=== PATIENT | female | born 1965 | race Two or more races ===

== ENCOUNTER 2020-09-14 17:33 | Outpatient (REF) | payer MEDICAID, SELFPAY | END 2020-09-14 17:34 | disposition home or self-care (01) | LOC: HO.LAB 17:33 | PROVIDERS: Visit Provider Internal Medicine | DX: Z20.822 Contact with and (suspected) exposure to COVID-19 (principal) | CPT/HCPCS: 36415; C9803; U0003 ==

== ENCOUNTER 2020-09-24 11:20 | Outpatient (REF) | payer MEDICAID, SELFPAY | END 2020-09-24 11:21 | disposition home or self-care (01) | LOC: HO.LAB 11:20 | PROVIDERS: Visit Provider Internal Medicine | DX: Z20.822 Contact with and (suspected) exposure to COVID-19 (principal) | CPT/HCPCS: 36415; C9803; U0003; U0005 ==

== ENCOUNTER 2020-10-09 09:38 | Outpatient (REF) | payer MEDICAID, SELFPAY ==
--- NOTE | ~2020-10-09 | MM_ITS ---
EXAMINATION: MM SCREENING DIGITAL BREAST TOMOSYNTHESIS, BILATERAL CLINICAL INFORMATION: Screening. Asymptomatic. Prior outside mammography from [place] at unknown facility and unavailable. Age 55. No known family history breast cancer. The lifetime risk of breast cancer based on the Tyrer-Cuzick Model is 9%. COMPARISON: None. TECHNIQUE: Digital breast tomosynthesis is performed in both the craniocaudal and mediolateral oblique views along with computer-aided detection (CAD). Synthesized 2D images are generated from the tomosynthesis. FINDINGS: There are scattered areas of fibroglandular density (ACR BI-RADS breast composition Category b). There is inhomogeneous parenchymal pattern with benign-appearing bilateral asymmetries. There is no significant mass or architectural abnormality. There are scattered benign-appearing calcifications including grouped coarse mid upper outer left breast, as well as some vascular and probable dermal calcifications. The axilla and skin contours are unremarkable. MM/MM tomosynthesis screening BI IMPRESSION: No mammographic evidence of malignancy. ASSESSMENT: BI-RADS 2: Benign RECOMMENDATION: Routine annual mammography screening. This patient's information was entered into a reminder system with a target due date for their next mammogram.
== END 2020-10-09 09:39 | disposition home or self-care (01) ==
LOC: HO.MAMMO 09:38
PROVIDERS: PCP Emergency Medicine; Visit Provider Emergency Medicine
DX: Z12.31 Encounter for screening mammogram for malignant neoplasm of breast (principal)
CPT/HCPCS: 77063; 77067

== ENCOUNTER 2020-10-24 11:00 | Outpatient (RCR) | payer MEDICAID, SELFPAY | END 2020-11-23 15:05 | disposition other institution (70) | LOC: HO.PT 11:00 | PROVIDERS: PCP Emergency Medicine; Visit Provider Emergency Medicine | DX: M25.572 Pain in left ankle and joints of left foot (principal) | CPT/HCPCS: 97110; 97140; 97162 ==

== ENCOUNTER → 2021-01-09 13:18 | Outpatient (BNVA) | payer MEDICAID, SELFPAY | PROVIDERS: Visit Provider Orthopaedic Surgery | DX: S93.402D Sprain of unspecified ligament of left ankle, subsequent encounter (principal) | CPT/HCPCS: 99202 ==

== ENCOUNTER 2021-03-01 12:00 | Outpatient (RCR) | payer MEDICAID, SELFPAY ==
--- NOTE | 2021-02-12 14:50 | MHC.PT.EP ---
[facility] [place] [facility] [place] [facility] [place] [facility] [address] Lenin Nguyen [address] [phone] F: [phone] F: [phone] F: [phone] F: [phone] Physical Therapy Plan of Care Date of Evaluation: Date of Surgery: Diagnosis: sprain of unspecified ligament of L ankle Assessment: 55 y/o female referred to PT for sprain of unspecified ligament of L ankle. Of note, pt has been to PT for L ankle sprain but had poor attendance. Pt presents wearing a L ankle brace and reports wearing it for walking. PMH significant for HTN, DM, and fibromyalgia. Pt complains of pain and difficulty walking, navigating stairs, sleeping, and getting into/out of bathtub. Examination shows increased pain/tenderness with L lateral ankle palpation, significantly decreased strength of L>R ankle (?limited d/t pain), decreased L ankle ROM, and gait impairments. Balance to be assessed next visit. Recommend PT 2x/week for 6 weeks to address impairments, implement HEP, and optimize functional mobility. Frequency and Duration: The patient will be seen 2x/week for 6 weeks Short Term Goals: 3 weeks: 1. I with HEP 2. Pt will report 50% decrease in reported ankle pain 3. Pt will increase B ankle strength by 1 MMT in all directions Wire Insulator Goals: 6 weeks: 1. I with HEP and self-management of sx 2. Pt will be able to ambulate for >30 mins with <3/10 pain 3. Pt will be able to get into/out of shower with <3/10 pain Treatment Plan: Modalities to reduce pain, spasms and effusion. Manual therapy to restore motion and function. Therapeutic exercise to improve strength and flexibility. Neuromuscular re-education for posture and balance. Therapeutic activities to return to functional activities of daily living. Electronically signed by: Ayde Orozco PT Please sign and return to therapist. Thank you for your referral.
--- NOTE | 2021-03-05 14:10 | MHC.PT.DC ---
[facility] [place] [facility] [place] [facility] [place] [facility] [address] Lenin Nguyen [address] [phone] F: [phone] F: [phone] F: [phone] F: [phone] Physical Therapy Discharge Report Diagnosis: sprain of unspecified ligament of L ankle Date of Surgery: Date of Evaluation: 02/12/21 Date of Discharge: 03/05/21 Treatments to Date: 3 Cancellations to Date: 1 No Shows to Date: 3 Discharge Status: Visit Non-compliance Discharge Summary: Pt d/c secondary to noncompliance with scheduling policy and 3 no show visits and one cancellation. Electronically signed by: Ayde Orozco PT Please sign and return to therapist. Thank you for your referral.
== END 2021-03-05 14:10 | disposition home or self-care (01) ==
LOC: HO.PT 12:00
PROVIDERS: PCP Internal Medicine; Visit Provider Orthopaedic Surgery
DX: S93.402S Sprain of unspecified ligament of left ankle, sequela (principal)
CPT/HCPCS: 97110; 97162

== ENCOUNTER → 2021-09-26 10:43 | Outpatient (BNVA) | payer MEDICAID, SELFPAY | PROVIDERS: PCP Registered Nurse Community Health; Referring Provider Registered Nurse Community Health; Visit Provider Nurse Practitioner | DX: K59.04 Chronic idiopathic constipation (principal); K21.9 Gastro-esophageal reflux disease without esophagitis | CPT/HCPCS: 99202 ==

== ENCOUNTER 2021-10-19 09:33 | Outpatient (REF) | payer MEDICAID, SELFPAY ==
--- NOTE | ~2021-10-19 | MM_ITS ---
EXAMINATION: MM SCREENING DIGITAL BREAST TOMOSYNTHESIS, BILATERAL CLINICAL INFORMATION: Screening. Asymptomatic. The lifetime risk of breast cancer based on the Tyrer-Cuzick Model is 7%. COMPARISON: Mammography: 10/09/2020 (new baseline). TECHNIQUE: Digital breast tomosynthesis is performed in both the craniocaudal and mediolateral oblique views along with computer-aided detection (CAD). Synthesized 2D images are generated from the tomosynthesis. FINDINGS: There are scattered areas of fibroglandular density (ACR BI-RADS breast composition Category b). Breast tissue composition borders on heterogeneously dense in the bilateral anterior breasts. Parenchymal pattern is similar to prior new baseline exam. There is no interval mass or architectural abnormality. The axilla and skin contours are unremarkable. Right breast has grouped dermal calcifications posterior 5:00 position. There are some punctate dermal calcifications also noted bilateral posterior medial breast. The left breast has increased grouped coarse calcifications mid upper outer quadrant. Patient will be recalled for additional magnification views to fully characterize this area. MM/MM tomosynthesis screening BI IMPRESSION: 1. Left: Increased grouped probable benign coarse calcifications mid upper outer quadrant. 2. Right: No mammographic evidence of malignancy. ASSESSMENT: BI-RADS 0: Incomplete - Need Additional Imaging Evaluation RECOMMENDATION: 1. Additional views of the left breast (magnification CC, magnification ML). 2. Radiology department staff will contact the patient for additional imaging. This patient's information was entered into a reminder system with a target due date for their next mammogram.
== END 2021-10-19 09:34 | disposition home or self-care (01) ==
LOC: HO.MAMMO 09:33
PROVIDERS: PCP Internal Medicine; Visit Provider Internal Medicine
DX: Z12.31 Encounter for screening mammogram for malignant neoplasm of breast (principal)
CPT/HCPCS: 77063; 77067

== ENCOUNTER 2021-10-25 12:27 | Outpatient (REF) | payer MEDICAID, SELFPAY ==
--- NOTE | ~2021-10-25 | MM_ITS ---
EXAMINATION: MM DIAGNOSTIC DIGITAL MAMMOGRAPHY, LEFT CLINICAL INFORMATION: Recall from screening for increased grouped probable benign coarse calcification mid upper outer left breast. COMPARISON: Mammography: 10/19/2021, 10/09/2020 (new baseline). TECHNIQUE: Digital mammography is performed in the following views: Magnification CC x2, magnification ML. FINDINGS: There are scattered areas of fibroglandular density (ACR BI-RADS breast composition Category b). The additional magnification views confirm coarse benign-appearing calcifications upper outer left breast increased from 2020. They are arranged in a circular distribution suggesting fibroadenomatous changes. Results are discussed with the patient at time of visit. 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 ASSESSMENT: BI-RADS 3: Probably Benign RECOMMENDATION: Diagnostic left mammography in 6 months. This patient's information was entered into a reminder system with a target due date for their next mammogram.
== END 2021-10-25 12:28 | disposition home or self-care (01) ==
LOC: HO.MAMMO 12:27
PROVIDERS: PCP Registered Nurse Community Health; Visit Provider Internal Medicine
DX: R92.1 Mammographic calcification found on diagnostic imaging of breast (principal)
CPT/HCPCS: 77065

== ENCOUNTER 2021-10-29 14:44 | Outpatient (REF) | payer MEDICAID, SELFPAY ==
[2021-10-29 14:56] LABS: MANUAL DIFF FLAG NO
[2021-10-29 15:10] LABS: Basophils Absolute Auto 0.1 X10*3/uL (0.0-0.2); Basophils Percent Auto 0.9 % (0-2); Eosinophils Absolute Auto 0.2 X10*3/uL (0.0-0.4); Eosinophils Percent Auto 2.6 % (0-4); Hematocrit 39.6 % (37.0-47.0); Hemoglobin 13.1 g/dl (12.0-16.0); Imm Gran Abs Auto 0.01 X10*3/uL (0.00-0.03); Imm Gran Pct Auto 0.2 % (0.0-0.4); Lymphocytes Absolute Auto 2.6 X10*3/uL (1.2-4.9); Lymphocytes Percent Auto 45.3 % (20-40); Mean Corpuscular HGB Conc 33.1 g/dl (31.0-35.0); Mean Corpuscular Volume 87.8 fL (80.0-98.0); Mean Platelet Volume 11.1 fL (9.4-12.3); Monocytes Absolute Auto 0.4 X10*3/uL (0.1-1.2); Monocytes Percent Auto 6.7 % (2-11); Neutrophils Absolute Auto 2.5 x10*3/uL (2.0-8.3); Neutrophils Percent Auto 44.3 % (45-73); Platelet Count 297 X10*3/uL (160-400); Red Blood Count 4.51 X10*6/uL (4.20-5.50); Red Cell Distribution Width 12.1 % (11.0-16.0); White Blood Count 5.7 X10*3/uL (4.8-10.8)
[2021-10-29 15:38] LABS: Alanine Aminotransferase 26 U/L (0-31); Albumin Level 4.2 g/dL (3.5-5.0); Alkaline Phosphatase 110 U/L (39-117); Anion Gap 14 (12-20); Aspartate Amino Transferase 14 U/L (5-31); Bilirubin Total < 0.2 mg/dL (0.0-1.0); Blood Urea Nitrogen 15 mg/dL (9-16); Calcium 9.9 mg/dL (8.4-10.2); Carbon Dioxide 31 mmol/L (22-29); Chloride 95 mmol/L (96-108); Estimated Glomerular Filt Rate 51; Glucose Random 457 mg/dL (60-115); Sodium 135 mmol/L (135-145); Total Protein 7.8 g/dL (6.5-8.0)
[2021-10-29 15:49] LABS: TSH reflex Free T4 7.01 uIU/mL (0.32-4.0)
[2021-10-29 16:24] LABS: Free T4 (Free Thyroxine) 1.09 ng/dL (0.71-1.85)
== END 2021-10-29 14:45 | disposition home or self-care (01) ==
LOC: HO.LAB 14:44
PROVIDERS: PCP Registered Nurse Community Health; Visit Provider Nurse Practitioner
DX: K21.9 Gastro-esophageal reflux disease without esophagitis (principal); K59.04 Chronic idiopathic constipation
CPT/HCPCS: 36415; 80053; 84439; 84443; 85025

== ENCOUNTER → 2021-10-31 15:35 | Outpatient (BNVA) | payer MEDICAID, SELFPAY | PROVIDERS: PCP Registered Nurse Community Health; Referring Provider Registered Nurse Community Health; Visit Provider Nurse Practitioner | DX: K59.04 Chronic idiopathic constipation (principal); K21.9 Gastro-esophageal reflux disease without esophagitis; R10.13 Epigastric pain | CPT/HCPCS: 99212 ==

== ENCOUNTER 2022-04-29 13:04 | Outpatient (REF) | payer MEDICAID, SELFPAY ==
--- NOTE | ~2022-04-29 | MM_ITS ---
EXAMINATION: MM DIAGNOSTIC DIGITAL BREAST TOMOSYNTHESIS, LEFT CLINICAL INFORMATION: Short interval six-month follow-up probable benign fibroadenomatous calcifications mid upper outer left breast. The lifetime risk of breast cancer based on the Tyrer-Cuzick Model is 7%. COMPARISON: Mammography: 10/25/2021, 10/19/2021 (BI-RADS 0), 10/09/2020 (new baseline). TECHNIQUE: Digital breast tomosynthesis is performed in both the craniocaudal and mediolateral oblique views along with computer-aided detection (CAD). Synthesized 2D images are generated from the tomosynthesis. Additional magnification left CC and magnification left ML views are obtained. FINDINGS: There are scattered areas of fibroglandular density (ACR BI-RADS breast composition Category b). Parenchymal pattern is similar to the prior studies and there is no developing density or interval mass or architectural abnormality. The grouped coarse calcifications mid upper outer quadrant show no significant change from prior diagnostic exam. They are arranged circumferentially on the ML view and suggestive of degenerating fibroadenoma. Results are provided to the patient at time of visit by the technologist. MM/MM tomosynthesis diagnostic LT IMPRESSION: -No significant change in probable benign coarse calcifications mid upper outer left breast, suspect fibroadenomatous change. ASSESSMENT: BI-RADS 3: Probably Benign RECOMMENDATION: Diagnostic mammography at time of annual bilateral exam, due in 6 months. This patient's information was entered into a reminder system with a target due date for their next mammogram.
== END 2022-04-29 13:05 | disposition home or self-care (01) ==
LOC: HO.MAMMO 13:04
PROVIDERS: Visit Provider Internal Medicine
DX: R92.1 Mammographic calcification found on diagnostic imaging of breast (principal)
CPT/HCPCS: 77061; 77065

== ENCOUNTER → 2022-08-06 10:53 | Outpatient (BNVA) | payer MEDICAID, SELFPAY | PROVIDERS: PCP Registered Nurse Community Health; Visit Provider Internal Medicine Endocrinology, Diabetes & Metabolism | DX: E11.9 Type 2 diabetes mellitus without complications (principal); Z79.84 Long term (current) use of oral hypoglycemic drugs | CPT/HCPCS: 82947; 83036; 99202 ==

== ENCOUNTER 2022-10-31 14:29 | Outpatient (REF) | payer MEDICAID, SELFPAY ==
--- NOTE | ~2022-10-31 | MM_ITS ---
EXAMINATION: MM DIAGNOSTIC DIGITAL BREAST TOMOSYNTHESIS, BILATERAL CLINICAL INFORMATION: Screening right breast mammogram. Six-month follow-up left breast calcifications. The lifetime risk of breast cancer based on the Tyrer-Cuzick Model is 7.0%. COMPARISON: Mammography: 04/29/2022 and studies dating back to 10/09/2020. TECHNIQUE: Digital breast tomosynthesis is performed in both the craniocaudal and mediolateral oblique views along with computer-aided detection (CAD). Synthesized 2D images are generated from the tomosynthesis. Spot magnification views of the left breast in craniocaudal and 90 degree mediolateral views also performed. FINDINGS: There are scattered areas of fibroglandular density (ACR BI-RADS breast composition Category b). RIGHT BREAST: There is a stable appearance of the right breast with grouping of skin calcifications about the inferior medial aspect. LEFT BREAST: Within the left breast there is a minimal increase in calcifications in dense punctate grouping in the upper outer aspect. Recommend 1 year follow-up bilateral mammography with spot magnification views of the left breast at that time. Results are provided to the patient at time of visit by the technologist. MM/MM tomosynthesis diagnostic BI IMPRESSION: There are no significant changes from prior study. ASSESSMENT: BI-RADS 3: Probably Benign RECOMMENDATION: Diagnostic mammography at time of next annual exam, due in 12 months. This patient's information was entered into a reminder system with a target due date for their next mammogram.
== END 2022-10-31 14:30 | disposition home or self-care (01) ==
LOC: HO.MAMMO 14:29
PROVIDERS: PCP Registered Nurse; Visit Provider Registered Nurse Community Health
DX: R92.1 Mammographic calcification found on diagnostic imaging of breast (principal)
CPT/HCPCS: 77062; 77066

== ENCOUNTER 2022-11-03 09:30 | Outpatient (REF) | payer MEDICAID, SELFPAY ==
[2022-11-03 11:43] LABS: Creatinine Urine 131.42 mg/dL; Microalbum/Creatinine Ratio Ur 5.3 ug/mg cr
[2022-11-03 11:43] LABS: Cholesterol 228 mg/dL; HDL Cholesterol 54 mg/dL; LDL Cholesterol Calculated 139 mg/dl; Triglycerides 176 mg/dL
== END 2022-11-03 09:31 | disposition home or self-care (01) ==
LOC: HO.LAB 09:30
PROVIDERS: PCP Registered Nurse; Visit Provider Internal Medicine Endocrinology, Diabetes & Metabolism
DX: E11.9 Type 2 diabetes mellitus without complications (principal)
CPT/HCPCS: 36415; 80061; 82043

== ENCOUNTER → 2022-11-21 08:35 | Outpatient (BNVA) | payer MEDICAID, SELFPAY | PROVIDERS: PCP Registered Nurse; Visit Provider Dietitian, Registered | DX: E11.9 Type 2 diabetes mellitus without complications (principal) | CPT/HCPCS: 97802 ==

== ENCOUNTER → 2022-12-10 08:50 | Outpatient (BNVA) | payer MEDICAID, SELFPAY | PROVIDERS: PCP Registered Nurse; Visit Provider Internal Medicine Endocrinology, Diabetes & Metabolism | DX: E11.9 Type 2 diabetes mellitus without complications (principal); E78.00 Pure hypercholesterolemia, unspecified | CPT/HCPCS: 82947; 83036; 99212 ==

== ENCOUNTER 2023-01-14 07:52 | Outpatient (REF) | payer MEDICAID, SELFPAY ==
[2023-01-14 09:19] LABS: Anion Gap 12 (12-20); Blood Urea Nitrogen 14 mg/dL (9-16); Calcium 9.6 mg/dL (8.4-10.2); Carbon Dioxide 31 mmol/L (22-29); Chloride 100 mmol/L (96-108); Estimated Glomerular Filt Rate > 60; Glucose Random 204 mg/dL (60-115); Potassium 3.6 mmol/L (3.3-5.1); Sodium 139 mmol/L (135-145)
[2023-01-20 21:54] LABS: NT-proBNP 94 pg/mL (<125)
== END 2023-01-14 07:53 | disposition home or self-care (01) ==
LOC: HO.LAB 07:52
PROVIDERS: PCP Registered Nurse; Visit Provider Internal Medicine Cardiovascular Disease
DX: R07.9 Chest pain, unspecified (principal)
CPT/HCPCS: 36415; 80048; 83880

== ENCOUNTER → 2023-02-05 10:24 | Outpatient (BNVA) | payer MEDICAID, SELFPAY | PROVIDERS: PCP Registered Nurse; Visit Provider Registered Nurse Diabetes Educator | DX: E11.9 Type 2 diabetes mellitus without complications (principal) | CPT/HCPCS: 99211 ==

== ENCOUNTER 2023-02-10 12:51 | Outpatient (AMB) | payer MEDICAID, SELFPAY ==
[2023-02-10 01:00] VITALS: BMI 36.9
--- NOTE | 2023-02-25 10:58 | MHC.AMNUTRGE ---
Intake VS Expanded 02/10/23 01:00 Height 5 ft 6 in Weight 228 lb 6.382 oz BMI 36.9 Intake Visit Reasons: DM Allergies No Known Allergies [No Known Allergies*] Allergy (Verified 12/10/22 08:56) HPI Nutrition Presentation Details Pt presents for [facility] session 2 for T2DM Most Recent Diabetes Results: Microalb/Creat Ratio 5.3 ug/mg cr 11/03/22 Cholesterol 228 mg/dL 11/03/22 HDL Cholesterol 54 mg/dL 11/03/22 Triglycerides 176 mg/dL 11/03/22 Creatinine 0.86 mg/dL (0.5-1.4) 01/14/23 Blood Urea Nitrogen 14 mg/dL (9-16) 01/14/23 Sodium 139 mmol/L (135-145) 01/14/23 Potassium 3.6 mmol/L (3.3-5.1) 01/14/23 Chloride 100 mmol/L (96-108) 01/14/23 Carbon Dioxide 31 mmol/L (22-29) H 01/14/23 Calcium 9.6 mg/dL (8.4-10.2) 01/14/23 PFSH Surgical History History of hysterectomy Hx of section Hx of removal of cyst Family History Mother Heart problem Family history of thyroid problem Hypertension Father Cancer Social History Household Members: Family Household Members Other:: daughter, granddaughter Patient Tobacco Use Status: Former Tobacco user Quit Date: 17 yrs ago Assessment & Plan Assessment & Plan (1) Diabetes: Code(s): E11.9 - Type 2 diabetes mellitus without complications Plan: Pt participated in [facility] education. Pt asked questions relevant to topics discussed. Patient Instructions: Topic discussed related to exercise Benefits of exercise including improving: insulin sensitivity, blood glucose level, cholesterol, blood pressure, mood and prevent muscle wasting Precaution with hypoglycemia and how to prevent and treat hypoglycemia Role of hydration and how to prevent dehydration Balancing meals with protein, complex carbohydrates Review healthy plate method Coding Level of Care Code Nutr Indiv Subseq (48894) Diagnoses Diabetes E11.9 Time Spent (min) 60 Comment [facility] [id number]
== END 2023-02-10 14:56 | disposition home or self-care (01) ==
LOC: HO.ENCR 12:51
PROVIDERS: PCP Registered Nurse; Visit Provider Dietitian, Registered
DX: E11.9 Type 2 diabetes mellitus without complications (principal)

== ENCOUNTER → 2023-02-10 12:51 | Outpatient (BNVA) | payer MEDICAID, SELFPAY | PROVIDERS: PCP Registered Nurse; Visit Provider Dietitian, Registered | DX: E11.9 Type 2 diabetes mellitus without complications (principal); Z71.3 Dietary counseling and surveillance | CPT/HCPCS: 97803 ==

== ENCOUNTER → 2023-02-12 10:49 | Outpatient (BNVA) | payer MEDICAID, SELFPAY | PROVIDERS: PCP Registered Nurse; Visit Provider Dietitian, Registered | DX: E11.9 Type 2 diabetes mellitus without complications (principal) | CPT/HCPCS: 97802 ==

== ENCOUNTER 2023-02-24 13:22 | Outpatient (AMB) | payer MEDICAID, SELFPAY ==
--- NOTE | 2023-02-25 09:25 | MHC.AMNUTRGE ---
Intake Intake Visit Reasons: DM Allergies No Known Allergies [No Known Allergies*] Allergy (Verified 12/10/22 08:56) HPI Nutrition Presentation Details Pt presents for [facility] education for T2DM. ? Patient participated in nutrition group? education session 3? Most Recent Diabetes Results: Microalb/Creat Ratio 5.3 ug/mg cr 11/03/22 Cholesterol 228 mg/dL 11/03/22 HDL Cholesterol 54 mg/dL 11/03/22 Triglycerides 176 mg/dL 11/03/22 Creatinine 0.86 mg/dL (0.5-1.4) 01/14/23 Blood Urea Nitrogen 14 mg/dL (9-16) 01/14/23 Sodium 139 mmol/L (135-145) 01/14/23 Potassium 3.6 mmol/L (3.3-5.1) 01/14/23 Chloride 100 mmol/L (96-108) 01/14/23 Carbon Dioxide 31 mmol/L (22-29) H 01/14/23 Calcium 9.6 mg/dL (8.4-10.2) 01/14/23 PFSH Surgical History History of hysterectomy Hx of section Hx of removal of cyst Family History Mother Heart problem Family history of thyroid problem Hypertension Father Cancer Social History Household Members: Family Household Members Other:: daughter, granddaughter Patient Tobacco Use Status: Former Tobacco user Quit Date: 17 yrs ago Assessment & Plan Assessment & Plan (1) Diabetes: Code(s): E11.9 - Type 2 diabetes mellitus without complications Plan: Pt participated in [facility] education. Pt asked questions relevant to topics discussed. Patient Instructions: Nutrition Topics Discussed were related to: -How to interpret the food label Discussed Serving Size and servings per container What is the % daily value -Recommendations for fats and sodium -Differences between fats (saturated fats, trans fats, monounsaturated fats , polyunsaturated fats) and food sources of various fats - Reading ingredient list -Goals for blood cholesterol level -Relationship of fats and sodium and heart health -Practice reading food labels and practice making healthier choices Coding Level of Care Code Nutr Indiv Subseq (38867) Diagnoses Diabetes E11.9 Time Spent (min) 60 Comment [facility] [id number]
== END 2023-02-24 16:19 | disposition home or self-care (01) ==
PROVIDERS: PCP Registered Nurse; Referring Provider Internal Medicine Endocrinology, Diabetes & Metabolism; Visit Provider Dietitian, Registered
DX: E11.9 Type 2 diabetes mellitus without complications (principal)

== ENCOUNTER → 2023-02-24 13:22 | Outpatient (BNVA) | payer MEDICAID, SELFPAY | PROVIDERS: Visit Provider Dietitian, Registered | DX: E11.9 Type 2 diabetes mellitus without complications (principal) | CPT/HCPCS: 97803 ==

== ENCOUNTER 2023-02-26 09:17 | Outpatient (AMB) | payer MEDICAID, SELFPAY ==
[2023-02-26 09:18] VITALS: BP 120/70; PULSE 65; O2SAT 98; BMI 37.2
--- NOTE | 2023-02-26 09:18 | A.OFFVIS_ITS ---
Intake Vital Signs 02/26/23 09:18 Height 5 ft 6 in Weight 230 lb 6.129 oz BMI 37.2 BP 120/70 Blood Pressure Location Rt brachial Position Sitting Pulse 65 Pulse Source Pulse Oximeter Pulse Oximetry (%) 98 Oxygen Delivery Method Room Air Intake Visit Reasons: f/u Type 2 DM Intake Note: Patient present today to follow up on Type 2 Diabetes Mellitus. Last Diabetic Eye exam: February 23, 2023 Last Podiatry Visit: Doesn't see one Random Glucose: 259mg/dl HgA1C: 9.0% 12/10/2022 Allergies No Known Allergies [No Known Allergies*] Allergy (Verified 02/26/23 09:18) Medication List - Last Reconciled 02/26/23 by Shaggy Lowe MD albuterol sulfate 2.5 mg inhalation Q6H alcohol swabs (Alcohol Prep Pads) 0 pad topical DIRECTED amitriptyline 150 mg PO BEDTIME amlodipine 2.5 mg PO DAILY aspirin 81 mg PO DAILY atenolol 25 mg PO DAILY atorvastatin 80 mg PO DAILY blood sugar diagnostic (FreeStyle Lite Strips) As directed bupropion HCl 75 mg PO TID calcium polycarbophil (Fiber-Lax) 625 mg PO QAM cholecalciferol (vitamin D3) (Vitamin D3) 50 mcg PO QAM dulaglutide (Trulicity) 1.5 mg (0.5 mL) subcut QWEEK flash glucose scanning reader (DispopStyle José 2 [place]) As directed flash glucose sensor (FreeStyle José 2 Sensor kit) As directed fluticasone propionate 220 mcg/actuation (Flovent HFA) 1 puff inhalation BID furosemide 20 mg PO QAM gabapentin 100 mg PO BEDTIME glucose (TRUEplus Glucose) 16 grams PO hydrochlorothiazide 12.5 mg PO DAILY insulin glargine (Lantus Solostar U-100 Insulin) 30 units subcut QPM insulin lispro (Humalog KwikPen (U-100) Insulin) 12 units (0.12 mL) subcut QAM isosorbide mononitrate 10 mg PO BID lancets (TRUEplus Lancets) As directed levothyroxine 175 mcg PO QAM metformin 1,000 mg PO BIDWMEAL montelukast 10 mg PO DAILY pantoprazole (Protonix) 40 mg PO BID 30 days peg 3350-electrolytes 236-22.74-6.74 -5.86 gram (Golytely) 240 mL PO Q10M 1 day pen needle, diabetic (P[place]ips) As directed sennosides (senna) 17.2 mg (2 x 8.6 mg) PO BEDTIME 30 days sertraline 25 mg PO DAILY trazodone 25 mg PO DAILY HPI HPI Comments History of Present Illness Details 57 YO F who is seen in consultation for T2DM at the request of PCP. Initially diagnosed with T2DM in 35 yrs . Saw [facility] [place] Was initially started on treatment with metformin . Current regimen metformin 1000 mg BID Trulicity 1.5 mg Qwkly Lantus 25 units . Humalog 12 units aC but only taking prior to breakfast Per the CGM José CGMS is active 50 % of time . data the patient's predicted A1C is 8.1% Avg glucose is 201 . Variability of 30.3 The patient's blood sugars were in target 41% of the time, above target 59% of the time, and below target 0% of the time Reports low sugars Treats lows with OJ . Checks sugar after to ensure it is rising. Waits 30 min Family history of T2DM in mother, grandmother, uncle , sister . Has eyes checked yearly, last eye exam appt 08/19/2022 , denies retinopathy. Has neuropathy, ,Not sees podiatry. Complains of right 2nd toe toenail pain Denies nephropathy, not on JAMI/ARB. Has HLD, on statin. Has CAD. Had diabetes education. PFSH Surgical History History of hysterectomy Hx of section Hx of removal of cyst Family History Mother Heart problem Family history of thyroid problem Hypertension Father Cancer Social History Household Members: Family Household Members Other:: daughter, granddaughter Patient Tobacco Use Status: Former Tobacco user Quit Date: 17 yrs ago Physical Exam Vital Signs: Last Vital Signs Pulse 65 02/26/23 09:18 BP 120/70 02/26/23 09:18 Pulse Ox 98 02/26/23 09:18 Oxygen Delivery Method Room Air 02/26/23 09:18 BMI result Body Mass Index 37.2 Absence of Cushingoid features. Absence of acromegalic features. Neck exam reveals nl size thyroid about 15 gms. No thyroid nodules palpable. No carotid bruits present. Lungs CTA. Heart S1 S2, Reg R/R. No M/R/ G. Skin exam reveals absence of vitiligo or acanthosis nigricans. Abdominal exam reveals Soft NT/ND with NA BS. No organomegaly present. Neck Other: . Extrem Other: Visual exam of foot performed. No ulcerations or open lesions. + onchomycosis pain on palpation of the 2nd right toenail, no callouses.Pulses 2 + distally Sensation intact to monofilament exam. Vibratory sensation sensed is decreased with 128 Hz tuning fork Assessment & Plan Assessment & Plan (1) Diabetes: Code(s): E11.9 - Type 2 diabetes mellitus without complications Plan: This is a 57-year-old female with a history of type 2 diabetes being treated with s metformin, Trulicity and basal-bolus insulin with poor glycemic control and known macrovascular complications namely CAD. The plan is to increase Trulicity to 3 mg q.week. Also told patient to take the Humalog prior to lunch and dinner if she eats. She will follow-up with the family living educator. I also referred to Podiatry (2) High cholesterol: Code(s): E78.00 - Pure hypercholesterolemia, unspecified Plan: LDL not at goal. Will increase atorvastatin to 80 mg recheck lipid profile in 8 weeks Orders: Referrals Podiatry Referral E11.9 - Type 2 diabetes mellitus without complications Medications: New dulaglutide (Trulicity) 3 mg (0.5 mL) subcut QWEEK 2 mL 4RF Discontinued dulaglutide (Trulicity) Discontinued Reason: Doctor's Order 1.5 mg (0.5 mL) subcut QWEEK 2 mL 4RF Coding Level of Care Code Est Pt Level 4 (81890) Diagnoses Diabetes E11.9 High cholesterol E78.00
[2023-02-26 09:29] LABS: Glucose, Whole Blood 259 mg/dL (60-115)
== END 2023-02-26 09:45 | disposition home or self-care (01) ==
PROVIDERS: PCP Registered Nurse; Visit Provider Internal Medicine Endocrinology, Diabetes & Metabolism
DX: E11.9 Type 2 diabetes mellitus without complications (principal); E78.00 Pure hypercholesterolemia, unspecified
CPT/HCPCS: 99214

== ENCOUNTER → 2023-02-26 09:17 | Outpatient (BNVA) | payer MEDICAID, SELFPAY | PROVIDERS: Visit Provider Internal Medicine Endocrinology, Diabetes & Metabolism | DX: E11.9 Type 2 diabetes mellitus without complications (principal); E78.00 Pure hypercholesterolemia, unspecified | CPT/HCPCS: 82947; 99212 ==

== ENCOUNTER 2023-04-29 11:58 | Outpatient (REF) | payer MEDICAID, SELFPAY ==
[2023-04-29 13:59] LABS: Microalbum/Creatinine Ratio Ur 4.3 ug/mg cr (<30)
[2023-04-29 14:16] LABS: Cholesterol 188 mg/dL (<200); HDL Cholesterol 44 mg/dL (>40); LDL Cholesterol Calculated 100 mg/dL (<100); Triglycerides 220 mg/dL (<150)
[2023-04-29 14:21] LABS: Thyroid Stimulating Hormone 0.82 uIU/mL (0.32-4.0)
== END 2023-04-29 11:59 | disposition home or self-care (01) ==
LOC: HO.HHCL 11:58
PROVIDERS: Visit Provider Registered Nurse
DX: E78.00 Pure hypercholesterolemia, unspecified (principal); E11.65 Type 2 diabetes mellitus with hyperglycemia; E03.9 Hypothyroidism, unspecified; Z79.4 Long term (current) use of insulin
CPT/HCPCS: 36415; 80061; 82043; 82570; 84443

== ENCOUNTER 2023-06-04 09:17 | Outpatient (REF) | payer MEDICAID, SELFPAY ==
--- NOTE | ~2023-06-04 | XR_ITS ---
EXAMINATION: XR CHEST CLINICAL INFORMATION: Severely cough for 3 days.. COPD. COMPARISON: Chest 10/26/2019 TECHNIQUE: 2 views of the chest were obtained. FINDINGS: The lungs are well-expanded and clear. The heart size and pulmonary vascularity is normal. No gross bony abnormalities seen. XR/XR chest 2V IMPRESSION: Unremarkable chest examination.
== END 2023-06-04 09:18 | disposition home or self-care (01) ==
LOC: HO.HHCX 09:17
PROVIDERS: Visit Provider Pediatrics
DX: J45.909 Unspecified asthma, uncomplicated (principal)
CPT/HCPCS: 71046

== ENCOUNTER 2023-07-31 11:13 | Outpatient (REF) | payer MEDICAID, SELFPAY ==
--- NOTE | ~2023-07-31 | XR_ITS ---
EXAMINATION: XR CHEST CLINICAL INFORMATION: Persistent cough. COMPARISON: 06/04/2023 TECHNIQUE: 2 views of the chest were obtained. FINDINGS: No acute findings compared to 06/04/2023. Lungs are well expanded. No consolidation or pleural effusion. The bronchial de la rosa appear to be chronically mildly thickened. Cardiac silhouette has normal size and contour. There is mild atherosclerotic calcification of the aortic arch. Mild spondylosis of the thoracic spine. XR/XR chest 2V IMPRESSION: * No evidence of pneumonia. * The bronchial de la rosa appear to be chronically mildly thickened. Query if there is any history of asthma or bronchitis to account for this observation.
== END 2023-07-31 11:14 | disposition home or self-care (01) ==
LOC: HO.HHCX 11:13
PROVIDERS: Visit Provider Registered Nurse
DX: J45.31 Mild persistent asthma with (acute) exacerbation (principal); R05.2 Subacute cough
CPT/HCPCS: 71046

== ENCOUNTER 2023-09-07 19:27 | Outpatient (REF) | payer MEDICAID, SELFPAY ==
[2023-09-07 20:17] LABS: Influenza A PCR NEGATIVE (Negative); Influenza B PCR NEGATIVE (Negative); Resp Syncy Virus RNA Qual PCR NEGATIVE (Negative); SARS COV2 PCR INHOUSE NEGATIVE (Negative)
== END 2023-09-07 19:28 | disposition home or self-care (01) ==
LOC: HO.HHCLNP 19:27
PROVIDERS: Visit Provider Emergency Medicine
DX: Z11.52 Encounter for screening for COVID-19 (principal); R68.89 Other general symptoms and signs
CPT/HCPCS: 0241U

== ENCOUNTER 2023-11-13 11:08 | Outpatient (REF) | payer MEDICAID, SELFPAY ==
[2023-11-13 13:17] LABS: MANUAL DIFF FLAG NO
[2023-11-13 13:25] LABS: Basophils Absolute Auto 0.1 X10*3/uL (0.0-0.2); Eosinophils Absolute Auto 0.2 X10*3/uL (0.0-0.4); Eosinophils Percent Auto 3.4 % (0-4); Hematocrit 40.3 % (37.0-47.0); Hemoglobin 13.4 g/dl (12.0-16.0); Imm Gran Abs Auto 0.01 X10*3/uL (0.00-0.03); Imm Gran Pct Auto 0.2 % (0.0-0.4); Lymphocytes Absolute Auto 2.3 X10*3/uL (1.2-4.9); Lymphocytes Percent Auto 45.7 % (20-40); Mean Corpuscular HGB Conc 33.3 g/dl (31.0-35.0); Mean Corpuscular Hemoglobin 28.9 pg (27.0-33.0); Mean Corpuscular Volume 86.9 fL (80.0-98.0); Mean Platelet Volume 11.6 fL (9.4-12.3); Monocytes Absolute Auto 0.4 X10*3/uL (0.1-1.2); Neutrophils Absolute Auto 2.1 x10*3/uL (2.0-8.3); Neutrophils Percent Auto 41.7 % (45-73); Platelet Count 289 X10*3/uL (160-400); Red Blood Count 4.64 X10*6/uL (4.20-5.50); Red Cell Distribution Width 12.4 % (11.0-16.0)
[2023-11-13 14:31] LABS: Alanine Aminotransferase 25 U/L (0-31); Alkaline Phosphatase 150 U/L (39-117); Anion Gap 14 (12-20); Aspartate Amino Transferase 15 U/L (5-31); Bilirubin Total 0.3 mg/dL (0.0-1.0); Blood Urea Nitrogen 14 mg/dL (9-16); Calcium 9.4 mg/dL (8.4-10.2); Carbon Dioxide 29 mmol/L (22-29); Chloride 98 mmol/L (96-108); Estimated Glomerular Filt Rate > 60; Glucose Random 342 mg/dL (60-115); Potassium 4.6 mmol/L (3.3-5.1); Sodium 136 mmol/L (135-145); Total Protein 7.7 g/dL (6.5-8.0)
[2023-11-13 14:48] LABS: Folate 7.3 ng/mL (> or = 4.0); TSH reflex Free T4 16.46 uIU/mL (0.32-4.0); Thyroid Stimulating Hormone 16.46 uIU/mL (0.32-4.0); Vitamin B12 590 pg/mL (200-900)
[2023-11-13 15:30] LABS: Free T4 (Free Thyroxine) 0.73 ng/dL (0.71-1.85)
== END 2023-11-13 11:09 | disposition home or self-care (01) ==
LOC: HO.HHCL 11:08
PROVIDERS: Visit Provider Registered Nurse
DX: R25.2 Cramp and spasm (principal); E03.9 Hypothyroidism, unspecified
CPT/HCPCS: 36415; 80053; 82607; 82746; 83735; 84439; 84443; 85025

== ENCOUNTER 2023-12-17 13:40 | Outpatient (REF) | payer MEDICAID, SELFPAY ==
--- NOTE | ~2023-12-17 | MM_ITS ---
EXAMINATION: MM DIAGNOSTIC DIGITAL BREAST TOMOSYNTHESIS, BILATERAL CLINICAL INFORMATION: Year 2 follow-up for left breast upper outer calcifications middle one third, probably benign. This will establish two-year stability if unchanged. Patient also due for bilateral screening. COMPARISON: Mammography: 10/31/2022, 04/29/2022, 10/25/2021, 10/19/2021 (BI-RADS 0), 10/09/2020 (new baseline). TECHNIQUE: Digital breast tomosynthesis is performed in both the craniocaudal and mediolateral oblique views along with computer-aided detection (CAD). Synthesized 2D images are generated from the tomosynthesis. In addition to standard views, 2-D spot magnification left CC and ML views were included. FINDINGS: There are scattered areas of fibroglandular density (ACR BI-RADS breast composition Category b). There has been no aggressive change of the coarse calcifications in the upper outer left breast, which are most consistent with degenerating fibroadenomatoid calcifications. These have remained nonaggressive over a two-year period, establishing benignity. An underlying density most likely represents a degenerating fibroadenoma. Otherwise, no developing mass, new suspicious calcifications, or developing architectural distortion in either breast. The parenchymal pattern is unchanged from prior exams bilaterally. Prominent axillary fat pads again noted. No skin abnormalities. MM/MM tomosynthesis diagnostic BI IMPRESSION: -No mammographic evidence of malignancy. -Dystrophic calcifications upper outer left breast have been stable/nonaggressive over a two-year related, establishing benignity. These are most likely related to an underlying degenerating fibroadenoma. No further follow-up required. Recommend patient return to routine annual screening bilaterally. ASSESSMENT: BI-RADS BI-RADS 2 - Benign Findings RECOMMENDATION: 1 year F/U Results were provided to the patient at time of visit by the technologist. This patient's information was entered into a reminder system with a target due date for their next mammogram.
== END 2023-12-17 13:41 | disposition home or self-care (01) ==
LOC: HO.MAMMO 13:40
PROVIDERS: Visit Provider Registered Nurse
DX: R92.1 Mammographic calcification found on diagnostic imaging of breast (principal)
CPT/HCPCS: 77062; 77066

== ENCOUNTER → 2023-12-17 14:00 | Outpatient (BNV) | payer MEDICAID, SELFPAY | PROVIDERS: Visit Provider Radiology Diagnostic Radiology | DX: R92.1 Mammographic calcification found on diagnostic imaging of breast (principal) | CPT/HCPCS: 77062; 77066 ==

== ENCOUNTER 2024-01-07 09:10 | Outpatient (REF) | payer MEDICAID, SELFPAY ==
--- NOTE | ~2024-01-07 | XR_ITS ---
EXAMINATION: XR CHEST CLINICAL INFORMATION: Intermittent asthma cough COMPARISON: Previous dated 07/31/2023 TECHNIQUE: 2 views of the chest were obtained. FINDINGS: No convincing evidence for an acute process. Lung azul are felt to be grossly clear. No infiltrate or effusion. The cardiac silhouette is felt to be comparable. Calcified aortic arch is noted. The hilar regions are felt to be comparable. Some degeneration in the thoracic spine. XR/XR chest 2V IMPRESSION: No acute finding.
== END 2024-01-07 09:11 | disposition home or self-care (01) ==
LOC: HO.HHCX 09:10
PROVIDERS: Visit Provider Emergency Medicine
DX: J45.21 Mild intermittent asthma with (acute) exacerbation (principal)
CPT/HCPCS: 71046

== ENCOUNTER 2024-02-24 18:52 | Outpatient (REF) | payer MEDICAID, SELFPAY ==
[2024-02-25 11:57] LABS: Bacterial Vaginosis PCR POSITIVE (Negative); Candida Group PCR DETECTED (Not Detect); Candida glab krusei PCR NOT DETECTED (Not Detect); Trichomonas vaginalis PCR NOT DETECTED (Not Detect)
== END 2024-02-24 18:53 | disposition home or self-care (01) ==
LOC: HO.HHCLNP 18:52
PROVIDERS: Visit Provider Nurse Practitioner
DX: N89.8 Other specified noninflammatory disorders of vagina (principal)
CPT/HCPCS: 0352U; 87086

== ENCOUNTER 2024-06-21 10:37 | Outpatient (REF) | payer MEDICAID, SELFPAY ==
[2024-06-21 14:19] LABS: Cholesterol 254 mg/dL (<200); HDL Cholesterol 46 mg/dL (>40); LDL Cholesterol Calculated 180 mg/dL (<100); Triglycerides 144 mg/dL (<150)
[2024-06-21 14:20] LABS: Free T4 (Free Thyroxine) 0.77 ng/dL (0.71-1.85); Thyroid Stimulating Hormone 10.65 uIU/mL (0.32-4.0)
[2024-06-21 14:38] LABS: Creatinine Urine 218.18 mg/dL
== END 2024-06-21 10:38 | disposition home or self-care (01) ==
LOC: HO.HHCL 10:37
PROVIDERS: Visit Provider Registered Nurse
DX: E03.9 Hypothyroidism, unspecified (principal); E11.65 Type 2 diabetes mellitus with hyperglycemia; Z79.4 Long term (current) use of insulin; E06.3 Autoimmune thyroiditis
CPT/HCPCS: 36415; 80061; 82043; 82570; 84439; 84443

== ENCOUNTER 2024-10-31 13:47 | Outpatient (REF) | payer MEDICAID, SELFPAY ==
--- NOTE | ~2024-10-31 | XR_ITS ---
EXAMINATION: XR CHEST 2 VIEWS HISTORY: 59 y.o F with asthma and chills, productive cough, r/o consolidation COMPARISON: Comparison is made with the prior examination dated 01/07/2024. FINDINGS: PA and lateral views of the chest are submitted. The lungs are expanded and clear. There is no pleural effusion, pneumothorax, or pulmonary vascular congestion. The heart is normal in size. The bones are intact. XR/XR chest 2V IMPRESSION: No acute cardiopulmonary abnormality. Electronically signed by: Shaggy Chapman MD 10/31/2024 02:18 PM EDT
--- OUTSIDE RECORDS SUMMARY | 2024-10-31 16:06 | XMS_ITS | Encounter Summary ---
Author Organization [employer] Address [address] [place] [address] 7 [place] [address] Care Team Providers Care Rocket Propellant Plant Supervisor Name Role Phone [place] [facility] Primary Care Provider [phone] Crystal Vital PharmD Unavailable [phone] Reason for Visit * Reason Onset Date Comments Med Refill 08/01/2022 Encounter Details Date Type Department Care Team (Late st Contact Info) Description 08/01/2022 Telephone [facility] MEDICINE [address] [place], [place] [phone] [facility] [address] [place], [place] [phone] Med Refill Social History Tobacco Use Types Packs/Day Years Used Date Smoking Tobacco: Never Smokeless Tobacco: Never Alcohol Use Standard Drinks/Week Comments Never 0 (1 standard drink = 0.6 oz pur e alcohol) Comments Unknown Sex and Gender Information Value Date Recorded Sex Assigned at Female 06/16/2022 10:31 AM EDT Legal Sex Female 10:31 AM EDT Gender Identity Choose not to disclose 10:31 AM EDT Sexual Orientation Choose not to disclose 2021 10:31 AM EDT COVID-19 Exposure Response Date Recorded In the last 10 days, have yo u been in contact with someone who was confirmed or suspected to have Coronavirus/COVID-19? No / Unsure 07/24/2022 10:03 AM EST documented as of this encounter Miscellaneous Notes * Telephone Encounter - Aracely Mars - 08/01/2022 2:16 PM EST TC from pt requesting a new script for Trulicity. Pt stated pharmacy only has trulicity .75mg, 1.5mg or 3mg. PCP LAWN MOWER MECHANIC [place] documented in this encounter Plan of Treatment Upcoming Encounters Date Type Department Care Team (Late st Contact Info) Description 11/14/2024 1:00 PM EDT Medication Management [facility] MEDICINE [address] [place] [address] Crystal Vital, PharmD 230 [place] [address] 12/22/2024 1:00 PM EDT Office Visit [facility] OPTOMETRY [address] [place] [address] Jenny Blanchard, OD [address] [place] [address] 02/03/2025 1:00 PM EDT Office Visit [facility] MEDICINE [address] [place] [address] Nemo Savage FNP 230 [place] [address] documented as of this encounter Visit Diagnoses Not on filedocumented in this encounter Care Teams Rocket Propellant Plant Supervisor Relationship Specialty Start Date End Date Nemo Savage FNP [address] [place] [address] PCP - General Family Medicine 04/14/22 Crystal Vital, PharmD [address] [place] [address] Pharmacist Internal Medicine 05/16/24 documented as of this encounter
--- OUTSIDE RECORDS SUMMARY | 2024-10-31 16:06 | XMS_ITS | Encounter Summary ---
Author Organization [employer] Address [address] [place] [address] 7 [place] [address] Care Team Providers Care Mud Jack Operator Name Role Phone [place] [facility] Primary Care Provider [phone] Crystal Vital PharmD Unavailable [phone] Reason for Visit * Reason Onset Date Comments Appointment Request 07/16/2023 Encounter Details Date Type Department Care Team ([facility] st Contact Info) Description 07/16/[address] [facility] MEDICINE [address] [place], [place] [phone] [facility] [address] [place], [place] [phone] Appointment Request Social History Tobacco Use Types Packs/Day Years Used Date Smoking Tobacco: Never Smokeless Tobacco: Never Alcohol Use Standard Drinks/Week Comments Never 0 (1 standard drink = 0.6 oz pur e alcohol) Depression Answer Date Recorded Patient Health Questionnaire-9 Score 21 08/26/2022 Housing Stability Answer Date Recorded What is your housing situation today? I have housing today, but I am worried about losing housing in the future 06/03/[address] you li ve. Do you have problems with any of the following? None of the above 06/03/2023 Food Insecurity Answer Date Recorded Within the past 12 months, y ou worried that your food would run out before you got money to buy more: Sometimes True 2022 Within the past 12 months,th e food you bought just didn't last and you didn't have enough money to get more: Sometimes True 06/03/2023 Transportation Answer Date Recorded In the past 12 months, has l ack of transportation kept you from medical appts, meetings, work or from getting things needed for daily living? No 06/03/2023 Utilities Answer Date Recorded In the past 12 months, has t he electric, gas, oil or water company threatened to shut off services in your home? No 06/03/2023 Depression Answer Date Recorded Patient Health Questionnaire-2 Score 2 10/22/2022 Comments Unknown Sex and Gender Information Value Date Recorded Sex Assigned at Female 06/16/2022 10:31 AM EDT Legal Sex Female 10:31 AM EDT Gender Identity Choose not to disclose 10:31 AM EDT Sexual Orientation Choose not to disclose 2021 10:31 AM EDT documented as of this encounter Miscellaneous Notes * Telephone Encounter - Jason Swain - 07/16/2023 12:15 PM EST Tc from [facility] working with [employer] to schedule a physical appt because pt is overdue. Photolettering Machine Operator did not see anything available. If any questions please contact Sabrina at [phone]. documented in this encounter Plan of Treatment Upcoming Encounters Date Type Department Care Team ([facility] st Contact Info) Description 11/14/2024 1:00 PM EDT Medication Management [facility] MEDICINE [address] [place] [address] Crystal Vital, PharmD [address] [place] [address] 12/22/2024 1:00 PM EDT Office Visit [facility] OPTOMETRY [address] [place] [address] Jenny Blanchard, CARLINE [address] [place] [address] 02/03/2025 1:00 PM EDT Office Visit [facility] MEDICINE [address] [place] [address] Nemo Savage, GUTTER INSTALLER 230 [place] [address] documented as of this encounter Visit Diagnoses Not on filedocumented in this encounter Additional Health Concerns Assessment Noted Time PHQ-9 Depression Total Score: 21 023 8:54 AM EST documented as of this encounter Care Teams Mud Jack Operator Relationship Specialty Start Date End Date Nemo Savage FNP [address] [place] [address] PCP - General Family Medicine 04/14/22 Crystal Vital, Yesika [address] [place] [address] Pharmacist Internal Medicine 05/16/24 documented as of this encounter
--- OUTSIDE RECORDS SUMMARY | 2024-10-31 16:06 | XMS_ITS | Encounter Summary ---
Author Organization [employer] Address [address] [place] [address] 7 [place] [address] Care Team Providers Care Scoreboard Operator Name Role Phone [place] [facility] Primary Care Provider [phone] Crystal Vital PharmD Unavailable [phone] Reason for Visit * Reason Comments Med Refill Encounter Details Date Type Department Care Team (Late st Contact Info) Description 08/26/2023 Refill [facility] PEDS [address] [place] [address] [facility] [address] [place] [address] Essential hypertension Social History Tobacco Use Types Packs/Day Years Used Date Smoking Tobacco: Never Smokeless Tobacco: Never Alcohol Use Standard Drinks/Week Comments Never 0 (1 standard drink = 0.6 oz pur e alcohol) Depression Answer Date Recorded Patient Health Questionnaire-9 Score 8 07/31/2023 Patient Health Questionnaire-9 Score 8 07/31/2023 Last PHQ-9: Questionnaire Data Not on file 1 10/01/2022 Housing Stability Answer Date Recorded What is your housing situation today? I have noemi anurag 08/24/[address] you li ve. Do you have problems with any of the following? Pests such as bugs, ants, or mice 08/24/2023 Food Insecurity Answer Date Recorded Within the [...] to shut off services in your home? Yes 08/24/2023 Depression Answer Date Recorded Patient Health Questionnaire-2 Score 2 07/31/2023 Comments Unknown Sex and Gender Information Value Date Recorded Sex Assigned at Female 06/16/2022 10:31 AM EDT Legal Sex Female 10:31 AM EDT Gender Identity Choose not to disclose 10:31 AM EDT Sexual Orientation Choose not to disclose 2021 10:31 AM EDT documented as of this encounter Plan of Treatment Upcoming Encounters Date Type Department Care Team (Late st Contact Info) Description 11/14/2024 1:00 PM EDT Medication Management [facility] MEDICINE [address] [place] [address] Crystal Vital, PharmD [address] [place] [address] 12/22/2024 1:00 PM EDT Office Visit [facility] OPTOMETRY [address] [place] [address] Jenny Blanchard, OD [address] [place] [address] 02/03/2025 1:00 PM EDT Office Visit [facility] MEDICINE [address] [place] [address] Nemo Savage FNP 230 [place] [address] documented as of this encounter Visit Diagnoses Diagnosis Essential hypertension Unspecified essential hypertension documented in this encounter Additional Health Concerns Assessment Noted Time PHQ-9 Depression Total Score: 8 07/31/20 23 10:25 AM EST documented as of this encounter Care Teams Scoreboard Operator Relationship Specialty Start Date End Date Nemo Savage FNP [address] [place] [address] PCP - General Family Medicine 04/14/22 Crystal Vital, VerenaD [address] [place] [address] Pharmacist Internal Medicine 05/16/24 documented as of this encounter
--- OUTSIDE RECORDS SUMMARY | 2024-10-31 16:06 | XMS_ITS | Encounter Summary ---
Author Organization [employer] Address [address] [place] [address] 7 [place] [address] Care Team Providers Care Senior Benefits Manager Name Role Phone Nemo Savage RECOVERY AUDITOR Primary Care Provider [phone] Crystal Vital PharmD Unavailable [phone] Reason for Referral * Consultation (Routine) - Authorized Specialty Diagnoses / Procedures Referred By Jordan diallo Referred To Contact Pharmacy Diagnoses Type 2 diabetes mellitus with hyperglycemia, with long-term current use of insulin (CMS/HCC) Mackenzie Callahan MD [address] [place] [address] Phone: tel: fax: Referral ID Status Reason Start Date Expiration Date Visits Requested Visits Authorized [id number] Authorized Consult and Treat 06/10/2024 06/10/2025 6 6 Encounter Details Date Type Department Care Team (Late st Contact Info) Description 06/10/2024 Orders Only [facility] MEDICINE [address] [place], [place] [phone] Mackenzie Callahan MD [address] [place] [address] Type 2 diabetes mellitus with hyperglycemia, with long-term current use of insulin (CMS/HCC) (Primary Dx) Social History Tobacco Use Types Packs/Day Years Used Date Smoking Tobacco: Former Cigarettes Smokeless Tobacco: Never Alcohol Use Standard Drinks/Week Comments Never 0 (1 standard drink = 0.6 oz pur e alcohol) Depression Answer Date Recorded Patient Health Questionnaire-9 Score 9 02/04/2024 Patient Health Questionnaire-9 Score 9 02/04/2024 Last PHQ-9: Questionnaire Data Not on file 0 02/04/2024 Housing Stability Answer Date Recorded What is your housing situation today? I have noemi osborn 08/24/[address] you li [...] Answer Date Recorded Patient Health Questionnaire-2 Score 4 02/04/2024 Comments Unknown Sex and Gender Information Value [...] Description 11/14/2024 1:00 PM EDT Medication Management [facility] MEDICINE [address] [place] [address] Crystal Vital, PharmD [address] [place] [address] 12/22/2024 1:00 PM EDT Office Visit [facility] OPTOMETRY [address] [place] [address] Jenny Blanchard, CARLINE [address] [place] [address] 02/03/2025 1:00 PM EDT Office Visit [facility] MEDICINE [address] [place] [address] Nemo SavageELIELP 230 [place] [address] Scheduled Referrals Name Type Priority Associated Diagnoses Orde r Schedule Referral to Pharmacy CDTM Outpatient Referral Routine Type 2 diabetes mellitus with hyperglycemia, with long-term current use of insulin ([facility]) Ordered: 06/10/2024 documented as of this encounter Goals Goal Patient Goal Type Associated Problems Recent Progress Patient-Stated? Author Hemoglobin A1c < 7.5 Result Component 8.5(10/31/2024 1:39 PM EDT) No Crystal Vital, Yesika documented as of this encounter Visit Diagnoses Diagnosis Type 2 diabetes mellitus with hyperglycemia, with long-term current use of insulin ([facility])- Primary documented in this encounter Additional Health Concerns Assessment Noted Time PHQ-9 Depression Total Score: 9 02/04/20 24 11:53 AM EDT documented as of this encounter Care Teams Senior Benefits Manager Relationship Specialty Start Date End Date [place] [address] PCP - General Family Medicine 04/14/22 Crystal Vital, Yesika [address] [place] [address] Pharmacist Internal Medicine 05/16/24 documented as of this encounter
--- OUTSIDE RECORDS SUMMARY | 2024-10-31 16:06 | XMS_ITS | Encounter Summary ---
Author Organization [employer] Address [address] [place] [address] 7 [place] [address] Care Team Providers Care Injection Wax Molder Name Role Phone [facility] [place] [facility] Primary Care Provider [phone] Crystal Vital PharmD Unavailable Encounter Details Date Type Department Care Team (Late st Contact Info) Description 07/23/2022 Abstract [facility] MEDICINE [address] [place] [address] [employer] [address] [place] [address] Social History Tobacco Use Types Packs/Day Years Used Date Smoking Tobacco: Never Assessed Comments Unknown Sex and Gender Information Value [...] AM EST documented as of this encounter Plan of Treatment Upcoming Encounters Date Type Department Care Team (Late st Contact Info) Description 11/14/2024 1:00 PM EDT Medication Management [facility] MEDICINE [address] [place] [address] Crystal Vital, PharmD [address] [place] [address] 12/22/2024 1:00 PM EDT Office Visit [facility] OPTOMETRY [address] [place] [address] Jenny Blanchard, OD [address] [place] [address] 02/03/2025 1:00 PM EDT Office Visit [facility] MEDICINE [address] [place] [address] Nmeo Savage FNP [address] [place] [address] documented as of this encounter Visit Diagnoses Not on filedocumented in this encounter Care Teams Injection Wax Molder Relationship Specialty Start Date End Date Nemo Savage FNP [address] [place] [address] PCP - General Family Medicine 04/14/22 Crystal Vital PharmD [address] [place] [address] Pharmacist Internal Medicine 05/16/24 documented as of this encounter
--- OUTSIDE RECORDS SUMMARY | 2024-10-31 16:06 | XMS_ITS | Encounter Summary ---
Author Organization [employer] Address [address] [place] [address] 7 [place] [address] Care Team Providers Care Developmental Mathematics Professor Name Role Phone Nemo Savage KINDERGARTEN INSTRUCTIONAL ASSISTANT Primary Care Provider [phone] Crystal Vital PharmD Unavailable [phone] Encounter Details Date Type Department Care Team (Late st Contact Info) Description 02/25/2024 Orders Only [facility] MEDICINE [address] [place] [address] Yolette Brown NP [address] [place] [address] Social History Tobacco Use Types Packs/Day Years [...] Description 11/14/2024 1:00 PM EDT Medication Management [facility] MEDICINE [address] [place] [address] Crystal Vital, PharmD [address] [place] [address] 12/22/2024 1:00 PM EDT Office Visit [facility] OPTOMETRY [address] [place] [address] Jenny Blanchard, OD [address] [place] [address] 02/03/2025 1:00 PM EDT Office Visit [facility] MEDICINE [address] [place] [address] Janette, Nemo, KINDERGARTEN INSTRUCTIONAL ASSISTANT [address] [place] [address] documented as of this encounter Goals Goal Patient Goal Type Associated Problems Recent Progress Patient-Stated? Author Hemoglobin A1c < 7.5 Result Component 8.5(10/31/2024 1:39 PM EDT) No Crystal Vital, PharmD documented as of this encounter Visit Diagnoses Not on filedocumented in this encounter Additional Health Concerns Assessment Noted Time PHQ-9 Depression Total Score: 9 02/04/20 24 11:53 AM EDT documented as of this encounter Care Teams Developmental Mathematics Professor Relationship Specialty Start Date End Date Nemo SavageBERRY 230 [place] [address] PCP - General Family Medicine 04/14/22 Crystal Vital PharmD [address] [place] [address] Pharmacist Internal Medicine 05/16/24 documented as of this encounter
--- OUTSIDE RECORDS SUMMARY | 2024-10-31 16:06 | XMS_ITS | Encounter Summary ---
Author Organization [employer] Address [address] [place] [address] 7 [place] [address] Care Team Providers Care Cheese Sprayer Name Role Phone Nemo Savage ROLLING DOWN MACHINE OPERATOR Primary Care Provider [phone] Crystal Vital PharmD Unavailable Encounter Details Date Type Department Care Team (Late Contact Info) Description 05/01/2023 Orders Only [facility] MED & PEDS [address] [place] [address] Kirsten Allen LPN Social History Tobacco Use Types Packs/Day Years Used Date Smoking Tobacco: Never Smokeless Tobacco: Never Alcohol Use Standard Drinks/Week Comments Never 0 (1 standard drink = 0.6 oz pur e alcohol) Depression Answer Date Recorded Patient Health Questionnaire-9 Score 21 08/26/2022 Depression Answer Date Recorded Patient Health Questionnaire-2 [...] Encounters Date Type Department Care Team (Late Contact Info) Description 11/14/2024 1:00 PM EDT Medication Management [facility] MEDICINE [address] [place], [place] [phone] Crystal Vital, PharmD [address] [place], [place] [phone] 12/22/2024 1:00 PM EDT Office Visit [facility] OPTOMETRY [address] [place], [place] [phone] Jenny Blanchard OD [address] [place] [address] 02/03/2025 1:00 PM EDT Office Visit [facility] MEDICINE [address] [place] [address] Nemo Savage FNP [address] [place] [address] documented as of this encounter Visit Diagnoses Not on filedocumented in this encounter Additional Health Concerns Assessment Noted Time PHQ-9 Depression Total Score: 21 023 8:54 AM EST documented as of this encounter Care Teams Cheese Sprayer Relationship Specialty Start Date End Date Nemo Savage FNP [address] [place] [address] PCP - General Family Medicine 04/14/22 Crystal Vital, VerenaD [address] [place] [address] Pharmacist Internal Medicine 05/16/24 documented as of this encounter
--- OUTSIDE RECORDS SUMMARY | 2024-10-31 16:07 | XMS_ITS | Encounter Summary ---
Author Organization [employer] Address [address] [place] [address] 7 [place] [address] Care Team Providers Care Carrier Blower Name Role Phone Nemo Savage SCHOOL TRANSPORTATION SUPERVISOR Primary Care Provider [phone] Crystal Vital PharmD Unavailable [phone] Encounter Details Date Type Department Care Team (Late Contact Info) Description 10/27/2022 Orders Only [facility] MED & PEDS [address] [place] [address] Neyda Bray LPN Social History Tobacco Use Types Packs/Day [...] suspected to have Coronavirus/COVID-19? No / Unsure 10/22/2022 8:47 AM EST documented as of this encounter Plan of Treatment Upcoming Encounters Date Type Department Care Team ([facility] Contact Info) Description 11/14/2024 1:00 PM EDT Medication Management [facility] MEDICINE [address] [place] [address] Crystal Vital PharmD [address] [place] [address] 12/22/2024 1:00 PM EDT Office Visit [facility] OPTOMETRY [address] [place] [address] Jenny Blanchard, OD [address] [place] [address] 02/03/2025 1:00 PM EDT Office Visit [facility] MEDICINE [address] [place] [address] Nemo Savage FNP [address] [place] [address] documented as of this encounter Visit Diagnoses Not on filedocumented in this encounter Additional Health Concerns Assessment Noted Time PHQ-9 Depression Total Score: 21 023 8:54 AM EST documented as of this encounter Care Teams Carrier Blower Relationship Specialty Start Date End Date Nemo Savage FNP [address] [place] [address] PCP - General Family Medicine 04/14/22 Crystal Vital, Yesika [address] [place] [address] Pharmacist Internal Medicine 05/16/24 documented as of this encounter
--- OUTSIDE RECORDS SUMMARY | 2024-10-31 16:07 | XMS_ITS | Clinical Summary ---
Author Organization 175 [facility] Address [address] [place] [address] Phone Care Team Providers Care Lunchroom Mother Name Role Phone [facility] Primary Care Provider [phone] Allergies No known active allergies Medications albuterol 2.5 mg /3 mL (0.083 %) nebulizer solution Take 3 mL (2.5 mg total) by nebulization every 6 (six) hours if needed for wheezing. Active aspirin (Adult Low Dose Aspirin) 81 mg EC tablet Take 1 tablet (81 mg total) by mouth 1 (one) time each day. Active amLODIPine (NORVASC) 5 mg tablet Take 1 tablet (5 mg total) by mouth 1 (one) time each day. Active atorvastatin (LIPITOR) 80 mg tablet Take 1 tablet (80 mg total) by mouth at bedtime. Active buPROPion XL (WELLBUTRIN XL) 150 mg 24 hr tablet Take 1 tablet (150 mg total) by mouth 1 (one) time each day. Do not crush, chew, or split. Active polycarbophil (FIBERCON) 625 mg tablet Take 1 tablet (625 mg total) by mouth 1 (one) time each day. Active cholecalciferol (VITAMIN D-3) 50 mcg (2,000 unit) tablet Take 1 tablet (2,000 Units total) by mouth 1 (one) time each day. Active ciclopirox (PENLAC) 8 % solution Apply topically at bedtime. Apply over nail and surrounding skin. Apply daily over previous coat. After seven (7) days, may remove with alcohol and continue cycle. Active clotrimazole (LOTRIMIN) 1 % cream Apply topically 2 (two) times a day. Active glucose 4 gram chewable tablet Chew 4 tablets (16 g total) if needed for low blood sugar. Active ezetimibe (ZETIA) 10 mg tablet Take 1 tablet (10 mg total) by mouth 1 (one) time each day. Active fluticasone furoate (Arnuity Ellipta) 100 mcg/actuation blister with device inhaler Inhale 1 puff by mouth 1 (one) time each day. Active furosemide (LASIX) 40 mg tablet Take 1 tablet (40 mg total) by mouth 1 (one) time each day. Active gabapentin (NEURONTIN) 300 mg capsule Take 1 capsule (300 mg total) by mouth 3 (three) times a day. Active hydrocortisone 1 % topical cream Apply topically 2 (two) times a day. Active insulin glargine (LANTUS) 100 unit/mL injection Inject 34 Units under the skin at bedtime. Active insulin lispro 100 unit/mL injection Inject under the skin 3 (three) times a day before meals. -Administer within 15 minutes of a meal Active isosorbide mononitrate (IMDUR) 30 mg 24 hr tablet Take 1 tablet (30 mg total) by mouth 1 (one) time each day. Do not crush or chew. Active levalbuterol (XOPENEX HFA) 45 mcg/actuation inhaler Inhale 1-2 puffs by mouth every 6 (six) hours if needed for wheezing. Active levothyroxine (SYNTHROID, LEVOTHROID) 200 mcg tablet Take 1 tablet (200 mcg total) by mouth 1 (one) time each day before breakfast. Active metFORMIN (GLUCOPHAGE) 1,000 mg tablet Take 1 tablet (1,000 mg total) by mouth 2 (two) times a day with meals. Active montelukast (SINGULAIR) 10 mg tablet Take 1 tablet (10 mg total) by mouth at bedtime. Active ondansetron (ZOFRAN) 4 mg tablet Take 1 tablet (4 mg total) by mouth every 8 (eight) hours if needed for nausea or vomiting. Active oxyBUTYnin XL (DITROPAN-XL) 10 mg 24 hr tablet Take 1 tablet (10 mg total) by mouth 1 (one) time each day. Do not crush, chew, or split. Active pantoprazole (PROTONIX) 40 mg EC tablet Take 1 tablet (40 mg total) by mouth 2 (two) times a day. Do not crush, chew, or split. Active senna (SENOKOT) 8.6 mg tablet Take 1 tablet (8.6 mg total) by mouth 1 (one) time each day. Active sertraline (ZOLOFT) 100 mg tablet Take 2 tablets (200 mg total) by mouth 1 (one) time each day. Active tirzepatide (MOUNJARO) 5 mg/0.5 mL injection Inject 0.5 mL (5 mg total) under the skin every 7 (seven) days. Active topiramate (TOPAMAX) 25 mg tablet Take 1 tablet (25 mg total) by mouth 1 (one) time each day. Active traZODone (DESYREL) 50 mg tablet Take 1 tablet (50 mg total) by mouth at bedtime. Active Social History Tobacco Use Types Packs/Day Years Used Date Smoking Tobacco: Never Assessed Comments Unknown Sex and Gender Information Value Date Recorded Sex Assigned at Not on file Legal Sex Female 2:25 AM EST Gender Identity Not on file Sexual Orientation Not on file Plan of Treatment Upcoming Encounters Date Type Department Care Team (Late st Contact Info) Description 11/15/2024 10:[address] [facility] [address] [place] [id number] Noman Curtis DO 175 [facility] [address] [place] [address] Health Maintenance Due Date Last Done Comments Breast Cancer Screening 1964 DTaP,Tdap,and Td Vaccines (1 - Tdap) 1983 Cervical Cancer Screening: P ap Smear 1985 Pneumococcal Vaccine: 50+ Ye ars (1 of 1 - PCV) 2014 Zoster Vaccines (1 of 2) 2014 Colorectal Cancer Screening: Colonoscopy 07/20/2022 Depression Screening 07/20/2022 HIV Screening 07/20/2022 Hepatitis C Screening 07/20/2022 Social Influencers of Health Screening 07/20/2022 COVID-19 Vaccine ( - 2023-2 5 season) 2024 Influenza Vaccine (#1) 2024 RSV Immunization Patients 60 + Years Old (1 - 1-dose 75+ series) 2039 HIB Vaccines Aged Out No longer eligi ble based on patient's age to complete this topic HPV Vaccines Aged Out No longer eligi ble based on patient's age to complete this topic Hepatitis A Vaccines Aged Out No long er eligible based on patient's age to complete this topic Hepatitis B Vaccines Aged Out No long er eligible based on patient's age to complete this topic IPV Vaccines Aged Out No longer eligi ble based on patient's age to complete this topic MMR Vaccines Aged Out No longer eligi ble based on patient's age to complete this topic Meningococcal ACWY Vaccine Aged Out N o longer eligible based on patient's age to complete this topic Meningococcal B Vacine Aged Out No lo nger eligible based on patient's age to complete this topic Pneumococcal Vaccine: Pediat rics (0 to 5 Years) and At-Risk Patients (6 to 64 Years) Aged Out No longer eligible b ased on patient's age to complete this topic RSV Immunization Patients Un dixie 20 months Aged Out No longer eligible b ased on patient's age to complete this topic Varicella Vaccines Aged Out No longer eligible based on patient's age to complete this topic Insurance MEDICAID - [place] Care Teams Lunchroom Mother Relationship Specialty Start Date End Date [facility] [address] [place] [phone] PCP - General Family Medicine 06/27/24
--- OUTSIDE RECORDS SUMMARY | 2024-10-31 16:07 | XMS_ITS | Encounter Summary ---
Author Organization [employer] Address [address] [facility] [address] [place] [address] Care Team Providers Care Dip Guider Stoves Name Role Phone Nemo Savage COMPONENT INSPECTOR Primary Care Provider [phone] Crystal Vital PharmD Unavailable [phone] Encounter Details Date Type Department Care Team (Latest Contact Info) Description 10/31/2024 Travel Social History Tobacco Use Types Packs/Day Years Used Date Smoking Tobacco: Former Cigarettes Smokeless Tobacco: Never Alcohol Use Standard Drinks/Week Comments Never 0 (1 standard drink = 0.6 oz pur e alcohol) Depression Answer Date Recorded Patient Health Questionnaire-9 Score 8 10/31/2024 Patient Health Questionnaire-9 Score 8 10/31/2024 Last PHQ-9: Questionnaire Data Not on file 0 10/31/2024 Housing Stability Answer Date Recorded What is [...] Date Recorded Patient Health Questionnaire-2 Score 2 10/31/2024 Comments Unknown Sex and Gender Information Value [...] Description 11/14/2024 1:00 PM EDT Medication Management [facility] MEDICINE [address] [place] [phone] Crystal Vital PharmD [address] [place] [address] 12/22/2024 1:00 PM EDT Office Visit [facility] OPTOMETRY [address] [place] [address] Jenny Blanchard, OD [address] [place] [address] 02/03/2025 1:00 PM EDT Office Visit [facility] MEDICINE [address] [place] [address] Nemo Savage FNP [address] [place] [address] documented as of this encounter Goals Goal Patient Goal Type Associated Problems Recent Progress Patient-Stated? Author Hemoglobin A1c < 7.5 Result Component 8.5(10/31/2024 1:39 PM EDT) No Crystal Vital, PharmD documented as of this encounter Visit Diagnoses Not on filedocumented in this encounter Additional Health Concerns Assessment Noted Time PHQ-9 Depression Total Score: 8 11/01/19 25 1:04 PM EDT documented as of this encounter Care Teams Dip Guider Stoves Relationship Specialty Start Date End Date Nemo Savage FNP [address] [place] [id number] PCP - General Family Medicine 04/14/22 Crystal Vital, VerenaD [address] [place] [address] Pharmacist Internal Medicine 05/16/24 documented as of this encounter
--- OUTSIDE RECORDS SUMMARY | 2024-10-31 16:07 | XMS_ITS | Encounter Summary ---
Author Organization [employer] Address [address] [place] [address] [address] [place] [address] Care Team Providers Care Jacket Preparer Name Role Phone Man [facility] Primary Care Provider [phone] Crystal Vital PharmD Unavailable [phone] Reason for Visit * Reason Comments Med Refill Encounter Details Date Type Department Care Team (Late st Contact Info) Description 10/22/2024 Refill [facility] MEDICINE [address] [place] [address] [facility] [address] [place] [address] Dry skin dermatitis Social History Tobacco Use Types Packs/Day Years Used Date Smoking Tobacco: Former Cigarettes Smokeless Tobacco: Never Alcohol Use Standard Drinks/Week Comments Never 0 (1 standard drink = 0.6 oz pur e alcohol) Depression Answer Date Recorded Patient Health Questionnaire-9 Score 0 08/01/2024 Patient Health Questionnaire-9 Score 0 08/01/2024 Last PHQ-9: Questionnaire Data Not on file 1 10/02/2023 Housing Stability Answer Date Recorded What is [...] Answer Date Recorded Patient Health Questionnaire-2 Score 0 08/01/2024 Comments Unknown Sex and Gender Information Value [...] Description 11/14/2024 1:00 PM EDT Medication Management [facility] MEDICINE [address] [place] [address] Crystal Vital, PharmD [address] [place] [address] 12/22/2024 1:00 PM EDT Office Visit [facility] OPTOMETRY [address] [place] [address] Jenny Blanchard, CARLINE [address] [place] [address] 02/03/2025 1:00 PM EDT Office Visit [facility] MEDICINE [address] [place] [address] Man, Nemo, BOBBIN DOFFER [address] [place] [address] documented as of this encounter Goals Goal Patient Goal Type Associated Problems Recent Progress Patient-Stated? Author Hemoglobin A1c < 7.5 Result Component 8.5(10/31/2024 1:39 PM EDT) No Crystal Vital, PharmD documented as of this encounter Visit Diagnoses Diagnosis Dry skin dermatitis Contact dermatitis and other eczema due to other specified agent documented in this encounter Additional Health Concerns Assessment Noted Time PHQ-9 Depression Total Score: 0 08/01/20 24 2:04 PM EST documented as of this encounter Care Teams Jacket Preparer Relationship Specialty Start Date End Date Nemo SavageBERRY [address] [place] [address] PCP - General Family Medicine 04/14/22 Crystal Vital, Yesika [address] [place] [address] Pharmacist Internal Medicine 05/16/24 documented as of this encounter
--- OUTSIDE RECORDS SUMMARY | 2024-10-31 16:07 | XMS_ITS | Encounter Summary ---
Author Organization [employer] Address [address] [place] [address] [address] [place] [address] Care Team Providers Care Organic Extractions Technician Name Role Phone [facility] Primary Care Provider [phone] Crystal Vital PharmD Unavailable [phone] Reason for Visit * Reason Comments Med Refill Encounter Details Date Type Department Care Team (Late st Contact Info) Description 10/16/2024 Refill [facility] [address] [place] [address] [facility] [address] [place] [address] Fibromyalgia Social History Tobacco Use Types Packs/Day Years [...] 1:00 PM EDT Medication Management [facility] MEDICINE [address] [place] [address] Crystal Vital, PharmD [address] [place] [address] 12/22/2024 1:00 PM EDT Office Visit [facility] OPTOMETRY [address] [place] [address] Jenny Blanchard, CARLINE [address] [place] [address] 02/03/2025 1:00 PM EDT Office Visit [facility] MEDICINE [address] [place] [address] [place], Nemo, OPTIMIZATION SPECIALIST [address] [place] [address] documented as of this encounter Goals Goal Patient Goal Type Associated Problems Recent Progress Patient-Stated? Author Hemoglobin A1c < 7.5 Result Component 8.5(10/31/2024 1:39 PM EDT) No Crystal Vital, PharmD documented as of this encounter Visit Diagnoses Diagnosis Fibromyalgia Unspecified myalgia and myositis documented in this encounter Additional Health Concerns Assessment Noted Time PHQ-9 Depression Total Score: 0 08/01/20 24 2:04 PM EST documented as of this encounter Care Teams Organic Extractions Technician Relationship Specialty Start Date End Date Nemo Savage FNP [address] [place] [address] PCP - General Family Medicine 04/14/22 Crystal Vital, Yesika [address] [place] [address] Pharmacist Internal Medicine 05/16/24 documented as of this encounter
--- OUTSIDE RECORDS SUMMARY | 2024-10-31 16:07 | XMS_ITS | Encounter Summary ---
Author Organization [employer] Address [address] [place] [address] [address] [place] [address] Care Team Providers Care Buncher Machine Name Role Phone [facility] Primary Care Provider [phone] Crystal Vital PharmD Unavailable [phone] Reason for Visit * Reason Comments Med Refill Encounter Details Date Type Department Care Team (Late st Contact Info) Description 03/22/2024 Refill [facility] MEDICINE [address] [place] [address] [facility] [address] [place] [address] Type 2 diabetes mellitus with hyperglycemia, with long-term current use of insulin ([facility]) Social History Tobacco Use Types Packs/Day Years [...] Description 11/14/2024 1:00 PM EDT Medication Management [facility] MEDICINE [address] [place] [address] Crystal Vital, PharmD [address] [place] [address] 12/22/2024 1:00 PM EDT Office Visit [facility] OPTOMETRY [address] [place] [address] Jenny Blanchard OD [address] [place] [address] 02/03/2025 1:00 PM EDT Office Visit [facility] MEDICINE [address] [place] [address] Nemo Savage FNP [address] [place] [address] documented as of this encounter Goals Goal Patient Goal Type Associated Problems Recent Progress Patient-Stated? Author Hemoglobin A1c < 7.5 Result Component 8.5(10/31/2024 1:39 PM EDT) No Crystal Vital, PharmD documented as of this encounter Visit Diagnoses Diagnosis Type 2 diabetes mellitus with hyperglycemia, with long-term current use of insulin ([facility]) documented in this encounter Additional Health Concerns Assessment Noted Time PHQ-9 Depression Total Score: 9 02/04/20 24 11:53 AM EDT documented as of this encounter Care Teams Buncher Machine Relationship Specialty Start Date End Date Nemo Savage FNP [address] [place] [address] PCP - General Family Medicine 04/14/22 Crystal Vital, PharmD [address] [place] [address] Pharmacist Internal Medicine 05/16/24 documented as of this encounter
--- OUTSIDE RECORDS SUMMARY | 2024-10-31 16:07 | XMS_ITS | Encounter Summary ---
Author Organization [employer] Address [address] [place] [address] 7 [place] [address] Care Team Providers Care Rail Car Repairer Name Role Phone [facility] Primary Care Provider [phone] Crystal Vital PharmD Unavailable [phone] Reason for Visit * Reason Comments Pre-visit Planning (Unable to reach for PVP screening, LVM) Encounter Details Date Type Department Care Team ([facility] Contact Info) Description 10/24/2024 Patient Outreach [facility] MEDICINE [address] [place] [address] [facility] [address] [place] [address] Pre-visit Planning ((Unable to reach for PVP screening, LVM)) Social History Tobacco Use Types Packs/Day Years [...] AM EDT documented as of this encounter Progress Notes * Cristy Hope - 10/24/2024 9:36 AM EDT CC Cristy. Placed outbound call to patient to complete pre-visit planning. No answer at this time. Patient name and were not confirmed. CC left voicemail requesting return call. Direct contact information provided. documented in this encounter Plan of Treatment Upcoming Encounters Date Type Department Care Team ([facility] st Contact Info) Description 11/14/2024 1:00 PM EDT Medication Management [facility] MEDICINE [address] [place] [address] Crystal Vital, PharmD [address] [place] [address] 12/22/2024 1:00 PM EDT Office Visit [facility] OPTOMETRY [address] [place] [address] Jenny Blanchard, OD [address] [place] [address] 02/03/2025 1:00 PM EDT Office Visit [facility] MEDICINE [address] [place] [address] Nemo Savage FNP [address] [place] [address] documented as of this encounter Goals Goal Patient Goal Type Associated Problems Recent Progress Patient-Stated? Author Hemoglobin A1c < 7.5 Result Component 8.5(10/31/2024 1:39 PM EDT) No Crystal Vital, PharmD documented as of this encounter Visit Diagnoses Not on filedocumented in this encounter Additional Health Concerns Assessment Noted Time PHQ-9 Depression Total Score: 0 08/01/20 2:04 PM EST documented as of this encounter Care Teams Rail Car Repairer Relationship Specialty Start Date End Date Nemo Savage FNP [address] [place] [address] PCP - General Family Medicine 04/14/22 Crystal Vital, PharmD [address] [place] [address] Pharmacist Internal Medicine 05/16/24 documented as of this encounter
--- OUTSIDE RECORDS SUMMARY | 2024-10-31 16:07 | XMS_ITS | Encounter Summary ---
Author Organization [employer] Address [address] [place] [address] 7 [place] [address] Care Team Providers Care Ccie Name Role Phone Janette [facility] Primary Care Provider [phone] Crystal Vital PharmD Unavailable [phone] Reason for Visit * Reason Comments Follow-up Encounter Details Date Type Department Care Team (Latest Contact Info) Description 10/31/2024 1:00 PM EDT Office Visit [facility] MEDICINE [address] [place], [place] [id number] [place], [facility] [address] [place] [address] 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); Type 2 diabetes mellitus with hyperglycemia, with long-term current use of insulin ([facility]); Productive cough; Rash Social History Tobacco Use Types Packs/Day Years Used Date Smoking Tobacco: Former Cigarettes Smokeless Tobacco: Never Tobacco Cessation:Counseling Given: Not Answered Alcohol Use Standard Drinks/Week Comments Never 0 [...] the past 12 months, has t he [employer], gas, oil or water [employer] threatened to shut off services in your [...] AM EDT documented as of this encounter Last Filed Vital Signs Vital Sign Reading Time Taken Comments Blood Pressure 138/72 10/31/2024 1:24 PM EDT Pulse 77 10/31/2024 1:03 PM EDT Temperature 36.6 ??C (97.8 ??F) 10/31/2024 1:03 PM ED T Respiratory Rate 20 10/31/2024 1:03 PM EDT Oxygen Saturation - - Inhaled Oxygen Concentration - - Weight 105 kg (231 lb 3.2 oz) 10/31/2024 1:03 PM EDT Height 167.6 cm (5' 6 ) 10/31/2024 1:03 PM EDT Body Mass Index 37.32 10/31/2024 1:03 PM EDT documented in this encounter Plan of Treatment Upcoming Encounters Date Type Department Care Team (Late st Contact Info) Description 11/14/2024 1:00 PM EDT Medication Management [facility] MEDIC[facility] [address] [place] [address] Crystal Vital, PharmD [address] [place] [address] 12/22/2024 1:00 PM EDT Office Visit [facility] OPTOMETRY [address] [place] [address] Jenny Blanchard, OD [address] [place] [address] 02/03/2025 1:00 PM EDT Office Visit [facility] MEDICINE [address] [place] [address] [place], [place], [facility] [address] [place] [address] Scheduled Orders Name Type Priority Associated Diagnoses Orde r Schedule TSH Lab Routine 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 Expected: 10/31/2024 (Approximate), Expires: 10/31/2025 documented as of this encounter Goals Goal Patient Goal Type Associated Problems Recent Progress Patient-Stated? Author Hemoglobin A1c < 7.5 Result Component 8.5(10/31/2024 1:39 PM EDT) No Crystal Vital, PharmD documented as of this encounter Procedures Procedure Name Priority Date/Time Associated Diagnosis Comments XR CHEST 2 VIEWS Routine 10/31/2024 1:48 PM EDT Productive cough POCT GLYCATED HEMOGLOBIN, TOTAL Routine 10/31/2024 1:39 PM EDT Type 2 diabetes mellitus with hyperglycemia, with long-term current use of insulin ([facility]) POCT GLUCOSE Routine 10/31/2024 1:39 PM EDT Type 2 diabetes mellitus with hyperglycemia, with long-term current use of insulin ([facility]) documented in this encounter Results * XR Chest 2 Views (10/31/2024 1:48 PM EDT) Anatomical Region Laterality Modality Chest Radiographic Daylin ging 10/31/2024 1:48 PM EDT Narrative 10/31/2024 2:20 PM EDT ?[facility] [facility] ?[address] ?[place] [address] ?XRay Report ? Signed ? Patient: Carrasquillo Tex,Vicky ?MR#: [id number] ?? [id number] ? : 1965 ?Acct:[id number] ? Age/Sex: 59 / F ?ADM Date: 10/31/24 ? Loc: HO.HHCX ? Attending Dr: Nemo Savage [facility]ER ? Ordering Physician: Nemo Savage [facility] ?? Date of Service: 10/31/24 ?? Procedure(s): XR chest 2V ?? Accession Number(s): [id number] ? cc: Nemo Savage [facility]ER ? EXAMINATION: ??XR CHEST 2 VIEWS ? HISTORY: 59 y.o F with asthma and chills, productive cough, r/o ?? consolidation ? COMPARISON: Comparison is made with the prior examination dated ?? 01/07/2024. ? FINDINGS: ??PA and lateral views of the chest are submitted. The lungs ?? are expanded and clear. ??There is no pleural effusion, pneumothorax, or ?? pulmonary vascular congestion. ??The heart is normal in size. ??The bones ?? are intact. ? XR/XR chest 2V ?? IMPRESSION: ?? No acute cardiopulmonary abnormality. ? Electronically signed by: ??Shaggy Chapman MD ??10/31/2024 02:18 PM EDT ? Dictated By: ?Shaggy Chapman MD ? Signed By: ?<Electronically signed by Shaggy Chapman MD in OV> ?10/31/24 1418 ? DD/ 1348 ? TD/TT: 10/31/24 1400 ? Equipment Operating Engineer: ? Procedure Note Angie Zamarripa - 10/31/[address] [address] XRay Report Signed Patient: Vicky Stacy#: M [id number] : 1965Acct:[id number] Age/Sex: 59 / FADM Date: 10/31/24 Loc: HO.HHCX Attending Dr: Nemo Savage [facility]ER Ordering Physician: Nemo Savage Date of Service: 10/31/24 Procedure(s): XR chest 2V Accession Number(s): [id number] cc: [facility] EXAMINATION: XR CHEST 2 VIEWS HISTORY: 59 y.o F with asthma and chills, productive cough, r/o consolidation COMPARISON: Comparison is made with the prior examination dated 01/07/2024. FINDINGS: PA and lateral views of the chest are submitted. The lungs are expanded and clear. There is no pleural effusion, pneumothorax, or pulmonary vascular congestion. The heart is normal in size. The bones are intact. XR/XR chest 2V IMPRESSION: No acute cardiopulmonary abnormality. Electronically signed by: Shaggy Chapman MD 10/31/2024 02:18 PM EDT RP Dictated By: Shaggy Chapman MD Signed By: <Electronically signed by Shaggy Chapman MD in OV> 10/31/24 1418 DD/ 1348 TD/TT: 10/31/24 1400 Equipment Operating Engineer: Result [facility] IMG XR PROCEDURES Final Resul t * (ABNORMAL) POCT Glucose (10/31/2024 1:39 PM EDT) Glucose Blood, POC 345(A) 60 - 200 mg/dL Blood Capillary blood specimen / Unknown 10/31/2024 1:39 PM EDT Result [facility] POINT OF CARE TEST ENTER/EDIT ORDERABLES Final Result * (ABNORMAL) POCT HGB A1C (10/31/2024 1:39 PM EDT) Hemoglobin A1C 8.5(A) 4.0 - 6.0 % QC Media Lot # [id number] Blood 10/31/2024 1:39 PM EDT Result [facility] POINT OF CARE TEST ENTER/EDIT ORDERABLES Final Result documented in this encounter Visit Diagnoses Diagnosis 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- Primary Type 2 diabetes mellitus with hyperglycemia, with long-term current use of insulin ([facility]) Productive cough Cough Rash Rash and other nonspecific skin eruption documented in this encounter Additional Health Concerns Assessment Noted Time PHQ-9 Depression Total Score: 8 11/01/19 25 1:04 PM EDT documented as of this encounter Care Teams Ccie Relationship Specialty Start Date End Date Janette BERRY [place] [address] [place] [address] PCP - General Family Medicine 04/14/22 Crystal Vital, Yesika [address] [place] [address] Pharmacist Internal Medicine 05/16/24 documented as of this encounter
--- OUTSIDE RECORDS SUMMARY | 2024-10-31 16:07 | XMS_ITS | Clinical Summary ---
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 traZODone (Desyrel) 50 MG tablet Take 1 tablet by mouth at bed time. Active ciclopirox (Penlac) 8 % solution Apply topically daily. 021 Active buPROPion XL (Wellbutrin XL) 150 MG 24 hr tablet Take 1 tablet by mouth at bed time. Active amLODIPine (Norvasc) 5 MG tablet Take 1 tablet by mouth at bed time. Active glucose 4 g chewable tabletIndicatio ns:Type 2 diabetes mellitus with hyperglycemia, with long-term current use of insulin ([facility]) Chew 4 tablets (16 g) if needed for low blood sugar. 50 tablet 12 022 Active levalbuterol (Xopenex) 45 MCG/ACT inhaler INHALE 1-2 PUFFS BY MOUTH EVERY 6 HOURS NEEDED 023 Active isosorbide mononitrate ER (Imdur) 30 MG 24 hr tablet Take 30 mg by mouth in the morning. 023 Active oxybutynin XL (Ditropan-XL) 10 MG 24 hr tablet Take 10 mg by mouth in the morning. Active Blood Glucose Monitoring Suppl (FreeStyle Lite) deviceIndicatio ns:Type 2 diabetes mellitus with hyperglycemia, with long-term current use of insulin ([facility]) Inject 1 each under the skin 4 times daily. Test daily before all meals/snacks and once before bedtime. 1 each Active Hydrocortisone, Perianal, 1 % creamIndication s:Rash APPLY TO THE AFFECTED AREA(S) RECTALLY TWICE DAILY FOR 7 DAYS 28.4 g 2 Active glucose blood (FreeStyle Precision Noble Test) test stripIndication s:Type 2 diabetes mellitus with hyperglycemia, with long-term current use of insulin ([facility]) Use with freestyle josé reader to monitor blood glucose as needed 50 each 2024 Active albuterol (2.5 MG/3ML) 0.083% nebulizer solution Take 3 mL by nebulization every 6 (six) hours. 75 mL Active Arnuity Ellipta 100 MCG/ACT inhaler INHALE 1 PUFF BY MOUTH EVERY DAY. RINSE MOUTH AND THROAT AFTER USING Active furosemide (Lasix) 40 MG tablet Take 40 mg by mouth in the morning. Active ondansetron (Zofran) 4 MG tablet TAKE 1 TABLET BY MOUTH EVERY 8 HOURS NEEDED FOR NAUSEA AND VOMITING Active pen needle 32G x 4 mm miscIndications :Type 2 diabetes mellitus with hyperglycemia, with long-term current use of insulin ([facility]) Use as instructed with insulin use four times daily 100 each 024 2024 Active sertraline (Zoloft) 100 MG tablet Take 2 tablets by mouth once daily Active Alcohol Swabs (Alcohol Prep) 70 % pads USE DIRECTED 100 each Active ezetimibe (Zetia) 10 MG tabletIndicatio ns:Hypercholest erolemia TAKE 1 TABLET BY MOUTH EVERY MORNING 90 tablet 2 Active Aspirin Low Dose 81 MG EC tablet TAKE 1 TABLET BY MOUTH EVERY MORNING 90 tablet 2 Active montelukast (Singulair) 10 MG tabletIndicatio ns:Asthma, unspecified asthma severity, unspecified whether complicated, unspecified whether persistent TAKE 1 TABLET BY MOUTH EVERY EVENING 90 tablet 2 024 Active senna (Senokot) 8.6 MG tabletIndicatio ns:Chronic idiopathic constipation TAKE 1 TABLET BY MOUTH AT BEDTIME 90 tablet 3 024 Active TRUEplus Lancets 33G miscIndications :Type 2 diabetes mellitus with hyperglycemia, with long-term current use of insulin ([facility]) TEST BLOOD SUGAR FOUR TIMES DAILY 100 each 11 024 Active diphenhydrAMINE (BENADryl) 25 MG tabletIndicatio ns:Rash,Allergi c reaction to fruit Take 1 tablet (25 mg) by mouth every 6 (six) hours if needed for itching. 30 tablet 024 Active hydrocortisone 1 % ointmentIndicat ions:Rash,Aller gic reaction to fruit Apply topically 2 times daily. 28 g 024 Active insulin glargine (Lantus SoloStar) 100 UNIT/ML penIndications: Type 2 diabetes mellitus with hyperglycemia, with long-term current use of insulin ([facility]) Inject subcutaneously 40 units once daily 15 mL 3 024 Active glucose blood (FREESTYLE LITE) test stripIndication s:Type 2 diabetes mellitus with hyperglycemia, with long-term current use of insulin ([facility]) TEST BLOOD SUGAR FOUR TIMES DAILY 100 strip 11 Active Continuous Glucose Sensor (FreeStyle José 2 Sensor) miscIndications :Type 2 diabetes mellitus with hyperglycemia, with long-term current use of insulin ([facility]) USE DIRECTED TO TEST BLOOD SUGAR. CHANGE EVERY 14 DAYS 2 each 5 024 Active EPINEPHrine (Epipen) 0.3 MG/0.3ML injection syringeIndicati ons:Acute allergic reaction, initial encounter Inject 0.3 mL (0.3 mg) as directed 1 (one) time if needed for anaphylaxis. Inject into upper leg. Call 911 after use. 1 each 3 024 2024 Active cetirizine (ZyrTEC) 10 MG tabletIndicatio ns:Acute allergic reaction, initial encounter Take 1 tablet (10 mg) by mouth Once per day. 30 tablet 5 024 2024 Active D3 Super Strength 50 MCG (1999 UT) capsuleIndicati ons:Vitamin D deficiency TAKE 1 CAPSULE BY MOUTH EVERY MORNING 90 capsule 3 024 Active pantoprazole (ProtoNix) 40 MG EC tabletIndicatio ns:Dyspepsia TAKE 1 TABLET BY MOUTH TWICE DAILY IN THE MORNING AND IN THE EVENING 180 tablet 3 024 Active metFORMIN (Glucophage) 1000 MG tabletIndicatio ns:Type 2 diabetes mellitus with hyperglycemia, with long-term current use of insulin (CMS/HCC) TAKE 1 TABLET BY MOUTH TWICE DAILY IN THE MORNING AND IN THE EVENING 180 tablet 1 024 Active levothyroxine (Synthroid, Levoxyl) 200 MCG tabletIndicatio ns:Hypothyroidi 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's thyroiditis TAKE 1 TABLET BY MOUTH EVERY MORNING BEFORE BREAKFAST 90 tablet 1 024 Active atorvastatin (Lipitor) 80 MG tablet TAKE 1 TABLET BY MOUTH EVERY MORNING 90 tablet 3 024 Active insulin lispro (HumaLOG) 100 UNIT/ML injectionIndica tions:Type 2 diabetes mellitus with hyperglycemia, with long-term current use of insulin (CMS/HCC) INJECT THREE TIMES DAILY PER SLIDING SCALE (IF BLOOD SUGAR IS 141-180: 8 UNITS, 181-220: 10 UNITS, 221-260: 12 UNITS, 261-300: 14 UNITS, >300: 16 UNITS) 15 mL 3 025 Active topiramate (Topamax) 25 MG tabletIndicatio ns:Migraine without status migrainosus, not intractable, unspecified migraine type TAKE 1 TABLET BY MOUTH AT BEDTIME 30 tablet 1 025 Active polycarbophil (Fiber-Lax) 625 MG tabletIndicatio ns:Chronic idiopathic constipation TAKE 1 TABLET BY MOUTH EVERY MORNING WITH A FULL GLASS OF WATER 90 tablet 3 025 Active gabapentin (Neurontin) 300 MG capsuleIndicati ons:Fibromyalgi a TAKE 1 CAPSULE BY MOUTH THREE TIMES DAILY IN THE MORNING, EVENING, AND BEDTIME 90 capsule 1 025 Active triamcinolone (Kenalog) 0.025 % creamIndication s:Dry skin dermatitis MIX WITH 16 OUNCES CERAVE CREAM DIRECTED AND APPLY TOPICALLY TWICE DAILY 80 g 1 025 Active predniSONE (Deltasone) 20 MG tabletIndicatio ns:Productive cough Take 1 tablet (20 mg) by mouth Once per day for 5 days. 5 tablet 025 2024 Active Tirzepatide (Mounjaro) 10 MG/0.5ML solution auto-injectorIn dications:Type 2 diabetes mellitus with hyperglycemia, with long-term current use of insulin (CMS/HCC) Inject 10 mg under the skin 1 (one) time per week. 2 mL 3 025 Active triamcinolone (Kenalog) 0.1 % ointmentIndicat ions:Rash Apply topically 2 times daily. For 2 weeks 30 g 1 025 Active Tirzepatide (Mounjaro) 7.5 MG/0.5ML solution auto-injectorIn dications:Type 2 diabetes mellitus with hyperglycemia, with long-term current use of insulin (CMS/HCC) Inject 7.5 mg under the skin 1 (one) time per week. 2 mL 3 024 2024 Discontinued triamcinolone (Kenalog) 0.025 % creamIndication s:Dry skin dermatitis Apply topically 2 times daily. Mix entire tube with 16oz cera ve jar as instructed. Apply from neck down once daily 80 g 1 024 2024 Discontinued gabapentin (Neurontin) 300 MG capsuleIndicati ons:Fibromyalgi a TAKE 1 CAPSULE BY MOUTH THREE TIMES DAILY IN THE MORNING, EVENING, AND BEDTIME 90 capsule 1 025 2024 Discontinued Active Problems Problem Noted Date Diagnosed Date Rash 07/18/2024 Assessment & Plan (07/18/2024 2:34 PM EST): ED precautions reviewed benadryl+ prednisone Hydrocortisone for skink itchiness apply on affected area BID no more than 2 weeks Allergic reaction to fruit 07/18/2024 Bilateral shoulder pain 02/04/2024 Postural dizziness 08/21/2023 Overview (08/21/2023): 1. Followed by Dr. Love at [facility] for similar sx. Last visit 02/2023 with unremarkable echocardiogram and LE venous duplex ultrasound with mild reflux otherwise unremarkable. Plan for stress test with follow up after. EKG with sinus bradycardia Orthostatic vital signs negative although HR persistently bradycardic Migraine without status migrainosus, not intract able 01/27/2023 Overview (04/28/2023): ?? Topiramate 25mg daily ?? Previously followed by [facility] neurology, lost to follow up Assessment & Plan (01/27/2023 12:56 PM EDT): ?? RESTART topiramate 25mg. Reviewed administration, risks, side effects ?? Increase hydration Contact HC if sx worsen or are associated with fever, weakness, position changes, sneezing/coughing/exercise Chronic idiopathic constipation 01/27/2023 Assessment & Plan (01/27/2023 12:57 PM EDT): ?? Senna refilled Asthma 09/04/2022 Overview (01/27/2023): ?? Flovent b.i.d ?? Levalbuterol PRN ?? Singulair ?? Saw pulmonology for persistent dyspnea. PFT's negative for COPD, mild asthma. Discussed stepping down symbicort therapy per last visit note 10/2022 ?? Referred to LDLCT screening d/t smoking hx Assessment & Plan (01/27/2023 10:11 AM EDT): ?? Continue current regimen ?? Follow up as scheduled with pulmonology Healthcare maintenance 07/24/2022 Overview (08/21/2023): Pap: Followed by ?Tonya. Hx of abnormal pap, reports normal pap earlier in 2021. Records not in chart, will request Mammogram:10/2022 BIRADS-3, likely benign.repeat in an additional 6 months-has upcoming appointment BMD: Routine age 64 CRC: Referral to GI for screening 08/2022 Immunizations: Declines all vaccines today Vision: 03/2023- [facility] HIV: Neg 2021 Hepatitis:Neg 2016 Assessment & Plan (01/27/2023 10:13 AM EDT): ?? Will requests mammogram resuslts ?? Pt provided with GI phone number to call and request initial visit Assessment & Plan (07/24/2022 10:51 AM EST): Pap: Followed by Olaf Baez. Hx of abnormal pap, reports normal pap earlier in 2021. Records not in chart, will request Mammogram: 04/2022 BIRADS-3, likely benign, repeat dx mammo due 10/2022 BMD: Routine age 64 CRC: Upcoming appt with GI for initial colposcopy, will f/u regarding colonoscopy status, sti has not heard Immunizations: Accepts flu, needs covid booster, declines shingles today Vision: 10/2021 [facility] Dental: HIV: Neg 2021 Hepatitis:Neg 2016 Coronary artery disease invo lving [place] heart without angina pectoris 07/22/2022 Overview (02/04/2024): Followed by cardiology Hypercholesterolemia 02/09/2019 Overview (09/05/2022): ?? Atorvastatin 80mg Assessment & Plan (04/29/2023 10:38 AM EDT): ?? Repeat fasting lipid panel today ?? Calculate ASCVD risk pending results Obstructive sleep apnea syndrome 2018 Fibromyalgia 04/29/2018 Overview (09/05/2022): ?? Gabapentin 300mg t.i.d Depression 09/24/2017 Overview (01/27/2023): ?? Well connected with therapy and psychiatry (Dr. Mars). See's therapist weekly ?? Trazodone 50mg ?? Sertraline 200mg ?? Buproprion XL 150mg Assessment & Plan (10/28/2022 12:46 PM EDT): ?? PHQ-9 today 21 ?? Continue current treatment plan per psychiatry and therapy. Pt declines further intervention at this time. Denies SI or thoughts of self harm Acquired hypothyroidism 04/01/2017 Overview (09/04/2022): ?? Levothyroxine 175 mcg Assessment & Plan (04/29/2023 10:39 AM EDT): Repeat TSH today Assessment & Plan (10/28/2022 12:45 PM EDT): ?? Repeat TSH ordered today Essential hypertension 04/01/2017 Overview (08/21/2023): ?? lisinopril 2.5mg ?? HCTZ 12.5mg ?? amlodipine 5mg ?? Followed by [facility] Dr. Love for hx of CP and syncope with negative eval ?? 06/2023-negative echo Assessment & Plan (07/18/2024 2:33 PM EST): Today elevated she did not took her medications, I advise not to miss any dose and f/u with PCP Assessment & Plan (08/21/2023 6:15 AM EST): Well controlled Continue current regimen Follow up as scheduled with cardiology Assessment & Plan (04/30/2023 10:36 AM EDT): ?? STOP atentolol 12.5mg ?? Follow up as scheduled with cardiology ?? Continue to monitor BP ?? Reviewed ED precautions to include chest pain, shortness of breath, severe headache, sudden vision changes or BP >=180/>=120 mmHg. Contact HC if three or more BP readings >140/90. Assessment & Plan (01/27/2023 10:07 AM EDT): ?? BP well controlled ?? Extensive hx of chest pain and dyspnea with extensive negative evaluation. Has upcoming echocardiogram and venous ultrasounds scheduled through cardiology. Also followed by pulmonology with unremarkable PFT's. ?? Follow up as scheduled with cardiology ?? ED precautions reviewed Assessment & Plan (10/28/2022 12:48 PM EDT): ?? BP slightly elevated in office. Pt did not take medications this morning. Otherwise asx. Pt will continue to monitor and follow up in 1 month or sooner if BP readings persistently >140/90 with medication. ?? Will reach out to nurses to check on status of VNA referral to help with medication adherence. Mild intermittent asthma without complication Class 1 obesity 04/01/2017 Overview (02/04/2024): Encouraged regular aerobic exercise within initial goal of 30 minute walk 3x/week Encouraged balanced diet with a variety of fruits, vegetables, and lean meats. Type 2 diabetes mellitus 04/01/2017 Overview (06/20/2024): - Mounjaro 5mg - Lantus 36 units - Lispro sliding scale INJECT THREE TIMES DAILY PER SLIDING SCALE (IF BLOOD SUGAR 141-180: 8 UNITS, 181-220: 10 UNITS, 221-260: 12 UNITS, 261-300: 14 UNITS, >300: 16 UNITS) - Metformin 1000mg b.I.d Maintenance: Eye Exam: 03/2023 [facility] Diabetic foot exam:12/2023 RISK: 1 Encouraged regular aerobic exercise for improved glycemic control Encouraged daily foot checks Encouraged lean protein snacks and to avoid foods high in sugar and simple carbohydrates Treatment Goals: A1c goal: <7% FBG goal: <130 2 hour post prandial goal: <180. Assessment & Plan (08/21/2023 6:23 AM EST): Lab Results Component Value Date HGBA1C 9.3 (A) 04/29/2023 ?? Pt with hypoglycemia with current standard 12 units pre meal. Pt self administering a sliding scale ?? Will standardize sliding scale with the following: BS 150-199=8 units BS 200-249= 10 units Lab Results Component Value Date HGBA1C 10.2 (A) 07/31/2023 ?? A1c increasing ?? INCREASE lantus to 26 units at bedtime ?? Assessment & Plan (04/30/2023 10:42 AM EDT): Lab Results Component Value Date HGBA1C 9.3 (A) 04/29/2023 ?? Pt with hypoglycemia with current standard 12 units pre meal. Pt self administering a sliding scale ?? Will standardize sliding scale with the following: BS 150-199=8 units BS 200-249= 10 units BS 250-300=12 units BS >300=14 units ?DECREASE evening lantus to 22 units. Encouraged high protein snack before bed to avoid overnight lows ?? Will task RN's to send note to endocrinology re insulin adjustments ?? Pt has glucose tabs. Reviewed instruction for use ?? Follow up as scheduled with endo in 2 weeks Lantus 22 units every evening Assessment & Plan (01/27/2023 10:09 AM EDT): Lab Results Component Value Date HGBA1C 9.2 (A) 01/26/2023 ?? Pt followed closely by [facility] endocrinology ?? Continue current plan as directed ?? Unclear if patient was discontinued glipizide. Will request recent endocrinology note to verify. Assessment & Plan (10/28/2022 12:49 PM EDT): Lab Results Component Value Date HGBA1C 9.7 (A) 10/22/2022 ?? A1c improving from 12% at last visit 07/2022. Continue current regimen per endocrinology. Will request recent notes. Assessment & Plan (09/05/2022 12:42 AM EST): - Increase lantus to 34 units daily - Continue trulicity 4.5mg SQ - Continue glipizide 5mg b.i.d - Continue metformin 1000mg b.i.d - Continue to work with DM educator to improve medication adherence Maintenance: Eye Exam: 10/2021 [facility] Diabetic foot exam:03/2022, RISK: 1 Microalbumin: 03/2022, normal BMP: 05/2022, WNL Encouraged regular aerobic exercise for improved glycemic control Encouraged daily foot checks Encouraged lean protein snacks and to avoid foods high in sugar and simple carbohydrates Treatment Goals: A1c goal: <7% FBG goal: <130 2 hour post prandial goal: <180. Assessment & Plan (07/27/2022 11:33 PM EST): A1c 05/2022: 14.3 - Increase lantus to 34 units daily - Increase trulicity to 4.5mg SQ - Continue glipizide 5mg b.i.d - Continue metformin 1000mg b.i.d - Continue to work with DM educator on medication compliance - F/U 1 month Maintenance: Eye Exam: 10/2021 [facility] Diabetic foot exam:03/2022, RISK: 1 Microalbumin: 03/2022, normal BMP: 05/2022, WNL Encouraged regular aerobic exercise for improved glycemic control Encouraged daily foot checks Encouraged lean protein snacks and to avoid foods high in sugar and simple carbohydrates Treatment Goals: A1c goal: <7% FBG goal: <130 2 hour post prandial goal: <180. 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); Type 2 diabetes mellitus with hyperglycemia, with long-term current use of insulin ([facility]); Productive cough; Rash 10/31/2024 Travel 10/28/2024 Population Health Risk Score [facility] () Department [address] [place] [id number] Provider, Population Health Generic 10/24/2024 Patient Outreach [facility] [address] [place] [address] Nemo Savage FNP Pre-visit Planning ((Unable to reach for PVP screening, LVM)) 10/22/2024 Refill [facility] [address] [place] [address] Nemo Savage FNP Dry skin dermatitis 10/16/2024 Refill [facility] [address] [place], [place] [id number] Nemo Savage FNP Fibromyalgia 09/27/2024 Refill [facility] [address] [place] [address] Nemo Savage FNP Chronic idiopathic constipation 08/26/2024 Refill [facility] [address] [place] [address] [place] [facility] Fibromyalgia 08/25/2024 Refill [facility] [address] [place] [address] [facility] Migraine without status migrainosus, not intractable, unspecified migraine type 08/23/2024 Refill [facility] [address] [place] [address] [place] [facility] Type 2 diabetes mellitus with hyperglycemia, with long-term current use of insulin ([facility]) 08/03/2024 Refill [facility] [address] [place] [address] [place] [facility] Vitamin D deficiency; Dyspepsia; Type 2 diabetes mellitus with hyperglycemia, with long-term current use of insulin ([facility]); 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 from Last 3 Months Immunizations Name Administration Dates Next Due Influenza injectable quadriv alent IIV4 with preservative 05/10/2018,09/24/2017 Influenza injectable quadriv alent preservative free 07/31/2023,06/17/2022 Pfizer Covid-19 Vaccine 12+ 04/07/2022,,08/13/2021 Pfizer Covid-19 Vaccine 12+ alexis-sucrose (Carbone Cap) 04/07/2022,09/04/2021 Pneumococcal Conjugate PCV 20 10/22/2022 Pneumococcal Polysaccharide PPSV23 09/24/2017 Tdap 04/15/2017 Family History Medical History Relation Name Comments Brain cancer Father Pancreatic cancer Paternal Grandfather Heart disease Sister Relation Name Status Comments Father Paternal Grandfather Sister Social History Tobacco Use Types Packs/Day Years [...] not to disclose 2021 10:31 AM EDT Last Filed Vital Signs Vital Sign Reading Time Taken Comments Blood Pressure 138/72 10/31/2024 1:24 PM EDT Pulse 77 10/31/2024 1:03 PM EDT Temperature 36.6 ??C (97.8 ??F) 10/31/2024 1:03 PM ED T Respiratory Rate 20 10/31/2024 1:03 PM EDT Oxygen Saturation 98% 08/01/2024 2:03 PM EST Inhaled Oxygen Concentration - - Weight 105 kg (231 lb 3.2 oz) 10/31/2024 1:03 PM EDT Height 167.6 cm (5' 6 ) 10/31/2024 1:03 PM EDT Body Mass Index 37.32 10/31/2024 1:03 PM EDT Plan of Treatment Upcoming Encounters Date Type Department Care Team (Late st Contact Info) Description 11/14/2024 1:00 PM EDT Medication Management [facility] [address] [place] [address] Crystal Vital, PharmD [address] [place] [address] 12/22/2024 1:00 PM EDT Office Visit [facility] [address] [place] [address] Jenny Blanchard, OD [address] [place] [address] 02/03/2025 1:00 PM EDT Office Visit [facility] [address] [place] [address] Janette, Nemo, CREAM MAKER [address] [place] [address] Health Maintenance Due Date Last Done Comments CT Colonography 1964 Colonoscopy 1964 Colorectal Cancer Screening 1964 FIT DNA/Cologuard 1964 FIT 1964 FOBT 1964 Sigmoidoscopy 1964 Alcohol/Substance Use Screening 1976 Zoster Vaccines (1 of 2) 2014 Pap Smear 07/25/2023 07/25/2020, 07/25/2020 Eye Exam 02/24/2024 02/23/2023, 02/14, 02/23/2023, Additional history exists COVID-19 Vaccine ( season) 2024 04/07/2022, 04/07/2022, 09/04/2021, Additional history exists Influenza Vaccine (#1) 2024 , 06/17/2022, 05/10/2018, Additional history exists RSV Patients and Patients Aged 60 years or older (1 - Risk 60-74 years 1-dose series) 2024 SDOH Screening 08/24/2024 08/24/2023 Diabetes: Foot Exam 12/17/2024 12/18/2023, 12/18/2023, 12/18/2023 Diabetes: Hemoglobin A1C 01/31/202510/31/2 025, 07/19/2024, 05/13/2024, Additional history exists Diabetes: Urine Protein Screening 06/21/2025 06/21/2024, 04/29/2023, 11/03/2022, Additional history exists Lipid Panel 06/21/2025 06/21/2024, 04/17, 11/03/2022, Additional history exists Cervical Cancer Screening 07/25/2025 HPV/Cotest 07/25/2025 07/25/2020 Depression Screening 10/31/2025 10/31/2024, 11/01/19 Tobacco Screening 10/31/2025 10/31/2024 Mammogram 12/16/2025 12/17/2023, 10/15, 04/29/2022, Additional history exists DTaP/Tdap/Td Vaccines (2 - Td or Tdap) 04/15/2027 04/15/2017 HIV Screening Discontinued 04/07/2022 Pneumococcal Vaccine: 50+ Years Completed 10/22/2022, 09/24/2017 HIB Vaccines Aged Out No longer eligi ble based on patient's age to complete this topic HPV Vaccines Aged Out No longer eligi ble based on patient's age to complete this topic Hepatitis A Vaccines Aged Out No long er eligible based on patient's age to complete this topic Hepatitis B Vaccines Discontinued Hepatitis C Screening Discontinued IPV Vaccines Aged Out No longer eligi ble based on patient's age to complete this topic Meningococcal Vaccine Aged Out No samina cherelle eligible based on patient's age to complete this topic RSV under 20 months Aged Out No longe r eligible based on patient's age to complete this topic Rotavirus Vaccines Aged Out No longer eligible based on patient's age to complete this topic Goals Goal Patient Goal Type Associated Problems Recent Progress Patient-Stated? Author Hemoglobin A1c < 7.5 Result Component 8.5(10/31/2024 1:39 PM EDT) No Crystal Vital, Yesika Procedures Procedure Name Priority Date/Time Associated Diagnosis Comments XR CHEST 2 VIEWS Routine 10/31/2024 1:48 PM EDT Productive cough POCT GLUCOSE Routine 10/31/2024 1:39 PM EDT Type 2 diabetes mellitus with hyperglycemia, with long-term current use of insulin ([facility]) POCT GLYCATED HEMOGLOBIN, TOTAL Routine 10/31/2024 1:39 PM EDT Type 2 diabetes mellitus with hyperglycemia, with long-term current use of insulin ([facility]) ALBUMIN, RANDOM URINE W/CREATININE Routine 06/21/2024 10:42 AM EST LIPID PANEL, STANDARD Routine 06/21/2024 10:42 AM EST BI MAMMOGRAM DIAGNOSTIC TOMOSYNTHESIS BILATERAL Routine 12/17/2023 2:05 PM EDT HIV 1/2 ANTIGEN/ANTIBODY, FOURTH GENERATION W/RFL Routine 04/07/2022 9:59 AM EDT HPV MRNA E6/E7 Routine 07/25/2020 10:15 AM EST HM PAP/HPV Routine 07/25/2020 from Last 3 Months or Most Recently Relevant to Health Maintenance Results * XR Chest 2 Views (10/31/2024 1:48 PM EDT) Anatomical Region Laterality Modality Chest Radiographic Daylin ging 10/31/2024 1:48 PM EDT Narrative 10/31/2024 2:20 PM EDT ?[facility] ?[address] ?[place] [address] ?XRay Report ? Signed ? Patient: Carrasquillo Tex,Vicky ?MR#: M ?? [id number] ? : 1965 ?Acct:[id number] ? Age/Sex: 59 / F ?ADM Date: 03/17/25 ? Loc: HO.HHCX ? Attending Dr: Nemo Ocala CREAM MAKER ? Ordering Physician: Ocala,Nemo CREAM MAKER ?? Date of Service: 10/31/24 ?? Procedure(s): XR chest 2V ?? Accession Number(s): [id number] ? cc: Nemo Savage CREAM MAKER ? EXAMINATION: ??XR CHEST 2 VIEWS ? [...] DD/ 1348 ? TD/TT: 10/31/24 1400 ? Mechanical Piping Designer: ? Procedure Note Angie Zamarripa - 10/31/[address] [address] XRay Report Signed Patient: Vicky StacyMR#: M [id number] : 1965Acct:[id number] Age/Sex: 59 / FADM Date: 10/31/24 Loc: HO.HHCX Attending Dr: Nemo SMART Ordering Physician: Nemo Savage Date of Service: 10/31/24 Procedure(s): XR chest 2V Accession Number(s): [id number] cc: Nemo Savage CREAM MAKER EXAMINATION: XR CHEST 2 VIEWS HISTORY: 59 [...] Shaggy Chapman MD 10/31/2024 02:18 PM EDT Dictated By: Shaggy Chapman MD Signed By: <Electronically signed by Shaggy Chapman MD in OV> 10/31/24 1418 DD/ 1348 TD/TT: 10/31/24 1400 Mechanical Piping Designer: Result [facility] IMG XR PROCEDURES Final Resul t * (ABNORMAL) POCT HGB A1C (10/31/2024 1:39 PM EDT) Hemoglobin A1C 8.5(A) 4.0 - 6.0 % QC Media Lot # [id number] Blood 10/31/2024 1:39 PM EDT Result [facility] POINT OF CARE TEST ENTER/EDIT ORDERABLES Final Result * (ABNORMAL) POCT Glucose (10/31/2024 1:39 PM EDT) Glucose Blood, POC 345(A) 60 - 200 mg/dL Blood Capillary blood specimen / Unknown 10/31/2024 1:39 PM EDT Result [facility] POINT OF CARE TEST ENTER/EDIT ORDERABLES Final Result * Albumin, Random Urine W/Creatinine (06/21/2024 10:42 AM EST) Creatinine, Urine 218.18 mg/dL [facility] Microalbumin Urine 11.0 mg/L [facility] Microalbum Creatinine Ratio Ur 5.0 <30 ug/mg cr [facility] Comment:Albumin/Creatinine R atio Reference Ranges: Normal: < 30 ug/mg creatinine Microalbuminuria: 30 - 300 ug/mg creatinineClinical Albuminuria: > 300 ug/mg creatinine 06/21/2024 10:4 2 AM EST 06/21/2024 1:17 PM EST Result [facility] LAB URINE ORDERABLES Final Re sult [facility] [address] [place] [phone] * (ABNORMAL) Lipid Panel, Standard (06/21/2024 10:42 AM EST) Triglycerides 144 <150 mg/dL [facility] Comment:Desirable Triglyceri de: less than 150 mg/dLBorderline High Triglyceride 150-199 mg/dLHigh Triglyceride: 200-499 mg/dLVery High Triglyceride: greater than or equal to 5OO mg/dL Cholesterol 254(H) <200 mg/dL [facility] Comment:Desirable Cholestero l: less than 200 mg/dLBorderline High Cholesterol: 200-239 mg/dLHigh Cholesterol: greater than 239 mg/dL LDL Cholesterol Calculated 180(H) <100 mg/dL [facility] Comment:Desirable LDL: less than 100 mg/dLNear Optimal/Above Optimal LDL: 110- 129 mg/dLBorderline High LDL: 130-159 mg/dLHigh LDL: 160-189 mg/dLVery High LDL: greater than or equal to 190 mg/dL HDL Cholesterol 46 >40 mg/dL [facility] Comment:Desirable HDL: great er than 40 mg/dL Note: This HDL assay may give artificially low results in patients with liver disease. 06/21/2024 10:4 2 AM EST 06/21/2024 1:19 PM EST [facility] CREAM MAKER LAB BLOOD ORDERABLES Final Re sult [facility] [address] [place] [phone] * BI Mammogram Diagnostic Tomosynthesis Bilateral (12/17/2023 2:05 PM EDT) Anatomical Region Laterality Modality Breast Bilateral Mammography 12/17/2023 2:05 PM EDT Narrative 12/17/2023 2:47 PM EDT ? [facility] ? [address] ?[place] [address] ? Mammography Report ? Signed ? Patient: Carrasquillo Tex,Vicky ?MR#: M ?? [id number] ? : 1965 ?Acct:[id number] ? Age/Sex: 58 / F ?ADM Date: 12/17/23 ? Loc: HO.MAMMO ? Attending Dr: Nemo Savage CREAM MAKER ? Ordering Physician: Nemo Savage CREAM MAKER ?Results: 2Beni ?? gn Findings ? Date of Service: 12/17/23 ?Follow Up: 1 Year From Orig ?? inal Mammogram ? Procedure(s): MM tomosynthesis diagnostic BI ?? Accession Number(s): [id number] ? cc: Nemo Savage CREAM MAKER ? EXAMINATION: ?? MM DIAGNOSTIC DIGITAL BREAST TOMOSYNTHESIS, BILATERAL ? CLINICAL INFORMATION: ? Year 2 follow-up for left breast upper outer calcifications middle one ?? third, probably benign. This will establish two-year stability if ?? unchanged. Patient also due for bilateral screening. ? COMPARISON: ?? Mammography: 10/31/2022, 04/29/2022, 10/25/2021, 10/19/2021 (BI-RADS ?? 0), 10/09/2020 (new baseline). ? TECHNIQUE: ?? Digital breast tomosynthesis is performed in both the craniocaudal and ?? mediolateral oblique views along with computer-aided detection (CAD). ?? Synthesized 2D images are generated from the tomosynthesis. In addition ?? to standard views, 2-D spot magnification left CC and ML views were ?? included. ? FINDINGS: ?? There are scattered areas of fibroglandular density (ACR BI-RADS breast ?? composition Category b). ? There has been no aggressive change of the coarse calcifications in the ?? upper outer left breast, which are most consistent with degenerating ?? fibroadenomatoid calcifications. These have remained nonaggressive over ?? a two-year period, establishing benignity. An underlying density most ?? likely represents a degenerating fibroadenoma. ? Otherwise, no developing mass, new suspicious calcifications, or ?? developing architectural distortion in either breast. The parenchymal ?? pattern is unchanged from prior exams bilaterally. Prominent axillary ?? fat pads again noted. No skin abnormalities. ? MM/MM tomosynthesis diagnostic BI ?? IMPRESSION: ?? -No mammographic evidence of malignancy. ? -Dystrophic calcifications upper outer left breast have been ?? stable/nonaggressive over a two-year related, establishing benignity. ?? These are most likely related to an underlying degenerating ?? fibroadenoma. No further follow-up required. ? Recommend patient return to routine annual screening bilaterally. ? ASSESSMENT: ? BI-RADS BI-RADS 2 - Benign Findings ? RECOMMENDATION: ?? 1 year F/U ? Results were provided to the patient at time of visit by the ?? technologist. ? This patient's information was entered into a reminder system with a ?? target due date for their next mammogram. ? Dictated By: ?Samson Abreu MD ? Signed By: ?<Electronically signed by Samson Abreu MD in OV> ?12/17/23 1443 ? DD/ 1405 ? TD/TT: ? Mechanical Piping Designer: ? Procedure Note Angie Zamarripa - 12/17/2023 [facility] [address] [place] [address] Dr. Reyna, [place] [address] Mammography Report Signed Patient: Vicky Stacy#: M [id number] : 1965Acct:[id number] Age/Sex: 58 / FADM Date: 12/17/23 Loc: HO.MAMMO Attending Dr: Nemo Savage CREAM MAKER Ordering Physician: Nemo Savage FNPResults: 2Beni gn Findings Date of Service: 12/17/23Follow Up: 1 Year From Orig ina Mammogram Procedure(s): MM tomosynthesis diagnostic BI Accession Number(s): [id number] cc: Nemo Savage CREAM MAKER EXAMINATION: MM DIAGNOSTIC DIGITAL BREAST TOMOSYNTHESIS, BILATERAL CLINICAL INFORMATION: Year 2 follow-up for left breast upper outer calcifications middle one third, probably benign. This will establish two-year stability if unchanged. Patient also due for bilateral screening. COMPARISON: Mammography: 10/31/2022, 04/29/2022, 10/25/2021, 10/19/2021 (BI-RADS 0), 10/09/2020 (new baseline). TECHNIQUE: Digital breast tomosynthesis is performed in both the craniocaudal and mediolateral oblique views along with computer-aided detection (CAD). Synthesized 2D images are generated from the tomosynthesis. In addition to standard views, 2-D spot magnification left CC and ML views were included. FINDINGS: There are scattered areas of fibroglandular density (ACR BI-RADS breast composition Category b). There has been no aggressive change of the coarse calcifications in the upper outer left breast, which are most consistent with degenerating fibroadenomatoid calcifications. These have remained nonaggressive over a two-year period, establishing benignity. An underlying density most likely represents a degenerating fibroadenoma. Otherwise, no developing mass, new suspicious calcifications, or developing architectural distortion in either breast. The parenchymal pattern is unchanged from prior exams bilaterally. Prominent axillary fat pads again noted. No skin abnormalities. MM/MM tomosynthesis diagnostic BI IMPRESSION: -No mammographic evidence of malignancy. -Dystrophic calcifications upper outer left breast have been stable/nonaggressive over a two-year related, establishing benignity. These are most likely related to an underlying degenerating fibroadenoma. No further follow-up required. Recommend patient return to routine annual screening bilaterally. ASSESSMENT: BI-RADS BI-RADS 2 - Benign Findings RECOMMENDATION: 1 year F/U Results were provided to the patient at time of visit by the technologist. This patient's information was entered into a reminder system with a target due date for their next mammogram. Dictated By: Samson Abreu MD Signed By: <Electronically signed by Samson Abreu MD in OV> 12/17/23 1443 DD/ 1405 TD/TT: Mechanical Piping Designer: [facility] CREAM MAKER IMG BI PROCEDURES Final Resul t * HIV 1/2 ANTIGEN/ANTIBODY,FOURTH GENERATION W/RFL (04/07/2022 9:59 AM EDT) HIV-1/2 ANTIGEN AND ANTIBODIES, 4TH GENERATION W/ REFLEX NON-REACT RAMYA NON-REACT RAMYA [facility] Comment: HIV-1 antigen and HIV-1/HIV-2 antibodies were not detected. There is no laboratory evidence of HIV infection. ?? PLEASE NOTE: This information has been disclosed to you from records whose confidentiality may be protected by state law. ??If your state requires such protection, then the state law prohibits you from making any further disclosure of the information without the specific written consent of the person to whom it pertains, or as otherwise permitted by law. A general authorization for the release of medical or other information is NOT sufficient for this purpose. ? For additional information please refer to http://education.[employer]/faq/QQC897 (This link is being provided for informational/ educational purposes only.) ? The performance of this assay has not been clinically validated in patients less than 2 years old. ?? 04/07/2022 9:59 AM EDT Joy Delcid GUEST ASSOCIATE LAB BLOOD ORDERABLES Final Res ult [facility] [address] * (ABNORMAL) HPV mRNA E6/E7 (07/25/2020 10:15 AM EST) HPV nRNA E6/E7 Detected (A) Not Detected [facility] Comment: This test was performed using the APTIMA HPV Assay ([employer] This assay detects E6/E7 viral messenger RNA (mRNA) from 14 high-risk HPV types (16,18,31,33,35,39,45,51,52,56,58,59,66,68). ?? The analytical performance characteristics of this assay have been determined by [employer]. The modifications have not been cleared or approved by the FDA. This assay has been validated pursuant to the CLIA regulations and is used for clinical purposes. 07/25/2020 10:1 5 AM EST Beverly MUNSON LAB BLOOD ORDERABLES Nevaeh fischer Result [facility] [address] * Pap Smear (07/25/2020) Pap smear Preformed Historical Provider MD HEALTH MAINTENANCE Final Result from Last 3 Months or Most Recently Relevant to Health Maintenance Insurance C3 Care Teams Mulling Machine Operator Relationship Specialty Start Date End Date OcalaNemo, CREAM MAKER [address] [place] [address] PCP - General Family Medicine 04/14/22 Crystal Vital, VerenaD [address] [place] [address] Pharmacist Internal Medicine 05/16/24
--- OUTSIDE RECORDS SUMMARY | 2024-10-31 16:07 | XMS_ITS | Encounter Summary ---
Author Organization [employer] Address [address] [facility] 7 [place] [address] Care Team Providers Care Property Management Bookkeeper Name Role Phone Nemo Savage STAPLE SIDE LASTER Primary Care Provider [phone] Crystal Vital PharmD Unavailable [phone] Encounter Details Date Type Department Care Team ([facility] st Contact Info) Description 10/28/2024 Population Health Risk Score [facility] (C3) Department [address] [phone] Provider, Population Health Generic Social History Tobacco Use Types Packs/Day Years [...] Description 11/14/2024 1:00 PM EDT Medication Management [facility] MEDICINE [address] [place] [phone] Crystal Vital PharmD [address] [place] [address] 12/22/2024 1:00 PM EDT Office Visit [facility] OPTOMETRY [address] [place] [address] Jenny Blanchard, CARLINE [address] [place] [address] 02/03/2025 1:00 PM EDT Office Visit [facility] MEDICINE [address] [place] [address] LuverneNemo, STAPLE SIDE LASTER [address] [place] [address] documented as of this encounter Goals Goal Patient Goal Type Associated Problems Recent Progress Patient-Stated? Author Hemoglobin A1c < 7.5 Result Component 8.5(10/31/2024 1:39 PM EDT) No Crystal Vital, PharmKatiana documented as of this encounter Visit Diagnoses Not on filedocumented in this encounter Additional Health Concerns Assessment Noted Time PHQ-9 Depression Total Score: 0 08/01/20 24 2:04 PM EST documented as of this encounter Care Teams Property Management Bookkeeper Relationship Specialty Start Date End Date Nemo Savage FNP [address] [place] [address] PCP - General Family Medicine 04/14/22 Crystal Vital PharmD [address] [place] [address] Pharmacist Internal Medicine 05/16/24 documented as of this encounter
--- OUTSIDE RECORDS SUMMARY | 2024-10-31 16:07 | XMS_ITS | Encounter Summary ---
Author Organization [employer] Address [address] [place] [address] [address] [place] [address] Care Team Providers Care Manual Control Auger Press Operator Name Role Phone Nemo Savage RUBBER CUTTER AND SHAPE CARVER Primary Care Provider [phone] Crystal Vital PharmD Unavailable [phone] Reason for Visit * Reason Comments Med Refill Encounter Details Date Type Department Care Team (Late Contact Info) Description 04/20/2023 Refill [facility] MEDICINE [address] [place], [place] [phone] Gokul Weinstein AGNP Social History Tobacco Use Types Packs/Day Years [...] Description 11/14/2024 1:00 PM EDT Medication Management [facility] MEDICINE [address] [place], [place] [phone] Crystal Vital, PharmD [address] [place] [address] 12/22/2024 1:00 PM EDT Office Visit [facility] OPTOMETRY [address] [place] [address] Jenny Blanchard OD [address] [place] [address] 02/03/2025 1:00 PM EDT Office Visit [facility] MEDICINE [address] [place] [address] Nemo Savage FNP [address] [place] [address] documented as of this encounter Visit Diagnoses Not on filedocumented in this encounter Additional Health Concerns Assessment Noted Time PHQ-9 Depression Total Score: 21 023 8:54 AM EST documented as of this encounter Care Teams Manual Control Auger Press Operator Relationship Specialty Start Date End Date Nemo Savage FNP [address] [place] [phone] PCP - General Family Medicine 04/14/22 Crystal Vital, VerenaD [address] [place] [phone] Pharmacist Internal Medicine 05/16/24 documented as of this encounter
== END 2024-10-31 13:48 | disposition home or self-care (01) ==
LOC: HO.HHCX 13:47
PROVIDERS: Visit Provider Registered Nurse
DX: R05.8 Other specified cough (principal)
CPT/HCPCS: 71046

== ENCOUNTER → 2024-10-31 13:48 | Outpatient (BNV) | payer MEDICAID, SELFPAY | PROVIDERS: Visit Provider Radiology Diagnostic Radiology | DX: J45.909 Unspecified asthma, uncomplicated (principal); R05.9 Cough, unspecified | CPT/HCPCS: 71046 ==

== ENCOUNTER 2024-11-21 09:11 | Outpatient (REF) | payer MEDICAID, SELFPAY ==
--- OUTSIDE RECORDS SUMMARY | 2024-11-21 10:13 | XMS_ITS | Encounter Summary ---
Author Organization [employer] Address [address] [place] [address] [address] [place] [address] Care Team Providers Care Technical Illustrations Map Inker Name Role Phone [facility] Primary Care Provider [phone] Crystal Vital PharmD Unavailable [phone] Reason for Visit * Reason Comments Med Refill Encounter Details Date Type Department Care Team (Late st Contact Info) Description 11/21/2024 Refill [facility] MEDICINE [address] [place] [address] [facility] [address] [place], [place] [phone] Rash Social History Tobacco Use Types Packs/Day [...] Care Team (Late st Contact Info) Description 11/28/2024 11:30 AM EDT Medication Management [facility] MEDICINE [address] [place] [phone] Crystal Vital, PharmD [address] [place] [address] 12/22/2024 1:00 PM EDT Office Visit [facility] OPTOMETRY [address] [place] [address] Jenny Blanchard, OD [address] [place] [address] 02/03/2025 1:00 PM EDT Office Visit [facility] MEDICINE [address] [place] [address] Janette, Nemo, SIDEWALK REPAIRER [address] [place] [address] documented as of this encounter Goals Goal Patient Goal Type Associated Problems Recent Progress Patient-Stated? Author Hemoglobin A1c < 7.5 Result Component 8.5(10/31/2024 1:39 PM EDT) No Crystal Vital, PharmD documented as of this encounter Visit Diagnoses Diagnosis Rash Rash and other nonspecific skin eruption documented in this encounter Additional Health Concerns Assessment Noted Time PHQ-9 Depression Total Score: 8 11/01/19 25 1:04 PM EDT documented as of this encounter Care Teams Technical Illustrations Map Inker Relationship Specialty Start Date End Date Nemo Savage FNP [address] [place] [address] PCP - General Family Medicine 04/14/22 Crystal Vital PharmD [address] [place] [address] Pharmacist Internal Medicine 05/16/24 documented as of this encounter
--- OUTSIDE RECORDS SUMMARY | 2024-11-21 10:13 | XMS_ITS | Encounter Summary ---
Author Organization [facility] Address [address] [place] [address] Care Team Providers Care Tutoring Clinician Name Role Phone [facility] Primary Care Provider [phone] Reason for Referral * Hospital - Outpatient (Routine) - Closed Specialty Diagnoses / Procedures Referred By Jordan t Referred To Contact Gastroenterology Diagnoses Colon cancer screening Procedures COLONOSCOPY Anesthesia - MAC; [facility] END[facility]COPY Lino Curtis DO [address] [address] Phone: tel: fax: [facility] Endoscopy [address] [place] [address] Phone: tel: Referral ID Status Reason Start Date Expiration Date Visits Re quested Visits Authorized [id number] Closed 06/30/2024 06/30/2025 1 1 Reason for Visit * Hospital - Outpatient (Routine) - Closed Specialty Diagnoses / Procedures Referred By Jordan diallo Referred To Contact Gastroenterology Diagnoses Colon cancer screening Procedures COLONOSCOPY Anesthesia - MAC; [facility] END[facility] Lino Curtis DO [address] [address] Phone: tel: fax: [facility] [address] [place] [address] Phone: tel: Referral ID Status Reason Start Date Expiration Date Visits Re quested Visits Authorized [id number] Closed 06/30/2024 06/30/2025 1 1 Encounter Details Date Type Department Care Team (Latest Contact Info) Description 11/15/2024 9:16 AM EDT - 11/15/2024 11:59 PM EDT Hospital Encounter [facility] Endoscopy [address] [place] [phone] Lino Curtis, DO [address] [address] Carissa Shore CRNA [address] [place] [address] Lukas Pagan DO [address] [place] [address] Colon cancer screening Discharge Disposition: Home or Self Care Social History Tobacco Use Types Packs/Day Years Used Date Smoking Tobacco: Never Smokeless Tobacco: Never Tobacco Cessation:Counseling Given: Not Answered Alcohol Use Standard Drinks/Week Comments Not Currently 0 (1 standard drink = 0.6 oz pur e alcohol) Interpersonal Safety Answer Date Record ed Physical Abuse 11/15/2024 Verbal Abuse 11/15/2024 Comments No Sex and Gender Information Value Date Recorded Sex Assigned at Female 11/14/2024 3:06 PM EDT Legal Sex Female 2:25 AM EST Gender Identity Female 11/14/2024 3:06 PM EDT Sexual Orientation Not on file documented as of this encounter Last Filed Vital Signs Vital Sign Reading Time Taken Comments Blood Pressure 160/84 11/15/2024 11:35 AM EDT Pulse 75 11/15/2024 11:35 AM EDT Temperature 36.1 ??C (97 ??F) 11/15/2024 10:10 AM EDT Respiratory Rate 16 11/15/2024 11:35 AM EDT Oxygen Saturation 100% 11/15/2024 11:35 AM EDT Inhaled Oxygen Concentration - - Weight 104 kg (229 lb) 11/15/2024 10:10 AM EDT Height 167.6 cm (5' 6 ) 11/15/2024 10:10 AM EDT Body Mass Index 36.96 11/15/2024 10:10 AM EDT documented in this encounter Discharge Instructions * Attachments The following attachments cannot be sent through Care Everywhere. * Colonoscopy: Post-op (Turkish) documented in this encounter Medications at Time of Discharge albuterol 2.5 mg /3 mL (0.083 %) nebulizer solution Take 3 mL (2.5 mg total) by nebulization every 6 (six) hours if needed for wheezing. amLODIPine (NORVASC) 5 mg tablet Take 1 tablet (5 mg total) by mouth 1 (one) time each day. aspirin (Adult Low Dose Aspirin) 81 mg EC tablet Take 1 tablet (81 mg total) by mouth 1 (one) time each day. atorvastatin (LIPITOR) 80 mg tablet Take 1 tablet (80 mg total) by mouth at bedtime. bisacodyL (DULCOLAX) 5 mg EC tablet Take 2 tablets by mouth right before beginning bowel prep. See instructions provided by the office 2 tablet 11/01/2024 buPROPion XL (WELLBUTRIN XL) 150 mg 24 hr tablet Take 1 tablet (150 mg total) by mouth 1 (one) time each day. Do not crush, chew, or split. cholecalciferol (VITAMIN D-3) 50 mcg (2,000 unit) tablet Take 1 tablet (2,000 Units total) by mouth 1 (one) time each day. ciclopirox (PENLAC) 8 % solution Apply topically at bedtime. Apply over nail and surrounding skin. Apply daily over previous coat. After seven (7) days, may remove with alcohol and continue cycle. clotrimazole (LOTRIMIN) 1 % cream Apply topically 2 (two) times a day. ezetimibe (ZETIA) 10 mg tablet Take 1 tablet (10 mg total) by mouth 1 (one) time each day. fluticasone furoate (Arnuity Ellipta) 100 mcg/actuation blister with device inhaler Inhale 1 puff by mouth 1 (one) time each day. furosemide (LASIX) 40 mg tablet Take 1 tablet (40 mg total) by mouth 1 (one) time each day. gabapentin (NEURONTIN) 300 mg capsule Take 1 capsule (300 mg total) by mouth 3 (three) times a day. glucose 4 gram chewable tablet Chew 4 tablets (16 g total) if needed for low blood sugar. hydrocortisone 1 % topical cream Apply topically 2 (two) times a day. insulin glargine (LANTUS) 100 unit/mL injection Inject 34 Units under the skin at bedtime. insulin lispro 100 unit/mL injection Inject under the skin 3 (three) times a day before meals. -Administer within 15 minutes of a meal isosorbide mononitrate (IMDUR) 30 mg 24 hr tablet Take 1 tablet (30 mg total) by mouth 1 (one) time each day. Do not crush or chew. levalbuterol (XOPENEX HFA) 45 mcg/actuation inhaler Inhale 1-2 puffs by mouth every 6 (six) hours if needed for wheezing. levothyroxine (SYNTHROID, LEVOTHROID) 200 mcg tablet Take 1 tablet (200 mcg total) by mouth 1 (one) time each day before breakfast. metFORMIN (GLUCOPHAGE) 1,000 mg tablet Take 1 tablet (1,000 mg total) by mouth 2 (two) times a day with meals. montelukast (SINGULAIR) 10 mg tablet Take 1 tablet (10 mg total) by mouth at bedtime. ondansetron (ZOFRAN) 4 mg tablet Take 1 tablet (4 mg total) by mouth every 8 (eight) hours if needed for nausea or vomiting. oxyBUTYnin XL (DITROPAN-XL) 10 mg 24 hr tablet Take 1 tablet (10 mg total) by mouth 1 (one) time each day. Do not crush, chew, or split. pantoprazole (PROTONIX) 40 mg EC tablet Take 1 tablet (40 mg total) by mouth 2 (two) times a day. Do not crush, chew, or split. polycarbophil (FIBERCON) 625 mg tablet Take 1 tablet (625 mg total) by mouth 1 (one) time each day. polyethylene glycol (Golytely) 236-22.74-6.74 -5.86 gram solution Take 4L by mouth once for one dose. May substitue any PEG. Starting at 6PM the night before your procedure drink 1 8oz glasses at your own pace until you complete half of the gallon. Finish 2nd half of the gallon 5 hours before your procedure. 4000 mL 11/01/2024 senna (SENOKOT) 8.6 mg tablet Take 1 tablet (8.6 mg total) by mouth 1 (one) time each day. sertraline (ZOLOFT) 100 mg tablet Take 2 tablets (200 mg total) by mouth 1 (one) time each day. tirzepatide (MOUNJARO) 5 mg/0.5 mL injection Inject 0.5 mL (5 mg total) under the skin every 7 (seven) days. topiramate (TOPAMAX) 25 mg tablet Take 1 tablet (25 mg total) by mouth 1 (one) time each day. traZODone (DESYREL) 50 mg tablet Take 1 tablet (50 mg total) by mouth at bedtime. Trulicity 4.5 mg/0.5 mL pen injector injection INJECT ONE PEN (= 4.5MG) SUBCUTANEOUSLY ONCE A WEEK DIRECTED 11/24/2023 documented as of this encounter Discharge Disposition Disposition Code Departure Means Destination Home or Self Care documented in this encounter Progress Notes * Soila Garza RN - 11/15/2024 11:23 AM EDT Problem: Cognitive:Periop Procedure - Minor Goal: Knowledge of disease or condition will improve Outcome: Adequate for Discharge Problem: Sensory:Periop Procedure - Minor Goal: Demonstrates/reports adequate pain control Outcome: Adequate for Discharge Pt meets criteria for d/c * Tete Wiseman RN - 11/15/2024 10:16 AM EDT Problem: Cognitive:Periop Procedure - Minor Goal: Knowledge of disease or condition will improve Outcome: Progressing Problem: Sensory:Periop Procedure - Minor Goal: Demonstrates/reports adequate pain control Outcome: Progressing PATIENT VERBALIZES UNDERSTANDING OF DISCHARGE INSTRUCTIONS documented in this encounter H&P Notes * Lino Curtis DO - 11/15/2024 10:30 AM EDT Pre-Op Diagnosis: screening Proposed Procedure: colonoscopy Performing Surgeon/MD/Endoscopist: Lino Curtis DO Medical/History: No past medical history on file.No past surgical history on file. Medications/Allergies: Prior to Admission medications Medication Sig Start Date End Date Taking? Authorizing Provider Trulicity 4.5 mg/0.5 mL pen injector injection INJECT ONE PEN (= 4.5MG) SUBCUTANEOUSLY ONCE A WEEK DIRECTED 11/24/23 Yes Historical ProviderMD albuterol 2.5 mg /3 mL (0.083 %) nebulizer solution Take 3 mL (2.5 mg total) by nebulization every 6 (six) hours if needed for wheezing. Historical ProviderMD amLODIPine (NORVASC) 5 mg tablet Take 1 tablet (5 mg total) by mouth 1 (one) time each day. Historical ProviderMD aspirin (Adult Low Dose Aspirin) 81 mg EC tablet Take 1 tablet (81 mg total) by mouth 1 (one) time each day. Historical Provider, atorvastatin (LIPITOR) 80 mg tablet Take 1 tablet (80 mg total) by mouth at bedtime. Historical ProviderMD bisacodyL (DULCOLAX) 5 mg EC tablet Take 2 tablets by mouth right before beginning bowel prep. See instructions provided by the office 11/01/24 Cinthya Real NP buPROPion XL (WELLBUTRIN XL) 150 mg 24 hr tablet Take 1 tablet (150 mg total) by mouth 1 (one) timeeach day. Do not crush, chew, or split. Historical ProviderMD cholecalciferol (VITAMIN D-3) 50 mcg (2,000 unit) tablet Take 1 tablet (2,000 Units total) by mouth1 (one) time each day. Historical Provider, ciclopirox (PENLAC) 8 % solution Apply topically at bedtime. Apply over nail and surrounding skin. Apply daily over previous coat. After seven (7) days, may remove with alcohol and continue cycle. Historical ProviderMD clotrimazole (LOTRIMIN) 1 % cream Apply topically 2 (two) times a day. Historical Provider, ezetimibe (ZETIA) 10 mg tablet Take 1 tablet (10 mg total) by mouth 1 (one) time each day. Historical Provider, fluticasone furoate (Arnuity Ellipta) 100 mcg/actuation blister with device inhaler Inhale 1 puff by mouth 1 (one) time each day. Historical ProviderMD furosemide (LASIX) 40 mg tablet Take 1 tablet (40 mg total) by mouth 1 (one) time each day. Historical ProviderMD gabapentin (NEURONTIN) 300 mg capsule Take 1 capsule (300 mg total) by mouth 3 (three) times a day.Historical ProviderMD glucose 4 gram chewable tablet Chew 4 tablets (16 g total) if needed for low blood sugar. Historical ProviderMD hydrocortisone 1 % topical cream Apply topically 2 (two) times a day. Historical ProviderMD insulin glargine (LANTUS) 100 unit/mL injection Inject 34 Units under the skin at bedtime. Historical ProviderMD insulin lispro 100 unit/mL injection Inject under the skin 3 (three) times a day before meals. -Administer within 15 minutes of a meal Historical ProviderMD isosorbide mononitrate (IMDUR) 30 mg 24 hr tablet Take 1 tablet (30 mg total) by mouth 1 (one) timeeach day. Do not crush or chew. Historical ProviderMD levalbuterol (XOPENEX HFA) 45 mcg/actuation inhaler Inhale 1-2 puffs by mouth every 6 (six) hours if needed for wheezing. Historical ProviderMD levothyroxine (SYNTHROID, LEVOTHROID) 200 mcg tablet Take 1 tablet (200 mcg total) by mouth 1 (one)time each day before breakfast. Historical ProviderMD metFORMIN (GLUCOPHAGE) 1,000 mg tablet Take 1 tablet (1,000 mg total) by mouth 2 (two) times a day with meals. Historical ProviderMD montelukast (SINGULAIR) 10 mg tablet Take 1 tablet (10 mg total) by mouth at bedtime. Historical ProviderMD ondansetron (ZOFRAN) 4 mg tablet Take 1 tablet (4 mg total) by mouth every 8 (eight) hours if needed for nausea or vomiting. Historical ProviderMD oxyBUTYnin XL (DITROPAN-XL) 10 mg 24 hr tablet Take 1 tablet (10 mg total) by mouth 1 (one) time each day. Do not crush, chew, or split. Historical ProviderMD pantoprazole (PROTONIX) 40 mg EC tablet Take 1 tablet (40 mg total) by mouth 2 (two) times a day. Do not crush, chew, or split. Historical ProviderMD polycarbophil (FIBERCON) 625 mg tablet Take 1 tablet (625 mg total) by mouth 1 (one) time each day.Historical ProviderMD polyethylene glycol (Golytely) 236-22.74-6.74 -5.86 gram solution Take 4L by mouth once for one dose. May substitue any PEG. Starting at 6PM the night before your procedure drink 1 8oz glasses at your own pace until you complete half of the gallon. Finish 2nd half of the gallon 5 hours before your procedure. 11/01/24 Cinthya Real, JONN senna (SENOKOT) 8.6 mg tablet Take 1 tablet (8.6 mg total) by mouth 1 (one) time each day. Historical Provider, sertraline (ZOLOFT) 100 mg tablet Take 2 tablets (200 mg total) by mouth 1 (one) time each day. Historical Provider, tirzepatide (MOUNJARO) 5 mg/0.5 mL injection Inject 0.5 mL (5 mg total) under the skin every 7 (seven) days. Historical Provider, topiramate (TOPAMAX) 25 mg tablet Take 1 tablet (25 mg total) by mouth 1 (one) time each day. Historical Provider, traZODone (DESYREL) 50 mg tablet Take 1 tablet (50 mg total) by mouth at bedtime. Historical Provider, Patient Age:59 y.o. Vitals: There were no vitals filed for this visit. Physical Exam: Mental Status: Clear HEENT: WNL Heart: WNL Lungs: WNL Abdomen: WNL Extremities: WNL Neuro: WNL Labs: Imaging: Diagnosis/Plan: colonoscopy documented in this encounter Procedure Notes * Soila Garza RN - 11/15/2024 11:40 AM EDT Pt tolerated fluids to drink and meets discharge criteria. documented in this encounter Plan of Treatment Not on file documented as of this encounter Procedures Procedure Name Priority Date/Time Associated Diagnosis Comments COLONOSCOPY Routine 11/15/2024 11:14 AM EDT Colon cancer screening documented in this encounter Results * COLONOSCOPY Anesthesia - MAC; [facility] END[facility] (11/15/2024 11:14 AM EDT) Anatomical Region Laterality Modality Endoscopy 11/15/2024 10:1 1 AM EDT Impressions 11/15/2024 11:14 AM EDT - The examination was otherwise normal on direct and ? retroflexion views. ? - No specimens collected. Recommendation: ?- - Discharge patient to home. ? - Resume previous diet. ? - Continue present medications. ? - Repeat colonoscopy in 10 years for screening ? purposes. ? - Return to primary care physician. Narrative 11/15/2024 11:14 AM EDT [facility] GI Patient Name: Vicky Nice Procedure Date: 11/15/2024 10:11 AM Date of : 1965 Age: 59 Gender: Female Note Status: Finalized Attending MD: Lino Curtis DO, [id number] Procedure Date No Time: 11/15/2024 Procedure: ? Colonoscopy Indications: ? Screening for colorectal malignant neoplasm Providers: ? Lino Curtis DO Referring MD: ?Nemo Sedalia Medicines: ? Monitored Anesthesia Care Complications: ? No immediate complications. Estimated blood loss: None. Estimated Blood Loss: ? Estimated blood loss: none. Procedure: ? Pre-Anesthesia Assessment: ? - - Prior to the procedure, a History and Physical was ? performed, and patient medications and allergies were ? reviewed. The patient is competent. The risks and ? benefits of the procedure and the sedation options and ? risks were discussed with the patient. All questions ? were answered and informed consent was obtained. ? Patient identification and proposed procedure were ? verified by the physician, the nurse, the ? anesthesiologist, the medical detailist and the batch room technician ? in the pre-procedure area in the endoscopy suite. ? Mental Status Examination: alert and oriented. Airway ? Examination: normal oropharyngeal airway and neck ? mobility. Respiratory Examination: clear to ? auscultation. CV Examination: normal. Prophylactic ? Antibiotics: The patient does not require prophylactic ? antibiotics. Prior Anticoagulants: The patient has ? taken no anticoagulant or antiplatelet agents. ASA ? Grade Assessment: II - A patient with severe systemic ? disease. After reviewing the risks and benefits, the ? patient was deemed in satisfactory condition to ? undergo the procedure. The anesthesia plan was to use ? monitored anesthesia care (MAC). Immediately prior to ? administration of medications, the patient was ? re-assessed for adequacy to receive sedatives. The ? heart rate, respiratory rate, oxygen saturations, ? blood pressure, adequacy of pulmonary ventilation, and ? response to care were monitored throughout the ? procedure. The physical status of the patient was ? re-assessed after the procedure. ? After I obtained informed consent, the scope was ? passed under direct vision. Throughout the procedure, ? the patient's blood pressure, pulse, and oxygen ? saturations were monitored continuously. The Olympus ? Pediatric Colonoscope was introduced through the anus ? and advanced to the cecum, identified by appendiceal ? orifice and ileocecal valve. The colonoscopy was ? performed without difficulty. The patient tolerated ? the procedure well. The quality of the bowel ? preparation was good. Findings: ?The perianal and digital rectal examinations were ? normal. ? The exam was otherwise without abnormality on direct ? and retroflexion views. Procedure Code(s): ? --- Professional --- ? G0121, Colorectal cancer screening; colonoscopy on ? individual not meeting criteria for high risk Diagnosis Code(s): ? --- Professional --- ? Z12.11, Encounter for screening for malignant neoplasm ? of colon CPT copyright 202 [employer]. All rights reserved. The codes documented in this report are preliminary and upon preforming machine operator review may be revised to meet current compliance requirements. LINO Curtis DO 11/15/2024 11:14:28 AM This report has been signed electronically.Lino Curtis DO Number of Addenda: 0 Note Initiated On: 11/15/2024 10:11 AM Scope Withdrawal Time: 0 hours 7 minutes 24 seconds Scope In: 11:03:11 AM Scope Out: 11:13:27 AM ? Endoscopy Department at [facility] - [address] [place] [address], ? [place] [address] Procedure Note Lino Curtis DO - 11/15/2024 [facility] GI Patient Name: Vicky Nice Procedure Date: 11/15/2024 10:11 AM Date of : 1965 Age: 59 Gender: Female Note Status: Finalized Attending MD: Lino Curtis DO, [id number] Procedure Date No Time: 11/15/2024 Procedure: Colonoscopy Indications: Screening for colorectal malignant neoplasm Providers: Lino Curtis DO Referring MD: Nemo Savage Medicines: Monitored Anesthesia Care Complications: No immediate complications. Estimated blood loss:None. Estimated Blood Loss: Estimated blood loss: none. Procedure: Pre-Anesthesia Assessment: - - Prior to the procedure, a History and Physicalwas performed, and patient medications and allergieswere reviewed. The patient is competent. The risks and benefits of the procedure and the sedation optionsand risks were discussed with the patient. Allquestions were answered and informed consent was obtained. Patient identification and proposed procedure were verified by the physician, the nurse, the anesthesiologist, the medical detailist and thetechnician in the pre-procedure area in the endoscopy suite. Mental Status Examination: alert and oriented.Airway Examination: normal oropharyngeal airway and neck mobility. Respiratory Examination: clear to auscultation. CV Examination: normal. Prophylactic Antibiotics: The patient does not requireprophylactic antibiotics. Prior Anticoagulants: The patient has taken no anticoagulant or antiplatelet agents. ASA Grade Assessment: II - A patient with severesystemic disease. After reviewing the risks and benefits,the patient was deemed in satisfactory condition to undergo the procedure. The anesthesia plan was touse monitored anesthesia care (MAC). Immediately priorto administration of medications, the patient was re-assessed for adequacy to receive sedatives. The heart rate, respiratory rate, oxygen saturations, blood pressure, adequacy of pulmonary ventilation,and response to care were monitored throughout the procedure. The physical status of the patient was re-assessed after the procedure. After I obtained informed consent, the scope was passed under direct vision. Throughout theprocedure, the patient's blood pressure, pulse, and oxygen saturations were monitored continuously. TheOlympus Pediatric Colonoscope was introduced through theanus and advanced to the cecum, identified byappendiceal orifice and ileocecal valve. The colonoscopy was performed without difficulty. The patient tolerated the procedure well. The quality of the bowel preparation was good. Findings: The perianal and digital rectal examinations were normal. The exam was otherwise without abnormality ondirect and retroflexion views. Procedure Code(s): --- Professional --- G0121, Colorectal cancer screening; colonoscopy on individual not meeting criteria for high risk Diagnosis Code(s): --- Professional --- Z12.11, Encounter for screening for malignantneoplasm of colon CPT copyright 2020 [employer]. All rights reserved. The codes documented in this report are preliminary and upon preforming machine operator reviewmay be revised to meet current compliance requirements. LINO Curtis DO 11/15/2024 11:14:28 AM This report has been signed electronically.Lino Curtis DO Number of Addenda: 0 Note Initiated On: 11/15/2024 10:11 AM Scope Withdrawal Time: 0 hours 7 minutes 24 seconds Scope In: 11:03:11 AM Scope Out: 11:13:27 AM Endoscopy Department at [facility] - [address] [place] [id number] IMPRESSION: - The examination was otherwise normal on direct and retroflexion views. - No specimens collected. Recommendation: - - Discharge patient to home. - Resume previous diet. - Continue present medications. - Repeat colonoscopy in 10 years for screening purposes. - Return to primary care physician. Lino Curtis DO GI~PROCEDURE ORDERABLES Final Re sult documented in this encounter Visit Diagnoses Diagnosis Colon cancer screening Special screening for malignant neoplasms, colon documented in this encounter Historical Medications * This list may reflect changes made after this encounter. Trulicity 4.5 mg/0.5 mL pen injector injection INJECT ONE PEN (= 4.5MG) SUBCUTANEOUSLY ONCE A WEEK DIRECTED 11/24/2023 added in this encounter Orders Medications Ordered That Boyd ht Not Have Been Administered Count Last Ordered Date First Ordered Date lactated Ringer's infusion 1 11/15/2024 sodium chloride 0.9 % flush 10 mL 2 025 Discharge Count Last Ordered Date First Orde red Date DISCHARGE PATIENT 1 11/15/2024 documented in this encounter Care Teams Tutoring Clinician Relationship Specialty Start Date End Date SedaliaNemo [address] [place] [id number] PCP - General Family Medicine 06/27/24 documented as of this encounter
--- OUTSIDE RECORDS SUMMARY | 2024-11-21 10:13 | XMS_ITS | Encounter Summary ---
Author Organization [employer] Address [address] [place] [address] 7 [place] [address] Care Team Providers Care Dry Transfer Worker Name Role Phone Nemo Savage DERIVATIVES TRADER Primary Care Provider [phone] Crystal Vital PharmD Unavailable [phone] Encounter Details Date Type Department Care Team (Late st Contact Info) Description 11/18/2024 Telephone [facility] MEDICINE 230 [place], [place] [phone] Crystal Vital, PharmD 230 [place] [address] Social History Tobacco Use Types Packs/Day Years [...] encounter Miscellaneous Notes * Telephone Encounter - Crystal Vital PharmD - 11/18/2024 4:16 PM EDT Per preferred pharmacy, prescription for glucose gel requires PA. Please assist with PA. Thank you! documented in this encounter Plan of Treatment Upcoming Encounters Date Type Department Care Team (Late st Contact Info) Description 11/28/2024 11:30 AM EDT Medication Management [facility] MEDICINE [address] [place] [address] Crystal Vital PharmD 230 [place] [address] 12/22/2024 1:00 PM EDT Office Visit [facility] OPTOMETRY [address] [place] [address] Jenny Blanchard OD [address] [place] [address] 02/03/2025 1:00 PM EDT Office Visit [facility] MEDICINE 230 [place] [address] Nemo Savage, DERIVATIVES TRADER 230 [place] [address] documented as of this encounter Goals Goal [...] documented as of this encounter Care Teams Dry Transfer Worker Relationship Specialty Start Date End Date Nemo Savage FNP 230 [place] [address] PCP - General Family Medicine 04/14/22 Crsytal Vital, VerenaD 230 [place] [address] Pharmacist Internal Medicine 05/16/24 documented as of this encounter
--- OUTSIDE RECORDS SUMMARY | 2024-11-21 10:13 | XMS_ITS | Encounter Summary ---
Author Organization [employer] Address [address] [place] [address] 7 [place] [address] Care Team Providers Care Kinesiologist Name Role Phone [facility] Primary Care Provider [phone] Crystal Vital PharmD Unavailable [phone] Reason for Visit * Reason Comments Med Refill Encounter Details Date Type Department Care Team (Late st Contact Info) Description 08/26/2023 Refill [facility] MED & PEDS [address] [place] [address] [facility] 230 [place] [address] Essential hypertension Social History Tobacco Use Types [...] Description 11/28/2024 11:30 AM EDT Medication Management [facility] MEDICINE [address] [place] [address] Crystal Vital, PharmD 230 [place] [address] 12/22/2024 1:00 PM EDT Office Visit [facility] OPTOMETRY [address] [place] [address] Jenny Blanchard, OD [address] [place] [address] 02/03/2025 1:00 PM EDT Office Visit [facility] MEDICINE 230 [place] [address] Nemo Savage FNP 230 [place] [address] documented as of this encounter Visit Diagnoses Diagnosis Essential hypertension Unspecified essential hypertension documented in this encounter Additional Health Concerns Assessment Noted Time PHQ-9 Depression Total Score: 8 07/31/20 23 10:25 AM EST documented as of this encounter Care Teams Kinesiologist Relationship Specialty Start Date End Date Nemo Savage FNP 230 [place] [address] PCP - General Family Medicine 04/14/22 Crystal Vital, VerenaD [address] [place] [address] Pharmacist Internal Medicine 05/16/24 documented as of this encounter
--- OUTSIDE RECORDS SUMMARY | 2024-11-21 10:13 | XMS_ITS | Encounter Summary ---
Author Organization [employer] Address [address] [place] [address] 7 [place] [address] Care Team Providers Care Pest Control Operator Name Role Phone [facility] Primary Care Provider [phone] Crystal Vital PharmD Unavailable [phone] Reason for Visit * Reason Onset Date Comments Med Refill 08/01/2022 Encounter Details Date Type Department Care Team (Late st Contact Info) Description 08/01/2022 Telephone [facility] MEDICINE 230 [place], [place] [phone] [facility] 230 [place], [place] [phone] Med Refill Social History Tobacco Use Types [...] has trulicity .75mg, 1.5mg or 3mg. PCP SUPERVISOR SEAMING Evans documented in this encounter Plan of Treatment Upcoming Encounters Date Type Department Care Team (Late st Contact Info) Description 11/28/2024 11:30 AM EDT Medication Management [facility] MEDICINE [address] [place] [address] Crystal Vital, PharmD [address] [place] [address] 12/22/2024 1:00 PM EDT Office Visit [facility] OPTOMETRY [address] [place] [address] Jenny Blanchard, OD [address] [place] [address] 02/03/2025 1:00 PM EDT Office Visit [facility] MEDICINE [address] [place] [address] Nemo Savage FNP [address] [place] [address] documented as of this encounter Visit Diagnoses Not on filedocumented in this encounter Care Teams Pest Control Operator Relationship Specialty Start Date End Date Nemo Savage FNP [address] [place] [address] PCP - General Family Medicine 04/14/22 Crystal Vital, PharmD [address] [place] [address] Pharmacist Internal Medicine 05/16/24 documented as of this encounter
--- OUTSIDE RECORDS SUMMARY | 2024-11-21 10:13 | XMS_ITS | Encounter Summary ---
Author Organization [employer] Address [address] [place] [address] 7 [place] [address] Care Team Providers Care High School Science Teacher Name Role Phone [facility] Primary Care Provider [phone] Crystal Vital PharmD Unavailable [phone] Reason for Visit * Reason Comments Med Refill Encounter Details Date Type Department Care Team (Late st Contact Info) Description 03/22/2024 Refill [facility] MEDICINE 230 [place] [address] [facility] 230 [place] [address] Type 2 diabetes mellitus with hyperglycemia, with long-term current use of insulin ([facility]) Social History Tobacco Use Types Packs/Day Years [...] Description 11/28/2024 11:30 AM EDT Medication Management [facility] MEDICINE 230 [place] [address] Crystal Vital, PharmD 230 [place] [address] 12/22/2024 1:00 PM EDT Office Visit [facility] OPTOMETRY [address] [place] [address] Jenny Blanchard OD 267 [place] [address] 02/03/2025 1:00 PM EDT Office Visit [facility] MEDICINE 230 [place] [address] Nemo Savage FNP 230 [place] [address] documented as of this encounter Goals Goal Patient Goal Type Associated Problems Recent Progress Patient-Stated? Author Hemoglobin A1c < 7.5 Result Component 8.5(10/31/2024 1:39 PM EDT) No Crystal Vital, PharmD documented as of this encounter Visit Diagnoses Diagnosis Type 2 diabetes mellitus with hyperglycemia, with long-term current use of insulin ([facility]) documented in this encounter Additional Health Concerns Assessment Noted Time PHQ-9 Depression Total Score: 9 02/04/20 24 11:53 AM EDT documented as of this encounter Care Teams High School Science Teacher Relationship Specialty Start Date End Date Nemo Savage FNP 230 [place] [address] PCP - General Family Medicine 04/14/22 Crystal Vital, PharmD 230 [place] [address] Pharmacist Internal Medicine 05/16/24 documented as of this encounter
--- OUTSIDE RECORDS SUMMARY | 2024-11-21 10:13 | XMS_ITS | Encounter Summary ---
Author Organization [employer] Address [address] [place] [address] 7 [place] [address] Care Team Providers Care Home Health Caregiver Name Role Phone [facility] Primary Care Provider [phone] Crystal Vital PharmD Unavailable [phone] Reason for Visit * Reason Onset Date Comments Appointment Request 07/16/2023 Encounter Details Date Type Department Care Team ([facility] st Contact Info) Description 07/16/2023 Telephone [facility] MEDICINE 230 [place], [place] [phone] [facility] 230 [place], [place] [phone] Appointment Request Social History Tobacco Use Types [...] a physical appt because pt is overdue. Supervisor Motor Vehicle [employer] did not see anything available. If any questions please contact Sabrina at [phone]. documented in this encounter Plan of Treatment Upcoming Encounters Date Type Department Care Team ([facility] st Contact Info) Description 11/28/2024 11:30 AM EDT Medication Management [facility] MEDICINE 230 [place] [address] Crystal Vital, PharmD 230 [place] [address] 12/22/2024 1:00 PM EDT Office Visit [facility] OPTOMETRY [address] [place] [address] Jenny Blanchard, CARLINE [address] [place] [address] 02/03/2025 1:00 PM EDT Office Visit [facility] MEDICINE 230 [place] [address] Nemo Savage, OBSTETRICS/GYNECOLOGY NURSE 230 [place] [address] documented as of this encounter Visit Diagnoses Not on filedocumented in this encounter Additional Health Concerns Assessment Noted Time PHQ-9 Depression Total Score: 21 023 8:54 AM EST documented as of this encounter Care Teams Home Health Caregiver Relationship Specialty Start Date End Date Nemo Savage FNP 230 [place] [address] PCP - General Family Medicine 04/14/22 Crystal Vital, Yesika 230 [place] [address] Pharmacist Internal Medicine 05/16/24 documented as of this encounter
--- OUTSIDE RECORDS SUMMARY | 2024-11-21 10:13 | XMS_ITS | Encounter Summary ---
Author Organization [employer] Address [address] [place] [address] 7 [place] [address] Care Team Providers Care Polisher Aluminum Name Role Phone [facility] Primary Care Provider [phone] Crystal Vital PharmD Unavailable [phone] Encounter Details Date Type Department Care Team (Late st Contact Info) Description 07/23/2022 Abstract [facility] MEDICINE 230 [place] [address] [facility] 230 [place] [address] Social History Tobacco Use Types Packs/Day Years [...] Description 11/28/2024 11:30 AM EDT Medication Management [facility] MEDICINE 230 [place] [address] Crystal Vital, PharmD 230 [place] [address] 12/22/2024 1:00 PM EDT Office Visit [facility] OPTOMETRY [address] [place] [address] Jenny Blanchard, OD [address] [place] [address] 02/03/2025 1:00 PM EDT Office Visit [facility] MEDICINE 230 [place] [address] Nemo Savage FNP 230 [place] [address] documented as of this encounter Visit Diagnoses Not on filedocumented in this encounter Care Teams Polisher Aluminum Relationship Specialty Start Date End Date Nemo Savage FNP [address] [place] [address] PCP - General Family Medicine 04/14/22 Crystal Vital PharmD [address] [place] [address] Pharmacist Internal Medicine 05/16/24 documented as of this encounter
--- OUTSIDE RECORDS SUMMARY | 2024-11-21 10:13 | XMS_ITS | Encounter Summary ---
Author Organization [employer] Address [address] [place] [address] 7 [place] [address] Care Team Providers Care Shactor Helper Name Role Phone Nemo Savage SOFTWARE DEVELOPMENT TEST ENGINEER Primary Care Provider [phone] Crystal Vital PharmD Unavailable [phone] Reason for Referral * Consultation (Routine) - Closed Specialty Diagnoses / Procedures Referred By Jordan t Referred To Contact Pharmacy Diagnoses Type 2 diabetes mellitus with hyperglycemia, with long-term current use of insulin (CMS/HCC) Mackenzie Callahan MD 230 [place] [address] Phone: tel: fax: Referral ID Status Reason Start Date Expiration Date V isits Requested Visits Authorized [id number] Closed Consult and Treat 06/10/2024 06/10/2025 6 6 Encounter Details Date Type Department Care Team (Late st Contact Info) Description 06/10/2024 Orders Only [facility] MEDICINE 230 [place], [place] [phone] Mackenzie Callahan MD 230 [place], [place] [phone] Type 2 diabetes mellitus with hyperglycemia, with [...] Description 11/28/2024 11:30 AM EDT Medication Management [facility] MEDICINE 230 [place] [address] Crystal Vital, PharmD 230 [place] [address] 12/22/2024 1:00 PM EDT Office Visit [facility] OPTOMETRY [address] [place] [address] Jenny Blanchard, CARLINE [address] [place] [address] 02/03/2025 1:00 PM EDT Office Visit [facility] MEDICINE 230 [place] [address] Nemo SavageBERRY 230 [place] [address] Scheduled Referrals Name Type Priority Associated Diagnoses Orde r Schedule Referral to Pharmacy CDTM Outpatient Referral Routine Type 2 diabetes mellitus with hyperglycemia, with long-term current use of insulin ([facility]) Ordered: 06/10/2024 documented as of this encounter Goals Goal Patient Goal Type Associated Problems Recent Progress Patient-Stated? Author Hemoglobin A1c < 7.5 Result Component 8.5(10/31/2024 1:39 PM EDT) No Crystal Vital, VerenaD documented as of this encounter Visit Diagnoses Diagnosis Type 2 diabetes mellitus with hyperglycemia, with long-term current use of insulin ([facility])- Primary documented in this encounter Additional Health Concerns Assessment Noted Time PHQ-9 Depression Total Score: 9 02/04/20 24 11:53 AM EDT documented as of this encounter Care Teams Shactor Helper Relationship Specialty Start Date End Date Janette BERRY [place] [address] PCP - General Family Medicine 04/14/22 Crystal Vital, VerenaD [address] [place] [address] Pharmacist Internal Medicine 05/16/24 documented as of this encounter
--- OUTSIDE RECORDS SUMMARY | 2024-11-21 10:13 | XMS_ITS | Encounter Summary ---
Author Organization [employer] Address [address] [place] [address] 7 [place] [address] Care Team Providers Care Site Safety Representative Name Role Phone Nemo Savage NETWORK SECURITY ADMINISTRATOR Primary Care Provider [phone] Crystal Vital PharmD Unavailable [phone] Encounter Details Date Type Department Care Team (Late Contact Info) Description 10/27/2022 Orders Only [facility] CHC MED & PEDS [address] [place] [address] Neyda Bray LPN Social History Tobacco Use [...] Upcoming Encounters Date Type Department Care Team ([facility] Contact Info) Description 11/28/2024 11:30 AM EDT Medication Management [facility] MEDICINE 230 [place] [address] Crystal Vital, Yesika 230 [place] [address] 12/22/2024 1:00 PM EDT Office Visit [facility] OPTOMETRY [address] [place] [address] Jenny Blanchard, OD 267 [place] [address] 02/03/2025 1:00 PM EDT Office Visit [facility] MEDICINE 230 [place] [address] Nemo Savage FNP 230 [place] [address] documented as of this encounter Visit Diagnoses Not on filedocumented in this encounter Additional Health Concerns Assessment Noted Time PHQ-9 Depression Total Score: 21 023 8:54 AM EST documented as of this encounter Care Teams Site Safety Representative Relationship Specialty Start Date End Date Nemo Savage FNP [address] [place] [address] PCP - General Family Medicine 04/14/22 Crystal Vital, Yesika [address] [place] [address] Pharmacist Internal Medicine 05/16/24 documented as of this encounter
--- OUTSIDE RECORDS SUMMARY | 2024-11-21 10:13 | XMS_ITS | Encounter Summary ---
Author Organization [employer] Address [address] [place] [address] 7 [place] [address] Care Team Providers Care Digital Design Engineer Name Role Phone [facility] Primary Care Provider [phone] Crystal Vital PharmD Unavailable Reason for Visit * Reason Comments Med Refill Encounter Details Date Type Department Care Team (Late st Contact Info) Description 11/16/[address] [facility] CHC MED & PEDS [address] [place] [address] [facility] 230 [place] [address] Migraine without status migrainosus, not intractable, unspecified migraine type Social History Tobacco Use Types Packs/Day Years [...] got money to buy more: Sometimes True 10/18/ 2023 Within the past 12 months,th e food [...] Description 11/28/2024 11:30 AM EDT Medication Management [facility] MEDICINE [address] [place] [address] Crystal Vital, PharmD [address] [place] [address] 12/22/2024 1:00 PM EDT Office Visit [facility] OPTOMETRY [address] [place] [address] Jenny Blanchard OD [address] [place] [address] 02/03/2025 1:00 PM EDT Office Visit [facility] MEDICINE 230 [place] [address] Nemo Savage FNP [address] [place] [address] documented as of this encounter Goals Goal Patient Goal Type Associated Problems Recent Progress Patient-Stated? Author Hemoglobin A1c < 7.5 Result Component 8.5(10/31/2024 1:39 PM EDT) No Crystal Vital, PharmD documented as of this encounter Visit Diagnoses Diagnosis Migraine without status migrainosus, not intractable, unspecified migraine type documented in this encounter Additional Health Concerns Assessment Noted Time PHQ-9 Depression Total Score: 8 11/01/19 25 1:04 PM EDT documented as of this encounter Care Teams Digital Design Engineer Relationship Specialty Start Date End Date Manlius BERRY Chester [address] [place] [address] PCP - General Family Medicine 04/14/22 Crystal Vital, PharmD 230 [place] [address] Pharmacist Internal Medicine 05/16/24 documented as of this encounter
--- OUTSIDE RECORDS SUMMARY | 2024-11-21 10:13 | XMS_ITS | Encounter Summary ---
Author Organization [employer] Address [address] [place] [address] 7 [place] [address] Care Team Providers Care Lint Cleaner Name Role Phone Nemo Savage CHUCKING MACHINE OPERATOR Primary Care Provider [phone] Crystal Vital PharmD Unavailable [phone] Reason for Visit * Reason Comments Med Refill Encounter Details Date Type Department Care Team (Late st Contact Info) Description 11/14/2024 Refill [facility] MEDICINE 230 [place] [address] Crystal Vital, PharmD 230 [place], [place] [phone] Type 2 diabetes mellitus with hyperglycemia, with long-term current use of insulin ([facility]) Social History Tobacco Use Types Packs/Day Years [...] 11:30 AM EDT Medication Management [facility] MEDICINE [address] [place] [address] Crystal Vital, PharmD [address] [place] [address] 12/22/2024 1:00 PM EDT Office Visit [facility] OPTOMETRY [address] [place] [address] Jenny Blanchard OD [address] [place] [address] 02/03/2025 1:00 PM EDT Office Visit [facility] MEDICINE [address] [place] [address] Nemo Savage FNP [address] [place] [address] documented as of this encounter Goals Goal Patient Goal Type Associated Problems Recent Progress Patient-Stated? Author Hemoglobin A1c < 7.5 Result Component 8.5(10/31/2024 1:39 PM EDT) No Crystal Vital, PharmD documented as of this encounter Visit Diagnoses Diagnosis Type 2 diabetes mellitus with hyperglycemia, with long-term current use of insulin ([facility]) documented in this encounter Additional Health Concerns Assessment Noted Time PHQ-9 Depression Total Score: 8 11/01/19 25 1:04 PM EDT documented as of this encounter Care Teams Lint Cleaner Relationship Specialty Start Date End Date Nemo Savage FNP [address] [place] [address] PCP - General Family Medicine 04/14/22 Crystal Vital, VerenaD [address] [place] [address] Pharmacist Internal Medicine 05/16/24 documented as of this encounter
--- OUTSIDE RECORDS SUMMARY | 2024-11-21 10:13 | XMS_ITS | Encounter Summary ---
Author Organization [employer] Address [address] [place] [address] 7 [place] [address] Care Team Providers Care Lower School Spanish Teacher Name Role Phone Nemo Savage CERTIFICATION TECHNICIAN Primary Care Provider [phone] Crystal Vital PharmD Unavailable Encounter Details Date Type Department Care Team (Late Contact Info) Description 05/01/2023 Orders Only [facility] CHC MED & PEDS [address] [place] [address] Kirsten Allen LPN Social History Tobacco Use [...] Department Care Team (Late Contact Info) Description 11/28/2024 11:30 AM EDT Medication Management [facility] MEDICINE 230 [place], [place] [phone] Crystal Vital, PharmD 230 [place], [place] [phone] 12/22/2024 1:00 PM EDT Office Visit [facility] OPTOMETRY [address] [place], [place] [phone] Jenny Blanchard OD [address] [place] [address] 02/03/2025 1:00 PM EDT Office Visit [facility] MEDICINE 230 [place] [address] Nemo Savage FNP [address] [place] [address] documented as of this encounter Visit Diagnoses Not on filedocumented in this encounter Additional Health Concerns Assessment Noted Time PHQ-9 Depression Total Score: 21 023 8:54 AM EST documented as of this encounter Care Teams Lower School Spanish Teacher Relationship Specialty Start Date End Date Nemo Savage FNP [address] [place] [address] PCP - General Family Medicine 04/14/22 Crystal Vital, VerenaD [address] [place] [address] Pharmacist Internal Medicine 05/16/24 documented as of this encounter
--- OUTSIDE RECORDS SUMMARY | 2024-11-21 10:13 | XMS_ITS | Encounter Summary ---
Author Organization [employer] Address [address] [place] [address] 7 [place] [address] Care Team Providers Care Outreach Professional Name Role Phone Nemo Savage CONTINUOUS ABSORPTION PROCESS OPERATOR Primary Care Provider [phone] Crystal Vital PharmD Unavailable [phone] Encounter Details Date Type Department Care Team (Late st Contact Info) Description 02/25/2024 Orders Only [facility] MEDICINE 230 [place] [address] Yolette Brown NP [address] [place] [address] Social History Tobacco Use Types Packs/Day Years [...] Description 11/28/2024 11:30 AM EDT Medication Management [facility] MEDICINE [address] [place] [address] Crystal Vital, PharmD 230 [place] [address] 12/22/2024 1:00 PM EDT Office Visit [facility] OPTOMETRY [address] [place] [address] Jenny Blanchard, OD [address] [place] [address] 02/03/2025 1:00 PM EDT Office Visit [facility] MEDICINE 230 [place] [address] Janette, Nemo, CONTINUOUS ABSORPTION PROCESS OPERATOR 230 [place] [address] documented as of this encounter Goals Goal [...] documented as of this encounter Care Teams Outreach Professional Relationship Specialty Start Date End Date Nemo SavageBERRY 230 [place] [address] PCP - General Family Medicine 04/14/22 Crystal Vital PharmD 230 [place] [address] Pharmacist Internal Medicine 05/16/24 documented as of this encounter
--- OUTSIDE RECORDS SUMMARY | 2024-11-21 10:14 | XMS_ITS | Encounter Summary ---
Author Organization [employer] Address [address] [place] [address] [address] [place] [address] Care Team Providers Care Compound Finisher Name Role Phone Nemo Savage SHIP PILOT Primary Care Provider [phone] Crystal Vital PharmD Unavailable [phone] Reason for Visit * Reason Comments Med Refill Encounter Details Date Type Department Care Team (Late Contact Info) Description 04/20/2023 Refill [facility] MEDICINE [address] [place], [place] [phone] Gokul Weinstein AGNP Social History Tobacco Use [...] Description 11/28/2024 11:30 AM EDT Medication Management [facility] MEDICINE [address] [place], [place] [phone] Crystal Vital, PharmD [address] [place] [address] 12/22/2024 1:00 PM EDT Office Visit [facility] OPTOMETRY [address] [place] [address] Jenny Blanchard OD [address] [place] [address] 02/03/2025 1:00 PM EDT Office Visit [facility] MEDICINE [address] [place] [address] Nemo Savage FNP [address] [place] [address] documented as of this encounter Visit Diagnoses Not on filedocumented in this encounter Additional Health Concerns Assessment Noted Time PHQ-9 Depression Total Score: 21 023 8:54 AM EST documented as of this encounter Care Teams Compound Finisher Relationship Specialty Start Date End Date Nemo Savage FNP [address] [place] [phone] PCP - General Family Medicine 04/14/22 Crystal Vital, VerenaD [address] [place] [address] Pharmacist Internal Medicine 05/16/24 documented as of this encounter
--- OUTSIDE RECORDS SUMMARY | 2024-11-21 10:14 | XMS_ITS | Clinical Summary ---
Author Organization [employer] Address [address] [place] [address] 7 [place] [address] Care Team Providers Care Carbon Paste Mixer Operator Name Role Phone Nemo Savage WAITER/WAITRESS FORMAL Primary Care Provider [phone] Crystal Vital PharmD Unavailable Allergies Active Allergy [...] tablet by mouth at bed time. Active levalbuterol (Xopenex) 45 MCG/ACT inhaler INHALE 1-2 PUFFS BY MOUTH EVERY 6 HOURS NEEDED 023 Active isosorbide mononitrate ER (Imdur) 30 MG 24 hr tablet Take 30 mg by mouth in the morning. 023 Active oxybutynin XL (Ditropan-XL) 10 MG 24 hr tablet Take 10 mg by mouth in the morning. 023 Active Blood Glucose Monitoring Suppl (FreeStyle Lite) deviceIndicatio ns:Type 2 diabetes mellitus with hyperglycemia, with long-term current use of insulin ([facility]) Inject 1 each under the skin 4 times daily. Test daily before all meals/snacks and once before bedtime. 1 each Active Hydrocortisone, Perianal, 1 % creamIndication s:Rash APPLY TO THE AFFECTED AREA(S) RECTALLY TWICE DAILY FOR 7 DAYS 28.4 g 2 Active glucose blood (FreeStyle Precision Noble Test) test stripIndication s:Type 2 diabetes mellitus with hyperglycemia, with long-term current use of insulin ([facility]) Use with freestyle josé reader to monitor blood glucose as needed 50 each 024 2024 Active albuterol (2.5 MG/3ML) 0.083% nebulizer [...] hyperglycemia, with long-term current use of insulin ([facility]) Use as instructed with insulin use four [...] BY MOUTH EVERY EVENING 90 tablet 2 Active senna (Senokot) 8.6 MG tabletIndicatio ns:Chronic idiopathic constipation TAKE 1 TABLET BY MOUTH AT BEDTIME 90 tablet 3 Active TRUEplus Lancets 33G miscIndications :Type 2 diabetes mellitus with hyperglycemia, with long-term current use of insulin ([facility]) TEST BLOOD SUGAR FOUR TIMES DAILY 100 each 11 Active diphenhydrAMINE (BENADryl) 25 MG tabletIndicatio ns:Rash,Allergi c reaction to fruit Take 1 tablet (25 mg) by mouth every 6 (six) hours if needed for itching. 30 tablet 024 Active hydrocortisone 1 % ointmentIndicat ions:Rash,Aller gic reaction to fruit Apply topically 2 times daily. 28 g Active glucose blood (FREESTYLE LITE) test stripIndication s:Type 2 diabetes mellitus with hyperglycemia, with long-term current use of insulin ([facility]) TEST BLOOD SUGAR FOUR TIMES DAILY 100 strip 11 Active Continuous Glucose Sensor (FreeStyle José 2 Sensor) miscIndications :Type 2 diabetes mellitus with hyperglycemia, with long-term current use of insulin ([facility]) USE DIRECTED TO TEST BLOOD SUGAR. CHANGE EVERY 14 DAYS 2 each 5 Active EPINEPHrine (Epipen) 0.3 MG/0.3ML injection syringeIndicati [...] 2024 Active D3 Super Strength 50 MCG (2000 UT) capsuleIndicati ons:Vitamin D deficiency TAKE 1 CAPSULE BY MOUTH EVERY MORNING 90 capsule 3 Active pantoprazole (ProtoNix) 40 MG EC tabletIndicatio ns:Dyspepsia TAKE 1 TABLET BY MOUTH TWICE DAILY IN THE MORNING AND IN THE EVENING 180 tablet 3 024 Active metFORMIN (Glucophage) 1000 MG tabletIndicatio ns:Type 2 diabetes mellitus with hyperglycemia, with long-term current use of insulin (CMS/HCC) TAKE 1 TABLET BY MOUTH TWICE DAILY IN THE MORNING AND IN THE EVENING 180 tablet 024 Active levothyroxine (Synthroid, Levoxyl) 200 MCG tabletIndicatio ns:Hypothyroidi 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's thyroiditis TAKE 1 TABLET BY MOUTH EVERY MORNING BEFORE BREAKFAST 90 tablet 1 024 Active atorvastatin (Lipitor) 80 MG tablet TAKE 1 TABLET BY MOUTH EVERY MORNING 90 tablet 024 Active polycarbophil (Fiber-Lax) 625 MG tabletIndicatio ns:Chronic idiopathic constipation TAKE 1 TABLET BY MOUTH EVERY MORNING WITH A FULL GLASS OF WATER 90 tablet 025 Active gabapentin (Neurontin) 300 MG capsuleIndicati ons:Fibromyalgi a TAKE 1 CAPSULE BY MOUTH THREE TIMES DAILY IN THE MORNING, EVENING, AND BEDTIME 90 capsule 025 Active triamcinolone (Kenalog) 0.025 % creamIndication s:Dry skin dermatitis MIX WITH 16 OUNCES CERAVE CREAM DIRECTED AND APPLY TOPICALLY TWICE DAILY 80 g 025 Active Tirzepatide (Mounjaro) 10 MG/0.5ML solution auto-injectorIn dications:Type 2 diabetes mellitus with hyperglycemia, with long-term current use of insulin (CMS/HCC) Inject 10 mg under the skin 1 (one) time per week. 2 mL 025 Active triamcinolone (Kenalog) 0.1 % ointmentIndicat ions:Rash Apply topically 2 times daily. For 2 weeks 30 g 025 Active insulin lispro (HumaLOG) 100 UNIT/ML injectionIndica tions:Type 2 diabetes mellitus with hyperglycemia, with long-term current use of insulin (CMS/HCC) INJECT THREE TIMES DAILY PER SLIDING SCALE (IF BLOOD SUGAR IS 141-180: 8 UNITS, 181-220: 8 UNITS, 221-260: 10 UNITS, 261-300: 12 UNITS, >300: 14 UNITS) 15 mL 025 Active glucose (Glutose) 40 % gel oral gelIndications: Type 2 diabetes mellitus with hyperglycemia, with long-term current use of insulin (CMS/HCC) Take 15 g by mouth if needed for low blood sugar. 45 g 025 Active insulin glargine (Lantus SoloStar) 100 UNIT/ML penIndications: Type 2 diabetes mellitus with hyperglycemia, with long-term current use of insulin ([facility]) Inject subcutaneously 46 units once daily 15 mL 3 025 Active topiramate (Topamax) 25 MG tabletIndicatio ns:Migraine without status migrainosus, not intractable, unspecified migraine type TAKE 1 TABLET BY MOUTH AT BEDTIME 30 tablet 2 025 Active glucose 4 g chewable tabletIndicatio ns:Type 2 diabetes mellitus with hyperglycemia, with long-term current use of insulin ([facility]) Chew 4 tablets (16 g) if needed for low blood sugar. 50 tablet 12 022 2024 Discontinued(O ther) Tirzepatide (Mounjaro) 7.5 MG/0.5ML solution auto-injectorIn dications:Type 2 diabetes mellitus with hyperglycemia, with long-term current use of insulin ([facility]) Inject 7.5 mg under the skin 1 (one) time per week. 2 mL 3 024 2024 Discontinued insulin glargine (Lantus SoloStar) 100 UNIT/ML penIndications: Type 2 diabetes mellitus with hyperglycemia, with long-term current use of insulin ([facility]) Inject subcutaneously 40 units once daily 15 mL 3 024 2024 Discontinued(D ose adjustment) triamcinolone (Kenalog) 0.025 % creamIndication s:Dry skin dermatitis Apply topically 2 times daily. Mix entire tube with 16oz cera ve jar as instructed. Apply from neck down once daily 80 g 1 024 2024 Discontinued insulin lispro (HumaLOG) 100 UNIT/ML injectionIndica tions:Type 2 diabetes mellitus with hyperglycemia, with long-term current use of insulin ([facility]) INJECT THREE TIMES DAILY PER SLIDING SCALE (IF BLOOD SUGAR IS 141-180: 8 UNITS, 181-220: 10 UNITS, 221-260: 12 UNITS, 261-300: 14 UNITS, >300: 16 UNITS) 15 mL 3 025 2024 Discontinued(R eorder (will not trigger notification to Pharmacy)) topiramate (Topamax) 25 MG tabletIndicatio ns:Migraine without status migrainosus, not intractable, unspecified migraine type TAKE 1 TABLET BY MOUTH AT BEDTIME 30 tablet 1 025 2024 Discontinued predniSONE (Deltasone) 20 MG tabletIndicatio ns:Productive cough Take 1 tablet (20 mg) by mouth Once per day for 5 days. 5 tablet 025 2024 Active Problems Problem Noted Date Diagnosed Date Rash 07/18/2024 Assessment & Plan (07/18/2024 2:34 PM EST): ED precautions reviewed benadryl+ prednisone Hydrocortisone for skink itchiness apply on affected area BID no more than 2 weeks Allergic reaction to fruit 07/18/2024 Bilateral shoulder pain 02/04/2024 Postural dizziness 08/21/2023 Overview (08/21/2023): 1. Followed by Dr. Love at [facility] for similar sx. Last visit 02/2023 with unremarkable echocardiogram and LE venous duplex ultrasound with mild reflux otherwise unremarkable. Plan for stress test with follow up after. EKG with sinus bradycardia Orthostatic vital signs negative although HR persistently bradycardic Migraine without status migrainosus, not intract able 01/27/2023 Overview (04/28/2023): ?? Topiramate 25mg daily ?? Previously followed by [facility] neurology, lost to follow up Assessment & [...] Immunizations: Declines all vaccines today Vision: 03/2023- [facility] HIV: Neg 2021 Hepatitis:Neg 2016 Assessment & [...] covid booster, declines shingles today Vision: 10/2021 [facility] Dental: HIV: Neg 2021 Hepatitis:Neg 2016 Coronary artery disease invo lving lummi heart without angina pectoris 07/22/2022 Overview (02/04/2024): [...] amlodipine 5mg ?? Followed by [facility] CV Dr. Love for hx of CP [...] Metformin 1000mg b.I.d Maintenance: Eye Exam: 03/2023 [facility] Diabetic foot exam:12/2023 RISK: 1 Encouraged regular [...] (A) 01/26/2023 ?? Pt followed closely by [facility] endocrinology ?? Continue current plan as directed [...] improve medication adherence Maintenance: Eye Exam: 10/2021 [facility] Diabetic foot exam:03/2022, RISK: 1 Microalbumin: 03/2022, [...] F/U 1 month Maintenance: Eye Exam: 10/2021 [facility] Diabetic foot exam:03/2022, RISK: 1 Microalbumin: 03/2022, [...] Encounters Date Type Department Care Team Description 11/21/2024 Refill [facility] MEDICINE [address] [place] [address] Janette, Nemo, WAITER/WAITRESS FORMAL Rash 11/18/2024 Telephone [facility] MEDICINE [address] [place] [address] Crystal Vital, PharmD 11/16/2024 Refill [facility] [address] [place] [address] Nemo Savage FNP Migraine without status migrainosus, not intractable, unspecified migraine type 11/14/2024 Travel 11/14/2024 Refill [facility] MEDICINE [address] [place] [address] Crystal Vital, PharmD Type 2 diabetes mellitus with hyperglycemia, with long-term current use of insulin ([facility]) 11/02/2024 Telephone [facility] MEDICINE [address] [place] [address] Delilah Melchor RN Results 10/31/2024 1:00 PM EDT Office Visit [place] [address] [place] [address] Nemo Savage FNP Type 2 diabetes mellitus with hyperglycemia, with long-term current use of insulin ([facility]) (Primary Dx); Productive cough; Rash; 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; Dietary counseling; Exercise counseling; Class 2 severe obesity due to excess calories with serious comorbidity and body mass index (BMI) of 38.0 to 38.9 in adult (CMS/HCC) 10/31/2024 Travel 10/28/2024 Population Health Risk Score [facility] () Department [address] [place] [phone] Provider, Population Health Generic 10/24/2024 Patient Outreach [facility] MEDICINE [address] [place] [address] Nemo Savage FNP Pre-visit Planning ((Unable to reach for PVP screening, LVM)) 10/22/2024 Refill [facility] MEDICINE [address] [place] [address] Nemo Savage FNP Dry skin dermatitis 10/16/2024 Refill [facility] [address] [place] [address] Nemo Savage FNP Fibromyalgia 09/27/2024 Refill [facility] MEDICINE [address] [place] [address] Nemo Savage FNP Chronic idiopathic constipation 08/26/2024 Refill [facility] [address] [place] [address] Nemo Savage FNP Fibromyalgia 08/25/2024 Refill [facility] [address] [place] [address] Nemo Savage FNP Migraine without status migrainosus, not intractable, unspecified migraine type 08/23/2024 Refill [facility] [address] [place], [place] [phone] Nemo Savage [facility] Type 2 diabetes mellitus with hyperglycemia, with long-term current use of insulin ([facility]) from Last 3 Months Immunizations Name Administration [...] the past 12 months, has t he proteonomix, gas, oil or water company threatened to [...] Sign Reading Time Taken Comments Blood Pressure 120/60 11/14/2024 1:12 PM EDT Pulse 82 11/14/2024 1:12 PM EDT Temperature 36.6 ??C (97.8 ??F) [...] Description 11/28/2024 11:30 AM EDT Medication Management [facility] MEDICINE [address] [place] [address] Crystal Vital, PharmD [address] [place] [address] 12/22/2024 1:00 PM EDT Office Visit [facility] OPTOMETRY [address] [place] [address] Jenny Blanchard, OD [address] [place] [address] 02/03/2025 1:00 PM EDT Office Visit [facility] MEDICINE [address] [place] [address] [place], Nemo, WAITER/WAITRESS FORMAL [address] [place] [address] Health Maintenance Due Date Last Done Comments [...] Depression Screening 10/31/2025 10/31/2024, 11/01/19 Tobacco Screening 11/02/2025 11/02/2024 Mammogram 12/16/2025 12/17/2023, 10/15, 04/29/2022, Additional history [...] hyperglycemia, with long-term current use of insulin ([facility]) POCT GLYCATED HEMOGLOBIN, TOTAL Routine 10/31/2024 1:39 PM EDT Type 2 diabetes mellitus with hyperglycemia, with long-term current use of insulin ([facility]) ALBUMIN, RANDOM URINE W/CREATININE Routine 06/21/2024 10:42 [...] PM EDT Narrative 10/31/2024 2:20 PM EDT ?[facility] ?[address] ?[place] [address] ?XRay Report ? Signed ? Patient: Carrasquillo Tex,Vicky ?MR#: M ?? [id number] ? : 1965 ?Acct:[id number] ? Age/Sex: 59 / F ?ADM Date: 10/31/24 ? Loc: HO.HHCX ? Attending Dr: Nemo Savage WAITER/WAITRESS FORMAL ? Ordering Physician: Nemo Savage WAITER/WAITRESS FORMAL ?? Date of Service: 10/31/24 ?? Procedure(s): XR chest 2V ?? Accession Number(s): [id number] ? cc: Nemo Savage WAITER/WAITRESS FORMAL ? EXAMINATION: ??XR CHEST 2 VIEWS ? [...] ??Shaggy Chapman MD ??10/31/2024 02:18 PM EDT ?? RP ? Dictated By: ?Shaggy Chapman MD ? Signed By: ?<Electronically signed by Shaggy Chapman MD in OV> ?10/31/24 1418 ? DD/ 1348 ? TD/TT: 10/31/24 1400 ? Eyedotter: ? Procedure Note Donarturonaelydia, Image - 10/31/[address] [address] XRay Report Signed Patient: Vicky StacyMR#: M [id number] : 1965Acct:[id number] Age/Sex: 59 / FADM Date: 10/31/24 Loc: HO.HHCX Attending Dr: Nemo Savage WAITER/WAITRESS FORMAL Ordering Physician: Nemo Savage [facility] Date of Service: 10/31/24 Procedure(s): XR chest 2V Accession Number(s): [id number] cc: Nemo Savage [facility] EXAMINATION: XR CHEST 2 VIEWS HISTORY: 59 [...] 10/31/24 1418 DD/ 1348 TD/TT: 10/31/24 1400 Eyedotter: [facility] WAITER/WAITRESS FORMAL IMG XR PROCEDURES Final Resul t * (ABNORMAL) POCT HGB A1C (10/31/2024 1:39 PM EDT) Hemoglobin A1C 8.5(A) 4.0 - 6.0 % QC Media Lot # [id number] Blood 10/31/2024 1:39 PM EDT [facility] POINT OF CARE TEST ENTER/EDIT ORDERABLES Final Result * (ABNORMAL) POCT Glucose (10/31/2024 1:39 PM EDT) Pathologist [facility] Glucose Blood, POC 345(A) 60 - 200 mg/dL Blood Capillary blood specimen / Unknown 10/31/2024 1:39 PM EDT Result [facility] POINT OF CARE TEST ENTER/EDIT ORDERABLES Final Result * Albumin, Random Urine W/Creatinine (06/21/2024 10:42 AM EST) Pathologist [facility] Creatinine, Urine 218.18 mg/dL [facility] Microalbumin Urine 11.0 mg/L [facility] Microalbum Creatinine Ratio Ur 5.0 <30 ug/mg cr [facility] Comment:Albumin/Creatinine R atio Reference Ranges: Normal: < 30 ug/mg creatinine Microalbuminuria: 30 - 300 ug/mg creatinineClinical Albuminuria: > 300 ug/mg creatinine 06/21/2024 10:4 2 AM EST 06/21/2024 1:17 PM EST Result [facility] LAB URINE ORDERABLES Final Re sult [facility] [address] [place] [phone] * (ABNORMAL) Lipid Panel, Standard (06/21/2024 10:42 AM EST) Triglycerides 144 <150 mg/dL [facility] Comment:Desirable Triglyceri de: less than 150 mg/dLBorderline High Triglyceride 150-199 mg/dLHigh Triglyceride: 200-499 mg/dLVery High Triglyceride: greater than or equal to 5OO mg/dL Cholesterol 254(H) <200 mg/dL [facility] Comment:Desirable Cholestero l: less than 200 mg/dLBorderline High Cholesterol: 200-239 mg/dLHigh Cholesterol: greater than 239 mg/dL LDL Cholesterol Calculated 180(H) <100 mg/dL [facility] Comment:Desirable LDL: less than 100 mg/dLNear Optimal/Above Optimal LDL: 110- 129 mg/dLBorderline High LDL: 130-159 mg/dLHigh LDL: 160-189 mg/dLVery High LDL: greater than or equal to 190 mg/dL HDL Cholesterol 46 >40 mg/dL [facility] Comment:Desirable HDL: great er than 40 mg/dL Note: This HDL assay may give artificially low results in patients with liver disease. 06/21/2024 10:4 2 AM EST 06/21/2024 1:19 PM EST [facility] WAITER/WAITRESS FORMAL LAB BLOOD ORDERABLES Final Re sult [facility] [address] [place] [phone] * BI Mammogram Diagnostic Tomosynthesis Bilateral (12/17/2023 2:05 PM EDT) Anatomical Region Laterality Modality Breast Bilateral Mammography 12/17/2023 2:05 PM EDT Narrative 12/17/2023 2:47 PM EDT ? [facility] [place] ? [address] ?[place] [address] ? Mammography Report ? Signed ? Patient: Carrasquillo Tex,Vicky ?MR#: M ?? [id number] ? : 1965 ?Acct:[id number] ? Age/Sex: 58 / F ?ADM Date: 05/02/24 ? Loc: HO.MAMMO ? Attending Dr: Nemo Savage WAITER/WAITRESS FORMAL ? Ordering Physician: Nemo Savage WAITER/WAITRESS FORMAL ?Results: 2Beni ?? gn Findings ? Date of Service: 12/17/23 ?Follow Up: 1 Year From Orig ?? inal Mammogram ? Procedure(s): MM tomosynthesis diagnostic BI ?? Accession Number(s): [id number] ? cc: Nemo Savage WAITER/WAITRESS FORMAL ? EXAMINATION: ?? MM DIAGNOSTIC DIGITAL BREAST [...] 1443 ? DD/ 1405 ? TD/TT: ? Eyedotter: ? Procedure Note Angie Zamarripa - 12/17/2023 [facility] [address] [place] [address] [place] [address] Mammography Report Signed Patient: Vicky Stacy#: M [id number] : 1965Acct:[id number] Age/Sex: 58 / FADM Date: 12/17/23 Loc: GABI Attending Dr: Nemo Savage WAITER/WAITRESS FORMAL Ordering Physician: Nemo Savage FNPResults: 2Beni gn Findings Date of Service: 12/17/23Follow Up: 1 Year From Orig inal Mammogram Procedure(s): MM tomosynthesis diagnostic BI Accession Number(s): [id number] cc: [place] WAITER/WAITRESS FORMAL EXAMINATION: MM DIAGNOSTIC DIGITAL BREAST TOMOSYNTHESIS, BILATERAL [...] in OV> 12/17/23 1443 DD/ 1405 TD/TT: Eyedotter: [facility] WAITER/WAITRESS FORMAL IMG BI PROCEDURES Final Resul t * HIV 1/2 ANTIGEN/ANTIBODY,FOURTH GENERATION W/RFL (04/07/2022 9:59 AM EDT) Pathologist [facility] HIV-1/2 ANTIGEN AND ANTIBODIES, 4TH GENERATION W/ REFLEX NON-REACT RAMYA NON-REACT RAMYA [facility] Comment: HIV-1 antigen and HIV-1/HIV-2 [...] ? For additional information please refer to http://education.Zillow/faq/YMP624 (This link is being provided for informational/ educational purposes only.) ? The performance of this assay has not been clinically validated in patients less than 2 years old. ?? 04/07/2022 9:59 AM EDT Joy Farhana TORNADO CHASER LAB BLOOD ORDERABLES Final Res ult [facility] [address] * (ABNORMAL) HPV mRNA E6/E7 (07/25/2020 10:15 AM EST) Pathologist [facility] HPV nRNA E6/E7 Detected (A) Not Detected [facility] Comment: This test was performed using the APTIMA HPV Assay ([employer] This assay detects E6/E7 viral messenger RNA (mRNA) from 14 high-risk HPV types (16,18,31,33,35,39,45,51,52,56,58,59,66,68). ?? The analytical performance characteristics of this assay have been determined by [employer]. The modifications have not been cleared or approved by the FDA. This assay has been validated pursuant to the CLIA regulations and is used for clinical purposes. 07/25/2020 10:1 5 AM EST Beverly León CNM LAB BLOOD ORDERABLES Nevaeh fischer Result [facility] [address] * Pap Smear (07/25/2020) Pap smear Preformed Historical Provider MD HEALTH MAINTENANCE Final Result from Last 3 Months or Most Recently Relevant to Health Maintenance Insurance Care Teams Carbon Paste Mixer Operator Relationship Specialty Start Date End Date Nemo Savage FNP [address] [place] [phone] PCP - General Family Medicine 04/14/22 Crystal Vital, PharmD [address] [place] [phone] Pharmacist Internal Medicine 05/16/24
--- OUTSIDE RECORDS SUMMARY | 2024-11-21 10:14 | XMS_ITS | Clinical Summary ---
Author Organization [facility] Address [address] [place] [address] Phone Care Team Providers Care Long Chain Beamer Name Role Phone [place] Nemo Primary Care Provider [phone] Allergies Active Allergy Reactions Criticality Noted Date Comments Pineapple Anaphylaxis,Hives,Swelling High 5 Medications albuterol 2.5 mg /3 mL (0.083 [...] mg total) by mouth at bedtime. Active bisacodyL (DULCOLAX) 5 mg EC tablet Take 2 tablets by mouth right before beginning bowel prep. See instructions provided by the office 2 tablet 11/02/19 25 Active polyethylene glycol (Golytely) 236-22.74-6.74 -5.86 gram solution Take 4L by mouth once for one dose. May substitue any PEG. Starting at 6PM the night before your procedure drink 1 8oz glasses at your own pace until you complete half of the gallon. Finish 2nd half of the gallon 5 hours before your procedure. 4000 mL 11/02/19 25 Active Trulicity 4.5 mg/0.5 mL pen injector injection INJECT ONE PEN (= 4.5MG) SUBCUTANEOUSLY ONCE A WEEK DIRECTED 11/24/19 24 Active Encounters Date Type Department Care Team Description 11/15/2024 11:01 AM EDT Anesthesia Event [facility] Endoscopy [address] [place] [phone] Juan José Emerson DO 11/15/2024 9:16 AM EDT - 11/15/2024 11:59 PM EDT Hospital Encounter [facility] Endoscopy [address] [place] [id number] Lino Curtis DO Hard, Shannon, CRNA Walsh, Michael, DO Colon cancer screening Discharge Disposition: Home or Self Care from Last 3 Months Surgical History Surgery Date Site/Laterality Comments COLONOSCOPY HYSTERECTOMY SECTION, LOW TRANSVERSE CYST REMOVAL Right buttock Medical History Medical History Date Comments Acquired hypothyroidism CAD (coronary artery disease) Depression Hypertension Fibromyalgia Asthma MORALES on CPAP Diabetes mellitus (CMS/HCC) Migraines Social History Tobacco Use Types Packs/Day Years [...] PM EDT Sexual Orientation Not on file Obstetrics History Last Filed Vital Signs Vital Sign Reading [...] Mass Index 36.96 11/15/2024 10:10 AM EDT Plan of Treatment Health Maintenance Due Date Last Done Comments Breast Cancer Screening 1965 Diabetes: Annual GFR (Glomerular Filtration Rate) 1965 Diabetes: Annual Foot Exam 1974 Diabetes: Annual Retina Eye Exam 1974 Cervical Cancer Screening: Pap Smear 1985 Zoster Vaccines (1 of 2) 2014 Hepatitis C Screening 07/20/2022 Social Influencers of Health Screening 07/20/2022 COVID-19 Vaccine ( season) 2024 04/07/2022, 09/04/2021, 08/13/2021 RSV Immunization Adult Patients (1 - Risk 60-74 years 1-dose series) 2024 Diabetes: Annual Urine Albumin-Creatinine Ratio (uACR) 11/15/2024 Hypertension/CHF/CAD Annual BMP Blood Test 11/15/2024 Influenza Vaccine (Season Ended) 2025 07/31/2023, 06/17/2022, 05/10/2018, Additional history exists Diabetes: Blood Sugar Control Test (HGBA1C) 05/03/2025 10/31/2024 Depression Screening 10/31/2025 10/31/2024 DTaP,Tdap,and Td Vaccines (2 - Td or Tdap) 04/15/2027 04/15/2017 Cholesterol Screening (Lipid Panel) 06/21/2029 06/21/2024 Colorectal Cancer Screening: Colonoscopy 11/15/2034 11/15/2024 HIV Screening Completed 04/07/2022 Pneumococcal Vaccine: 50+ Years Completed 10/22/2022, 09/24/2017 Pneumococcal Vaccine: Pediatrics (0 to 5 Years) and At-Risk Patients (6 to 64 Years) Completed 10/22/2022, 09/24/2017 HIB Vaccines Aged Out [...] to complete this topic RSV Immunization Patients Under 20 months Aged Out No longer eligible based on patient's age to complete this topic Varicella Vaccines Aged Out No longer eligible based on patient's age to complete this topic Procedures Procedure Name Priority Date/Time Associated Diagnosis Comments COLONOSCOPY Routine 11/15/2024 11:14 AM EDT Colon cancer screening from Last 3 Months Results * COLONOSCOPY Anesthesia - MAC; [facility] ENDOSCOPY (11/15/2024 11:14 AM EDT) Anatomical Region [...] care physician. Narrative 11/15/2024 11:14 AM EDT [facility] GI Patient Name: Vicky Nice Procedure Date: 11/15/2024 10:11 AM Date of : 1965 Age: 59 Gender: Female Note Status: Finalized Attending MD: Lino Curtis DO, [id number] Procedure Date No Time: 11/15/2024 Procedure: ? Colonoscopy Indications: ? Screening for colorectal malignant neoplasm Providers: ? Lino Curtis DO Referring MD: ?Nemo [place] Medicines: ? Monitored Anesthesia Care Complications: ? [...] physician, the nurse, the ? anesthesiologist, the collar padder blindstitch and the public works technician ? in the pre-procedure area in [...] malignant neoplasm ? of colon CPT copyright 2020 [employer]. All rights reserved. The codes documented in this report are preliminary and upon certified procedural coder review may be revised to meet current compliance requirements. LINO Curtis DO 11/15/2024 11:14:28 AM This report has been signed electronically.Lino Curtis DO Number of Addenda: 0 Note Initiated On: 11/15/2024 10:11 AM Scope Withdrawal Time: 0 hours 7 minutes 24 seconds Scope In: 11:03:11 AM Scope Out: 11:13:27 AM ? Endoscopy Department at [facility] - [address] [place] [address], ? [place] [address] Procedure Note Lino Curtis DO - 11/15/2024 [facility] GI Patient Name: Vicky Nice Procedure Date: 11/15/2024 10:11 AM Date of : 1965 Age: 59 Gender: Female Note Status: Finalized Attending MD: Lino Curtis DO, [id number] Procedure Date No Time: 11/15/2024 Procedure: Colonoscopy Indications: Screening for colorectal malignant neoplasm Providers: Lino Curtis DO Referring MD: Nemo [place] Medicines: Monitored Anesthesia Care Complications: No immediate [...] the physician, the nurse, the anesthesiologist, the collar padder blindstitch and thetechnician in the pre-procedure area in [...] for malignantneoplasm of colon CPT copyright 2020 [employer]. All rights reserved. The codes documented in this report are preliminary and upon certified procedural coder reviewmay be revised to meet current compliance requirements. LINO Curtis DO 11/15/2024 11:14:28 AM This report has been signed electronically.Lino Curtis DO Number of Addenda: 0 Note Initiated On: 11/15/2024 10:11 AM Scope Withdrawal Time: 0 hours 7 minutes 24 seconds Scope In: 11:03:11 AM Scope Out: 11:13:27 AM Endoscopy Department at [facility] - [address] [place] [phone] IMPRESSION: - The examination was otherwise normal on direct and retroflexion views. - No specimens collected. Recommendation: - - Discharge patient to home. - Resume previous diet. - Continue present medications. - Repeat colonoscopy in 10 years for screening purposes. - Return to primary care physician. Lino Curtis DO GI~PROCEDURE ORDERABLES Final Re sult from Last 3 Months Insurance MEDICAID - [place] Care Teams Long Chain Beamer Relationship Specialty Start Date End Date [place] Nemo [address] [phone] PCP - General Family Medicine 06/27/24
[2024-11-21 11:20] LABS: MANUAL DIFF FLAG NO
[2024-11-21 11:24] LABS: Basophils Percent Auto 0.7 % (0-2); Eosinophils Absolute Auto 0.2 X10*3/uL (0.0-0.4); Eosinophils Percent Auto 4.8 % (0-4); Hematocrit 37.7 % (37.0-47.0); Hemoglobin 12.4 g/dl (12.0-16.0); Imm Gran Abs Auto 0.01 X10*3/uL (0.00-0.03); Imm Gran Pct Auto 0.2 % (0.0-0.4); Lymphocytes Absolute Auto 1.7 X10*3/uL (1.2-4.9); Mean Corpuscular HGB Conc 32.9 g/dl (31.0-35.0); Mean Corpuscular Hemoglobin 28.6 pg (27.0-33.0); Mean Corpuscular Volume 87.1 fL (80.0-98.0); Mean Platelet Volume 11.1 fL (9.4-12.3); Monocytes Absolute Auto 0.4 X10*3/uL (0.1-1.2); Neutrophils Absolute Auto 2.3 x10*3/uL (2.0-8.3); Neutrophils Percent Auto 49.3 % (45-73); Platelet Count 266 X10*3/uL (160-400); Red Blood Count 4.33 X10*6/uL (4.20-5.50); Red Cell Distribution Width 13.4 % (11.0-16.0); White Blood Count 4.6 X10*3/uL (4.8-10.8)
[2024-11-21 11:42] LABS: Creatinine Urine 335.07 mg/dL
[2024-11-21 12:07] LABS: Thyroid Stimulating Hormone 8.84 uIU/mL (0.32-4.0)
[2024-11-21 12:14] LABS: Erythrocyte Sedimentation Rate 27 MM/HR (0-20)
[2024-11-21 14:30] LABS: Anion Gap 11 (12-20)
[2024-11-21 14:37] LABS: Alanine Aminotransferase 44 U/L (0-31); Alkaline Phosphatase 132 U/L (39-117); Aspartate Amino Transferase 29 U/L (5-31); Bilirubin Direct 0.1 mg/dL (0.0-0.5); Bilirubin Total 0.4 mg/dL (0.0-1.0); Blood Urea Nitrogen 14 mg/dL (9-16); C Reactive Protein 0.38 mg/dL (< or = 0.50); Calcium 9.6 mg/dL (8.4-10.2); Carbon Dioxide 26 mmol/L (22-29); Chloride 107 mmol/L (96-108); Cholesterol 312 mg/dL (<200); Estimated Glomerular Filt Rate > 60; Glucose Random 225 mg/dL (60-115); HDL Cholesterol 48 mg/dL (>40); LDL Cholesterol Calculated 226 mg/dL (<100); Potassium 4.3 mmol/L (3.3-5.1); Sodium 140 mmol/L (135-145); Triglycerides 193 mg/dL (<150)
[2024-11-21 15:11] LABS: Total Protein 7.3 g/dL (6.5-8.0)
== END 2024-11-21 09:12 | disposition home or self-care (01) ==
LOC: HO.HHCL 09:11
PROVIDERS: Visit Provider Registered Nurse
DX: E11.65 Type 2 diabetes mellitus with hyperglycemia (principal); Z79.4 Long term (current) use of insulin; E03.9 Hypothyroidism, unspecified; T78.40XA Allergy, unspecified, initial encounter; E78.00 Pure hypercholesterolemia, unspecified
CPT/HCPCS: 36415; 80048; 80061; 80076; 82043; 82570; 84443; 85025; 85652; 86140

== ENCOUNTER 2024-12-19 14:08 | Outpatient (REF) | payer MEDICAID, SELFPAY ==
--- OUTSIDE RECORDS SUMMARY | 2024-12-19 15:41 | XMS_ITS | Encounter Summary ---
Author Organization [employer] Address [address] [place] [address] 7 [place] [address] Care Team Providers Care Thin Film Technician Name Role Phone Nemo Savage TRICOT KNITTING MACHINE OPERATOR Primary Care Provider [phone] Crystal Vital PharmD Unavailable [phone] Encounter Details Date Type Department Care Team (Late st Contact Info) Description 02/25/2024 Orders Only [facility] MEDICINE [address] [place] [address] Yolette Brown NP [address] [place] [address] Social History Tobacco Use Types Packs/Day Years [...] Sex Female 10:31 AM EDT Gender Identity Female 11/28/2024 11:32 AM EDT Sexual Orientation Straight 11/28/2024 11 :32 AM EDT documented as of this encounter Plan of Treatment Upcoming Encounters Date Type Department Care Team (Late st Contact Info) Description 12/22/2024 1:00 PM EDT Office Visit [facility] OPTOMETRY [address] [place] [address] Jenny Blanchard, OD [address] [place] [address] 12/27/2024 11:30 AM EDT Medication Management [facility] MEDICINE [address] [place] [address] Crystal Vital, PharmD [address] [place] [address] 02/03/2025 1:00 PM EDT Office Visit [facility] MEDICINE [address] [place] [address] [place], Nemo, TRICOT KNITTING MACHINE OPERATOR [address] [place] [address] documented as of this encounter Goals Goal Patient Goal Type Associated Problems Recent Progress Patient-Stated? Author Hemoglobin A1c < 7.5 Result Component 8.5(10/31/2024 1:39 PM EDT) No Crystal Vital, PharmD documented as of this encounter Visit Diagnoses Not on filedocumented in this encounter Additional Health Concerns Assessment Noted Time PHQ-9 Depression Total Score: 9 02/04/20 11:53 AM EDT documented as of this encounter Care Teams Thin Film Technician Relationship Specialty Start Date End Date Janette BERRY Chester [address] [place] [address] PCP - General Family Medicine 04/14/22 Crystal Vital, Yesika [address] [place] [address] Pharmacist Internal Medicine 05/16/24 documented as of this encounter
--- OUTSIDE RECORDS SUMMARY | 2024-12-19 15:41 | XMS_ITS | Encounter Summary ---
Author Organization [employer] Address [address] [facility] 7 [place] [address] Care Team Providers Care Glost Kiln Placer Name Role Phone [facility] Primary Care Provider [phone] Crystal Vital PharmD Unavailable [phone] Reason for Visit * Reason Comments Med Refill Encounter Details Date Type Department Care Team (Late st Contact Info) Description 08/26/2023 Refill [facility] MED & PEDS [address] [place] [address] [facility] [address] [place] [address] Essential hypertension Social History Tobacco Use Types [...] Description 12/22/2024 1:00 PM EDT Office Visit [facility] OPTOMETRY [address] [place] [address] Jenny Blanchard, OD [address] [place] [address] 12/27/2024 11:30 AM EDT Medication Management [facility] MEDICINE [address] [place] [address] Crystal Vital, PharmD [address] [place] [address] 02/03/2025 1:00 PM EDT Office Visit [facility] MEDICINE [address] [place] [address] Nemo Savage FNP [address] [place] [address] documented as of this encounter Visit Diagnoses Diagnosis Essential hypertension Unspecified essential hypertension documented in this encounter Additional Health Concerns Assessment Noted Time PHQ-9 Depression Total Score: 8 07/31/20 23 10:25 AM EST documented as of this encounter Care Teams Glost Kiln Placer Relationship Specialty Start Date End Date Nemo Savage FNP [address] [place] [address] PCP - General Family Medicine 04/14/22 Crystal Vital, Yesika [address] [place] [address] Pharmacist Internal Medicine 05/16/24 documented as of this encounter
--- OUTSIDE RECORDS SUMMARY | 2024-12-19 15:41 | XMS_ITS | Encounter Summary ---
Author Organization [employer] Address [address] [place] [address] 7 [place] [address] Care Team Providers Care Director Patient Accounting Name Role Phone [place] [facility] Primary Care Provider [phone] Crystal Vital PharmD Unavailable Encounter Details Date Type Department Care Team (Late Contact Info) Description 07/23/[address] [facility] MEDICINE [address] [place] [address] [facility] [address] [place] [address] Social History Tobacco Use Types Packs/Day Years Used Date Smoking Tobacco: Never Assessed Comments Unknown Sex and Gender Information Value Date Recorded Sex Assigned at Female 06/16/2022 10:31 AM EDT Legal Sex Female 10:31 AM EDT Gender Identity Female 11/28/2024 11:32 AM EDT Sexual Orientation Straight 11/28/2024 11 :32 AM EDT COVID-19 Exposure Response Date Recorded In the last 10 days, have yo u been in contact with someone who was confirmed or suspected to have Coronavirus/COVID-19? No / Unsure 07/24/2022 10:03 AM EST documented as of this encounter Plan of Treatment Upcoming Encounters Date Type Department Care Team (Late st Contact Info) Description 12/22/2024 1:00 PM EDT Office Visit [facility] OPTOMETRY [address] [place], [place] [phone] Jenny Blanchard OD [address] [place] [address] 12/27/2024 11:30 AM EDT Medication Management [facility] MEDIC[facility] [place] [address] Crystal Vital PharmD [facility] [place] [address] 02/03/2025 1:00 PM EDT Office Visit [facility] MEDIC[facility] [place] [address] Nemo Savage FNP [facility] [address] documented as of this encounter Visit Diagnoses Not on filedocumented in this encounter Care Teams Director Patient Accounting Relationship Specialty Start Date End Date Nemo Savage [facility] [place] [address] PCP - General Family Medicine 04/14/22 Crystal Vital PharmD [facility] [place] [address] Pharmacist Internal Medicine 05/16/24 documented as of this encounter
--- OUTSIDE RECORDS SUMMARY | 2024-12-19 15:41 | XMS_ITS | Encounter Summary ---
Author Organization [employer] Address [address] [place] [address] 7 [place] [address] Care Team Providers Care Treasury Manager Name Role Phone [place] Savage CASKET UPHOLSTERER Primary Care Provider [phone] Crystal Vital PharmD Unavailable [phone] Encounter Details Date Type Department Care Team (Late Contact Info) Description 05/01/2023 Orders Only [facility] MED [facility] PEDS [address] [place] [address] Kirsten Allen LPN Social History Tobacco Use [...] Department Care Team (Late Contact Info) Description 12/22/2024 1:00 PM EDT Office Visit [facility] OPTOMETRY [address] [place], [place] [phone] Jenny Blanchard, CARLINE [address] [place], [place] [phone] 12/27/2024 11:30 AM EDT Medication Management [facility] MEDICINE [address] [place] [address] Crystal Vital PharmD [address] [place] [address] 02/03/2025 1:00 PM EDT Office Visit [facility] MEDICINE [address] [place] [address] Nemo Savage FNP [address] [place] [address] documented as of this encounter Visit Diagnoses Not on filedocumented in this encounter Additional Health Concerns Assessment Noted Time PHQ-9 Depression Total Score: 21 023 8:54 AM EST documented as of this encounter Care Teams Treasury Manager Relationship Specialty Start Date End Date Nem[place] Savage FNP [address] [place] [address] PCP - General Family Medicine 04/14/22 Crystal Vital, VerenaD [address] [place] [address] Pharmacist Internal Medicine 05/16/24 documented as of this encounter
--- OUTSIDE RECORDS SUMMARY | 2024-12-19 15:41 | XMS_ITS | Encounter Summary ---
Author Organization [employer] Address [address] [place] [address] 7 [place] [address] Care Team Providers Care Emergency Medical Dispatcher Name Role Phone [place] Savage [employer] Primary Care Provider [phone] Crystal Vital PharmD Unavailable [phone] Reason for Referral * Consultation (Routine) - Closed Specialty Diagnoses / Procedures Referred By Jordan t Referred To Contact Pharmacy Diagnoses Type 2 diabetes mellitus with hyperglycemia, with long-term current use of insulin (CMS/HCC) Mackenzie Callahan MD [address] [place] [address] Phone: tel: fax: Referral ID Status Reason Start Date Expiration Date V isits Requested Visits Authorized [id number] Closed Consult and Treat 06/10/2024 06/10/2025 6 6 Encounter Details Date Type Department Care Team (Late st Contact Info) Description 06/10/2024 Orders Only [facility] MEDICINE [address] [place], [place] [phone] Mackenzie Callahan MD [address] [place], [place] [phone] Type 2 diabetes mellitus with hyperglycemia, with [...] Description 12/22/2024 1:00 PM EDT Office Visit [facility] OPTOMETRY [address] [place] [address] Jenny Blanchard, OD [address] [place] [address] 12/27/2024 11:30 AM EDT Medication Management [facility] MEDICINE [address] [place] [address] Crystal Viatl, PharmD [address] [place] [address] 02/03/2025 1:00 PM EDT Office Visit [facility] MEDICINE [address] [place] [address] Nemo SavageBERRY [address] [place] [address] Scheduled Referrals Name Type Priority Associated Diagnoses Orde r Schedule Referral to Pharmacy CDTM Outpatient Referral Routine Type 2 diabetes mellitus with hyperglycemia, with long-term current use of insulin ([facility]) Ordered: 06/10/2024 documented as of this encounter Goals Goal Patient Goal Type Associated Problems Recent Progress Patient-Stated? Author Hemoglobin A1c < 7.5 Result Component 8.5(10/31/2024 1:39 PM EDT) No Crystal Vital, VerenaD documented as of this encounter Visit Diagnoses Diagnosis Type 2 diabetes mellitus with hyperglycemia, with long-term current use of insulin ([facility])- Primary documented in this encounter Additional Health Concerns Assessment Noted Time PHQ-9 Depression Total Score: 9 02/04/20 24 11:53 AM EDT documented as of this encounter Care Teams Emergency Medical Dispatcher Relationship Specialty Start Date End Date [place] [address] PCP - General Family Medicine 04/14/22 Crystal Vital, VerenaD [address] [place] [address] Pharmacist Internal Medicine 05/16/24 documented as of this encounter
--- OUTSIDE RECORDS SUMMARY | 2024-12-19 15:41 | XMS_ITS | Encounter Summary ---
Author Organization [employer] Address [address] [place] [address] 7 [place] [address] Care Team Providers Care Service Establishment Attendant Name Role Phone [facility] Primary Care Provider Crystal Vital PharmD Unavailable [phone] Reason for Visit * Reason Onset Date Comments Med Refill 08/01/2022 Encounter Details Date Type Department Care Team (Late st Contact Info) Description 08/01/2022 Telephone [facility] MEDICINE [address] [place], [place] [phone] [facility] [address] [place], [place] [phone] Med Refill Social History Tobacco Use Types [...] has trulicity .75mg, 1.5mg or 3mg. PCP CRIMINAL JUSTICE FACULTY [place] documented in this encounter Plan of Treatment Upcoming Encounters Date Type Department Care Team (Late st Contact Info) Description 12/22/2024 1:00 PM EDT Office Visit [facility] OPTOMETRY [address] [place] [address] Jenny Blanchard, OD [address] [place] [address] 12/27/2024 11:30 AM EDT Medication Management [facility] MEDICINE [address] [place] [address] Crystal Vital PharmD [address] [place] [address] 02/03/2025 1:00 PM EDT Office Visit [facility] MEDICINE [address] [place] [address] Nemo Savage FNP [address] [place] [address] documented as of this encounter Visit Diagnoses Not on filedocumented in this encounter Care Teams Service Establishment Attendant Relationship Specialty Start Date End Date Nem[place] Savage FNP [address] [place] [address] PCP - General Family Medicine 04/14/22 Crystal Vital PharmD [address] [place] [address] Pharmacist Internal Medicine 05/16/24 documented as of this encounter
--- OUTSIDE RECORDS SUMMARY | 2024-12-19 15:41 | XMS_ITS | Encounter Summary ---
Author Organization [employer] Address [address] [place] [address] 7 [place] [address] Care Team Providers Care Ward Secretary Name Role Phone [place] [facility] Primary Care Provider [phone] Crystal Vital PharmD Unavailable [phone] Reason for Visit * Reason Onset Date Comments Appointment Request 07/16/2023 Encounter Details Date Type Department Care Team ([facility] st Contact Info) Description 07/16/2023 Telephone [facility] [address] [place], [place] [phone] [facility] [address] [place], [place] [phone] Appointment Request Social History Tobacco Use Types [...] a physical appt because pt is overdue. Veterinary Anatomist did not see anything available. If any questions please contact Sabrina at [phone]. documented in this encounter Plan of Treatment Upcoming Encounters Date Type Department Care Team (Late st Contact Info) Description 12/22/2024 1:00 PM EDT Office Visit [facility] OPTOMETRY [address] [place] [address] Jenny Blanchard, OD [address] [place] [address] 12/27/2024 11:30 AM EDT Medication Management [facility]INE [address] [place] [address] Crystal Vital, PharmD [address] [place] [address] 02/03/2025 1:00 PM EDT Office Visit [facility] [address] [place] [address] Nemo Savage, BERRY [address] [place] [address] documented as of this encounter Visit Diagnoses Not on filedocumented in this encounter Additional Health Concerns Assessment Noted Time PHQ-9 Depression Total Score: 21 023 8:54 AM EST documented as of this encounter Care Teams Ward Secretary Relationship Specialty Start Date End Date Janette BERRY Chester [address] [place] [address] PCP - General Family Medicine 04/14/22 Crystal Vital, Yesika [address] [place] [address] Pharmacist Internal Medicine 05/16/24 documented as of this encounter
--- OUTSIDE RECORDS SUMMARY | 2024-12-19 15:42 | XMS_ITS | Encounter Summary ---
Author Organization [employer] Address [address] [facility] 7 [place] [address] Care Team Providers Care Science And Operations Officer Name Role Phone [facility] Primary Care Provider [phone] Crystal Vital PharmD Unavailable [phone] Encounter Details Date Type Department Care Team (Latest Contact Info) Description 11/30/2024 Orders Only [facility] WALK[facility] CENTER [address] [place], [place] [phone] [facility] [address] [place] [address] Hypercholesterolemia with LDL greater than 190 mg/dL (Primary Dx) Social History Tobacco Use Types [...] 1:00 PM EDT Office Visit [facility] OPTOMETRY [address] [place] [address] Jenny Blanchard, CARLINE [address] [place] [address] 12/27/2024 11:30 AM EDT Medication Management [facility] MEDICINE [address] [place] [address] Crystal Vital, PharmD [address] [place] [address] 02/03/2025 1:00 PM EDT Office Visit [facility] MEDICINE [address] [place] [address] Beattie, Nemo, DISINTEGRATOR OPERATOR [address] [place] [address] documented as of this encounter Goals Goal Patient Goal Type Associated Problems Recent Progress Patient-Stated? Author Hemoglobin A1c < 7.5 Result Component 8.5(10/31/2024 1:39 PM EDT) No Crystal Vital, PharmD documented as of this encounter Visit Diagnoses Diagnosis Hypercholesterolemia with LDL greater than 190 mg/dL- Primary documented in this encounter Additional Health Concerns Assessment Noted Time PHQ-9 Depression Total Score: 8 11/01/19 25 1:04 PM EDT documented as of this encounter Care Teams Science And Operations Officer Relationship Specialty Start Date End Date Nemo SavageBERRY [address] [place] [address] PCP - General Family Medicine 04/14/22 Crystal Vital, Yesika [address] [place] [address] Pharmacist Internal Medicine 05/16/24 documented as of this encounter
--- OUTSIDE RECORDS SUMMARY | 2024-12-19 15:42 | XMS_ITS | Clinical Summary ---
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 023 Active Hydrocortisone, Perianal, 1 % creamIndications :Rash APPLY TO THE AFFECTED AREA(S) RECTALLY TWICE DAILY FOR 7 DAYS 28.4 g 2 023 Active albuterol (2.5 MG/3ML) 0.083% nebulizer solution [...] Active pen needle 32G x 4 mm miscIndications: Type 2 diabetes mellitus with hyperglycemia, with long-term current use of insulin ([facility]) Use as instructed with insulin use four times daily 100 each 024 2024 Active sertraline (Zoloft) 100 MG tablet Take 2 tablets by mouth once daily Active Alcohol Swabs (Alcohol Prep) 70 % pads USE DIRECTED 100 each Active ezetimibe (Zetia) 10 MG tabletIndication s:Hypercholester olemia TAKE 1 TABLET BY MOUTH EVERY MORNING 90 tablet 2 Active Aspirin Low Dose 81 MG EC tablet TAKE 1 TABLET BY MOUTH EVERY MORNING 90 tablet 2 024 Active montelukast (Singulair) 10 MG tabletIndication s:Asthma, unspecified asthma severity, unspecified whether complicated, unspecified whether persistent TAKE 1 TABLET BY MOUTH EVERY EVENING 90 tablet 2 Active senna (Senokot) 8.6 MG tabletIndication s:Chronic idiopathic constipation TAKE 1 TABLET BY MOUTH AT BEDTIME 90 tablet 3 Active TRUEplus Lancets 33G miscIndications: Type 2 diabetes mellitus with hyperglycemia, with long-term current use of insulin ([facility]) TEST BLOOD SUGAR FOUR TIMES DAILY 100 each Active diphenhydrAMINE (BENADryl) 25 MG tabletIndication s:Rash,Allergic reaction to fruit Take 1 tablet (25 mg) by mouth every 6 (six) hours if needed for itching. 30 tablet Active hydrocortisone 1 % ointmentIndicati ons:Rash,Allergi c reaction to fruit Apply topically 2 times daily. 28 g 024 Active Continuous Glucose Sensor (FreeStyle José 2 Sensor) miscIndications: Type 2 diabetes mellitus with hyperglycemia, with long-term current use of insulin ([facility]) USE DIRECTED TO TEST BLOOD SUGAR. CHANGE EVERY 14 DAYS 2 each 5 024 Active EPINEPHrine (Epipen) 0.3 MG/0.3ML injection syringeIndicatio ns:Acute allergic reaction, initial encounter Inject 0.3 mL (0.3 mg) as directed 1 (one) time if needed for anaphylaxis. Inject into upper leg. Call 911 after use. 1 each 3 024 2024 Active cetirizine (ZyrTEC) 10 MG tabletIndication s:Acute allergic reaction, initial encounter Take 1 tablet (10 mg) by mouth Once per day. 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 TAKE 1 TABLET BY MOUTH EVERY MORNING BEFORE BREAKFAST 90 tablet 1 024 Active atorvastatin (Lipitor) 80 MG tablet TAKE 1 TABLET BY MOUTH EVERY MORNING 90 tablet 3 024 Active polycarbophil (Fiber-Lax) 625 MG tabletIndication s:Chronic idiopathic constipation TAKE 1 TABLET BY MOUTH EVERY MORNING WITH A FULL GLASS OF WATER 90 tablet 3 025 Active triamcinolone (Kenalog) 0.025 % creamIndications :Dry skin dermatitis MIX WITH 16 OUNCES CERAVE CREAM DIRECTED AND APPLY TOPICALLY TWICE DAILY 80 g 1 025 Active Tirzepatide (Mounjaro) 10 MG/0.5ML solution auto-injectorInd ications:Type 2 diabetes mellitus with hyperglycemia, with long-term current use of insulin ([facility]) Inject 10 mg under the skin 1 (one) time per week. 2 mL 3 025 Active insulin lispro (HumaLOG) 100 UNIT/ML injectionIndicat ions:Type 2 diabetes mellitus with hyperglycemia, with long-term current use of insulin ([facility]) INJECT THREE TIMES DAILY PER SLIDING SCALE (IF BLOOD SUGAR IS 141-180: 8 UNITS, 181-220: 8 UNITS, 221-260: 10 UNITS, 261-300: 12 UNITS, >300: 14 UNITS) 15 mL 3 025 Active glucose (Glutose) 40 % gel oral gelIndications:T ype 2 diabetes mellitus with hyperglycemia, with long-term current use of insulin ([facility]) Take 15 g by mouth if needed for low blood sugar. 45 g 11 025 Active insulin glargine (Lantus SoloStar) 100 UNIT/ML penIndications:T ype 2 diabetes mellitus with hyperglycemia, with long-term current use of insulin ([facility]) Inject subcutaneously 46 units once daily 15 mL 3 Active topiramate (Topamax) 25 MG tabletIndication s:Migraine without status migrainosus, not intractable, unspecified migraine type TAKE 1 TABLET BY MOUTH AT BEDTIME 30 tablet 2 Active triamcinolone (Kenalog) 0.1 % ointmentIndicati ons:Rash APPLY TOPICALLY TO THE AFFECTED AREA(S) TWICE DAILY FOR FOURTEEN DAYS 30 g 1 025 Active levothyroxine (Synthroid) 25 MCG tabletIndication s:Acquired hypothyroidism Take 1 tablet (25 mcg) by mouth before breakfast. TAKE WITH 200mcg tablet (225mcg total per day) 30 tablet 11 025 2025 Active clotrimazole (Lotrimin) 1 % cream APPLY TOPICALLY TO THE AFFECTED AREA(S) TWICE DAILY DIRECTED FOR 28 DAYS 025 Active glucose blood (FreeStyle Precision Noble Test) test stripIndications :Type 2 diabetes mellitus with hyperglycemia, with long-term current use of insulin ([facility]) Test blood sugar every 8 hours 50 each 3 025 2025 Active empagliflozin-me tFORMIN (Synjardy) 5-1000 MGIndications:Ty pe 2 diabetes mellitus with hyperglycemia, with long-term current use of insulin ([facility]) Take 1 tablet by mouth with breakfast and with evening meal. 180 tablet Active evolocumab (Repatha SureClick) 140 MG/ML injectionIndicat ions:Hypercholes terolemia with LDL greater than 190 mg/dL Inject 1 mL (140 mg) under the skin every 14 (fourteen) days. 2.1 mL Active gabapentin (Neurontin) 300 MG capsuleIndicatio ns:Fibromyalgia TAKE 1 CAPSULE BY MOUTH THREE TIMES DAILY IN THE MORNING, EVENING, AND BEDTIME 90 capsule 1 025 Active Blood Glucose Monitoring Suppl (FreeStyle Lite) deviceIndication s:Type 2 diabetes mellitus with hyperglycemia, with long-term current use of insulin ([facility]) Inject 1 each under the skin 4 times daily. Test daily before all meals/snacks and once before bedtime. 1 each 023 2024 Discontinued(M ed list cleanup (will not trigger notification to Pharmacy)) glucose blood (FreeStyle Precision Noble Test) test stripIndications :Type 2 diabetes mellitus with hyperglycemia, with long-term current use of insulin (CMS/HCC) Use with freestyle josé reader to monitor blood glucose as needed 50 each 024 2024 Discontinued glucose blood (FREESTYLE LITE) test stripIndications :Type 2 diabetes mellitus with hyperglycemia, with long-term current use of insulin ([facility]) TEST BLOOD SUGAR FOUR TIMES DAILY 100 strip 024 2024 Discontinued metFORMIN (Glucophage) 1000 MG tabletIndication s:Type 2 diabetes mellitus with hyperglycemia, with long-term current use of insulin (CMS/HCC) TAKE 1 TABLET BY MOUTH TWICE DAILY IN THE MORNING AND IN THE EVENING 180 tablet 1 024 2024 Discontinued(O ther) gabapentin (Neurontin) 300 MG capsuleIndicatio ns:Fibromyalgia TAKE 1 CAPSULE BY MOUTH THREE TIMES DAILY IN THE MORNING, EVENING, AND BEDTIME 90 capsule 1 025 2024 Discontinued triamcinolone (Kenalog) 0.1 % ointmentIndicati ons:Rash Apply topically 2 times daily. For 2 weeks 30 g 1 025 2024 Discontinued Active Problems Problem Noted Date Diagnosed Date Rash 07/18/2024 Assessment & Plan (07/18/2024 2:34 PM EST): ED precautions reviewed benadryl+ prednisone Hydrocortisone for skink itchiness apply on affected area BID no more than 2 weeks Allergic reaction to fruit 07/18/2024 Bilateral shoulder pain 02/04/2024 Postural dizziness 08/21/2023 Overview (08/21/2023): 1. Followed by Dr. Love at [facility] for similar sx. Last visit 02/2023 with unremarkable echocardiogram and LE venous duplex ultrasound with mild reflux otherwise unremarkable. Plan for stress test with follow up after. EKG with sinus bradycardia Orthostatic vital signs negative although HR persistently bradycardic Migraine without status migrainosus, not intract able 01/27/2023 Overview (04/28/2023): ?? Topiramate 25mg daily ?? Previously followed by [facility] neurology, lost to follow up Assessment & [...] maintenance 07/24/2022 Overview (08/21/2023): Pap: Followed by Kyle. Hx of abnormal pap, reports normal pap earlier in 2021. Records not in chart, will request Mammogram:10/2022 BIRADS-3, likely benign.repeat in an additional 6 months-has upcoming appointment BMD: Routine age 64 CRC: Referral to GI for screening 08/2022 Immunizations: Declines all vaccines today Vision: 03/2023- [facility] HIV: Neg 2021 Hepatitis:Neg 2016 Assessment & [...] booster, declines shingles today Vision: 10/2021 [facility] Dental: HIV: Neg 2021 Hepatitis:Neg 2016 Coronary artery disease invo lving [place] heart without angina pectoris 07/22/2022 Overview (02/04/2024): [...] 5mg ?? Followed by [facility] Dr. Love for hx of CP [...] 1000mg b.I.d Maintenance: Eye Exam: 03/2023 [facility] Diabetic foot exam:12/2023 RISK: 1 Encouraged regular [...] (A) 01/26/2023 ?? Pt followed closely by [facility] endocrinology ?? Continue current plan as directed [...] medication adherence Maintenance: Eye Exam: 10/2021 [facility] Diabetic foot exam:03/2022, RISK: 1 Microalbumin: 03/2022, [...] 1 month Maintenance: Eye Exam: 10/2021 [facility] Diabetic foot exam:03/2022, RISK: 1 Microalbumin: 03/2022, [...] Encounters Date Type Department Care Team Description 12/16/2024 Refill [facility] [address] [place] [address] [place] FNP Fibromyalgia 12/15/2024 Telephone [facility] MEDICINE [address] [place] [address] [place] FNP Prior Authorization (JORGE FERRO Request: Darci) 11/30/2024 Orders Only [facility] [address] [place] [address] [place] jimenez FNP Hypercholesterolemia with LDL greater than 190 mg/dL (Primary Dx) 11/28/2024 Travel 11/21/2024 Telephone [facility] MEDICINE [address], [place] [phone] Delilah Melchor, RN Results 11/21/2024 Orders Only [facility] [address] [facility] [place] [address] Nemo Savage [facility] Acquired hypothyroidism (Primary Dx) 11/21/2024 Patient Outreach [facility] [address] [place] [address] [facility] (T[facility] (HDF unscheduled. ) 11/21/2024 Orders Only [facility] [address] [facility] [place], [place] [address] Nemo Savage [facility] 11/21/2024 Refill [facility] [address] [facility] [place] [address] Nemo Savage [facility] Rash 11/18/2024 Telephone [facility] [address] [facility] [place] [address] Crystal Vital PharmD 11/16/2024 Refill [facility] [address] [facility] [place] [address] Nemo Savage [facility] Migraine without status migrainosus, not intractable, unspecified migraine type 11/14/2024 Travel 11/14/2024 Refill [facility] [address] [facility] [place] [address] Crystal Vital, PharmD Type 2 diabetes mellitus with hyperglycemia, with long-term current use of insulin ([facility]) 11/02/2024 Telephone [facility] [address] [facility] [place] [address] Delilah Melchor, RN Results 10/31/2024 1:00 PM EDT Office Visit [facility] [address] [facility] [place] [address] [facility] Type 2 diabetes mellitus with hyperglycemia, with long-term current use of insulin ([facility]) (Primary Dx); Productive cough; Rash; 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; Dietary counseling; Exercise counseling; Class 2 severe obesity due to excess calories with serious comorbidity and body mass index (BMI) of 38.0 to 38.9 in adult (CMS/[facility]) 10/31/2024 Travel 10/28/2024 Population Health Risk Score [facility] Department [address] [phone] Provider, Population Health Generic 10/24/2024 Patient Outreach [facility] [address] [place] [address] Nemo Savage FNP Pre-visit Planning ((Unable to reach for PVP screening, LVM)) 10/22/2024 Refill [facility] [address] [place] [address] JanetteNemo jimenez FNP Dry skin dermatitis 10/16/2024 Refill [facility] [address] [place], [place] [phone] [place] jimenez FNP Fibromyalgia 09/27/2024 Refill [facility] [address] [place] [address] Margare[place]emo [employer] BU[employer]DER Chronic idiopathic constipation from Last 3 Months Immunizations Name Administration [...] Orientation Straight 11/28/2024 11 :32 AM EDT Last Filed Vital Signs Vital Sign Reading Time Taken Comments Blood Pressure 130/70 11/28/2024 11:49 AM EDT Pulse 81 11/28/2024 11:49 AM EDT Temperature 36.6 ??C (97.8 ??F) 10/31/2024 [...] Description 12/22/2024 1:00 PM EDT Office Visit [facility] OPTOM[facility] [address] [place] [address] Jenny Blanchard, OD [address] [place], [place] [phone] 12/27/2024 11:30 AM EDT Medication Management [facility] [address] [place] [address] Crystal Vital, PharmD [address] [place], [place] [phone] 02/03/2025 1:00 PM EDT Office Visit [facility] MED[facility] [address], [place] [phone] [place], Nemo, ELEVATOR BUILDER [address] [place], [place] [phone] Health Maintenance Due Date Last Done Comments CT Colonography 1964 FIT DNA/Cologuard 1964 FIT 1964 FOBT 1964 Sigmoidoscopy 1964 Alcohol/Substance Use Screening 1976 Zoster Vaccines (1 of 2) 2014 Pap Smear 07/25/2023 07/25/2020, 07/25/2020 Eye Exam 02/24/2024 02/23/2023, 07, 02/23/2023, Additional history exists COVID-19 Vaccine ( season) 2024 04/07/2022, 04/07/2022, 09/04/2021, Additional history exists Influenza Vaccine (#1) 2024 3, 06/17/2022, 05/10/2018, Additional history exists RSV Patients and Patients Aged 60 years or older (1 - Risk 60-74 years 1-dose series) 2024 SDOH Screening 08/24/2024 08/24/2023 Diabetes: Foot Exam 12/17/2024 12/18/2023, 12/18/2023, 12/18/2023 Diabetes: Hemoglobin A1C 01/31/202510/31/2 025, 07/19/2024, 05/13/2024, Additional history exists Cervical Cancer Screening 07/25/2025 HPV/Cotest 07/25/2025 07/25/2020 Depression Screening 10/31/2025 10/31/2024, 11/01/19 Tobacco Screening 11/02/2025 11/02/2024 Diabetes: Urine Protein Screening 11/21/2025 11/21/2024, 06/21/2024, 04/29/2023, Additional history exists Lipid Panel 11/21/2025 11/21/2024, 12/2023, 04/29/2023, Additional history exists Mammogram 12/16/2025 12/17/2023, 10/15, 04/29/2022, Additional history exists DTaP/Tdap/Td Vaccines (2 - Td or Tdap) 04/15/2027 04/15/2017 Colonoscopy 11/15/2034 11/15/2024 Colorectal Cancer Screening 11/15/2034 HIV Screening Discontinued 04/07/2022 Pneumococcal Vaccine: 50+ [...] Procedure Name Priority Date/Time Associated Diagnosis Comments LIPID PANEL, STANDARD Routine 11/21/2024 9:18 AM EDT HEPATIC FUNCTION PANEL Routine 11/21/2024 9:18 AM EDT BASIC METABOLIC PANEL Routine 11/21/2024 9:18 AM EDT ALBUMIN, RANDOM URINE W/CREATININE Routine 11/21/2024 9:18 AM EDT C-REACTIVE PROTEIN Routine 11/21/2024 9: 18 AM EDT Acute allergic reaction, initial encounter SED RATE BY MODIFIED WESTERGREN Routine 11/21/2024 9:18 AM EDT Acute allergic reaction, initial encounter CBC WITH AUTO DIFFERENTIAL Routine 11/21/2024 9:18 AM EDT Acute allergic reaction, initial encounter TSH Routine 11/21/2024 9:18 AM EDT Acquired hypothyroidism XR CHEST 2 VIEWS Routine 10/31/2024 1:48 PM EDT Productive cough POCT GLUCOSE Routine 10/31/2024 1:39 PM EDT Type 2 diabetes mellitus with hyperglycemia, with long-term current use of insulin ([facility]) POCT GLYCATED HEMOGLOBIN, TOTAL Routine 10/31/2024 1:39 PM EDT Type 2 diabetes mellitus with hyperglycemia, with long-term current use of insulin ([facility]) BI MAMMOGRAM DIAGNOSTIC TOMOSYNTHESIS BILATERAL Routine 12/17/2023 2:05 PM EDT HIV 1/2 ANTIGEN/ANTIBODY, FOURTH GENERATION W/RFL Routine 04/07/2022 9:59 AM EDT HPV MRNA E6/E7 Routine 07/25/2020 10:15 AM EST HM PAP/HPV Routine 07/25/2020 from Last 3 Months or Most Recently Relevant to Health Maintenance Results * Albumin, Random Urine W/Creatinine (11/21/2024 9:18 AM EDT) Creatinine, Urine 335.07 mg/dL [facility] Microalbumin Urine 17.0 mg/L [facility] Microalbum Creatinine Ratio Ur 5.0 <30 ug/mg cr [facility] Comment:Albumin/Creatinine R atio Reference Ranges: Normal: < 30 ug/mg creatinine Microalbuminuria: 30 - 300 ug/mg creatinineClinical Albuminuria: > 300 ug/mg creatinine 11/21/2024 9:18 AM EDT 11/21/2024 11:15 AM EDT [facility] ELEVATOR BUILDER LAB URINE ORDERABLES Final Re sult [facility] [address] [place] [phone] * (ABNORMAL) CBC auto differential (11/21/2024 9:18 AM EDT) White Blood Count 4.6(L) 4.8 - 10.8 X10*3/uL [facility] Red Blood Count 4.33 4.20 - 5.50 X10*6/uL [facility] Hemoglobin 12.4 12.0 - 16.0 g/dl [facility] Hematocrit 37.7 37.0 - 47.0 % [facility] Mean Corpuscular Volume 87.1 80.0 - 98.0 fL [facility] Mean Corpuscular Hemoglobin 28.6 27.0 - 33.0 pg [facility] Mean Corpuscular HGB Conc 32.9 31.0 - 35.0 g/dl [facility] Red Cell Distribution Width 13.4 11.0 - 16.0 % [facility] Platelet Count 266 160 - 400 X10*3/uL [facility] Mean Platelet Volume 11.1 9.4 - 12.3 fL [facility] Neutrophils Percent Auto 49.3 45 - 73 % [facility] Imm Gran Pct Auto 0.2 0.0 - 0.4 % [facility] Lymphocytes Percent Auto 37.0 20 - 40 % [facility] Monocytes Percent Auto 8.0 2 - 11 % [facility] Eosinophils Percent Auto 4.8(H) 0 - 4 % [facility] Basophils Percent Auto 0.7 0 - 2 % [facility] NRBC Pct Auto 0.0 0.0 - 0.2 /100WBC [facility] Neutrophils Absolute Auto 2.3 2.0 - 8.3 x10*3/uL [facility] Imm Gran Abs Auto 0.01 0.00 - 0.03 X10*3/uL [facility] Lymphocytes Absolute Auto 1.7 1.2 - 4.9 X10*3/uL [facility] Monocytes Absolute Auto 0.4 0.1 - 1.2 X10*3/uL [facility] Eosinophils Absolute Auto 0.2 0.0 - 0.4 X10*3/uL [facility] Basophils Absolute Auto 0.0 0.0 - 0.2 X10*3/uL [facility] NRBC Abs Auto 0.000 0.0 - 0.012 X10*3/uL [facility] Blood Venous blood specimen / Unknown 11/21/2024 9:18 AM EDT 11/21/2024 11:14 AM EDT [facility] BLOOD ORDERABLES Final Re sult Performing Organization Address [facility] Co de Phone Number [facility] [address] [place] [phone] * (ABNORMAL) Sed Rate by Modified Vahe (11/21/2024 9:18 AM EDT) Erythrocyte Sedimentation Rate 27(H) 0 - 20 MM/HR [facility] Comment:Patients with polycy themia and many hemoglobin abnormalitiesmay have depressed sed rates whereas patients with anemiamay have elevated sed rates. Blood Venous blood specimen / Unknown 11/21/2024 9:18 AM EDT 11/21/2024 11:14 AM EDT [facility] LAB BLOOD ORDERABLES Final Re sult [facility] [address] [place] [phone] * C-reactive Protein (11/21/2024 9:18 AM EDT) C Reactive Protein 0.38 < or = 0.50 mg/dL [facility] Blood Venous blood specimen / Unknown 11/21/2024 9:18 AM EDT 11/21/2024 11:11 AM EDT [facility] BLOOD ORDERABLES Final Re sult Performing Organization Address [facility] Co de Phone Number [facility] [address] [place] [phone] * (ABNORMAL) TSH (11/21/2024 9:18 AM EDT) Thyroid Stimulating Hormone 8.84(H) 0.32 - 4.0 uIU/mL [facility] Comment:Note: A sustained TS H level above 2.5 uIU/mL may warrant further investigation. TSH 3rd Generation ([facility]) Blood Venous blood specimen / Unknown 11/21/2024 9:18 AM EDT 11/21/2024 11:11 AM EDT [facility] BLOOD ORDERABLES Final Re sult Performing Organization Address [facility] Co de Phone Number [facility] [address] [place] [phone] * (ABNORMAL) Hepatic Function Panel (11/21/2024 9:18 AM EDT) Bilirubin, Total 0.4 0.0 - 1.0 mg/dL [facility] Bilirubin, Direct 0.1 0.0 - 0.5 mg/dL [facility] Aspartate Amino Transferase 29 5 - 31 U/L [facility] Alanine Aminotransferase 44(H) 0 - 31 U/L [facility] Total Protein 7.3 6.5 - 8.0 g/dL [facility] Albumin Level 4.0 3.5 - 5.0 g/dL [facility] Alkaline Phosphatase 132(H) 39 - 117 U/L [facility] 11/21/2024 9:18 AM EDT 11/21/2024 11:11 AM EDT [facility] BLOOD ORDERABLES Final Re sult Performing Organization Address [facility] de Phone Number [facility] [address] [place] [phone] * (ABNORMAL) Lipid Panel, Standard (11/21/2024 9:18 AM EDT) Triglycerides 193(H) <150 mg/dL [facility] Comment:Desirable Triglyceri de: less than 150 mg/dLBorderline High Triglyceride 150-199 mg/dLHigh Triglyceride: 200-499 mg/dLVery High Triglyceride: greater than or equal to 5OO mg/dL Cholesterol 312(H) <200 mg/dL [facility] Comment:Desirable Cholestero l: less than 200 mg/dLBorderline High Cholesterol: 200-239 mg/dLHigh Cholesterol: greater than 239 mg/dL LDL Cholesterol Calculated 226(H) <100 mg/dL [facility] Comment:Desirable LDL: less than 100 mg/dLNear Optimal/Above Optimal LDL: 110- 129 mg/dLBorderline High LDL: 130-159 mg/dLHigh LDL: 160-189 mg/dLVery High LDL: greater than or equal to 190 mg/dL HDL Cholesterol 48 >40 mg/dL [facility] Comment:Desirable HDL: great er than 40 mg/dL Note: This HDL assay may give artificially low results in patients with liver disease. 11/21/2024 9:18 AM EDT 11/21/2024 11:11 AM EDT [facility] LAB BLOOD ORDERABLES Final Re sult Performing Organization Address [facility] Co de Phone Number [facility] [address] [place] [address] [phone] * (ABNORMAL) Basic Metabolic Panel (11/21/2024 9:18 AM EDT) Sodium 140 135 - 145 mmol/L [facility] Potassium 4.3 3.3 - 5.1 mmol/L [facility] Chloride 107 96 - 108 mmol/L [facility] Carbon Dioxide 26 22 - 29 mmol/L [facility] Anion Gap 11(L) 12 - 20 [facility] Urea Nitrogen (BUN) 14 9 - 16 mg/dL [facility] Creatinine, Serum 0.89 0.5 - 1.4 mg/dL [facility] Estimated Glomerular Filt Rate >60 [facility] Comment:Chronic Kidney Disea se: Estimated GFR < 60 mL/min/1.85p5Lznsyi Kidney Disease: Estimated GFR < 15 mL/min/1.73m2 Glucose 225(H) 60 - 115 mg/dL [facility] Calcium 9.6 8.4 - 10.2 mg/dL [facility] 11/21/2024 9:18 AM EDT 11/21/2024 11:11 AM EDT [facility] ELEVATOR BUILDER LAB BLOOD ORDERABLES Final Re sult [facility] [address] [place] [address] [phone] * XR Chest 2 Views (10/31/2024 1:48 PM EDT) Anatomical Region Laterality Modality Chest Radiographic Daylin ging 10/31/2024 1:48 PM EDT Narrative 10/31/2024 2:20 PM EDT ?[facility] ?[address] ?[place] [address] ?XRay Report ? Signed ? Patient: Carrasquillo Tex,Vicky ?MR#: M ?? [id number] ? : 1965 ?Acct:[id number] ? Age/Sex: 59 / F ?ADM Date: 03/17/25 ? Loc: HO.HHCX ? Attending Dr: Nemo Savage ELEVATOR BUILDER ? Ordering Physician: Nemo Savage ?? Date of Service: 10/31/24 ?? Procedure(s): XR chest 2V ?? Accession Number(s): [id number] ? cc: Nemo Savage ELEVATOR BUILDER ? EXAMINATION: ??XR CHEST 2 VIEWS ? [...] DD/ 1348 ? TD/TT: 10/31/24 1400 ? Pbx Installer: ? Procedure Note Marilou, Image - 10/31/[address] [address] XRay Report Signed Patient: Vicky Stacy#: M [id number] : 1965Acct:[id number] Age/Sex: 59 / FADM Date: 10/31/24 Loc: HO.HHCX Attending Dr: Nemo SMART Ordering Physician: Nemo Savage Date of Service: 10/31/24 Procedure(s): XR chest 2V Accession Number(s): [id number] cc: Nemo Savage EXAMINATION: XR CHEST 2 VIEWS HISTORY: 59 [...] 10/31/24 1418 DD/ 1348 TD/TT: 10/31/24 1400 Pbx Installer: [facility] IMG XR PROCEDURES Final Resul t * (ABNORMAL) POCT HGB A1C (10/31/2024 1:39 PM EDT) Hemoglobin A1C 8.5(A) 4.0 - 6.0 % QC Media Lot # [id number] Blood 10/31/2024 1:39 PM EDT [facility] POINT OF CARE TEST ENTER/EDIT ORDERABLES Final Result * (ABNORMAL) POCT Glucose (10/31/2024 1:39 PM EDT) Glucose Blood, POC 345(A) 60 - 200 mg/dL Blood Capillary blood specimen / Unknown 10/31/2024 1:39 PM EDT [facility] POINT OF CARE TEST ENTER/EDIT ORDERABLES Final Result * BI Mammogram Diagnostic Tomosynthesis Bilateral (12/17/2023 2:05 PM EDT) Anatomical Region Laterality Modality Breast Bilateral Mammography 12/17/2023 2:05 PM EDT Narrative 12/17/2023 2:47 PM EDT ? [place] [facility] ? [address] ?[place] [address] ? Mammography Report ? Signed ? Patient: Carrasquillo Tex,Vicky ?MR#: M ?? [id number] ? : 1965 ?Acct:[id number] ? Age/Sex: 58 / F ?ADM Date: 12/17/23 ? Loc: HO.MAMMO ? Attending Dr: Nemo Savage ELEVATOR BUILDER ? Ordering Physician: Nemo Savage ELEVATOR BUILDER ?Results: 2Beni ?? gn Findings ? Date of Service: 12/17/23 ?Follow Up: 1 Year From Orig ?? inal Mammogram ? Procedure(s): MM tomosynthesis diagnostic BI ?? Accession Number(s): [id number] ? cc: Nemo Savage ELEVATOR BUILDER ? EXAMINATION: ?? MM DIAGNOSTIC DIGITAL BREAST [...] 1443 ? DD/ 1405 ? TD/TT: ? Pbx Installer: ? Procedure Note Angie Zamarripa - 12/17/2023 [facility] [address] [place] [address] Mammography Report Signed Patient: Foreign Vicky Nice#: M [id number] : 1965Acct:[id number] Age/Sex: 58 / FADM Date: 12/17/23 Loc: HO.MAMMO Attending Dr: Nemo Savage ELEVATOR BUILDER Ordering Physician: Nemo Savage FNPResults: 2Beni gn Findings Date of Service: 12/17/23Follow Up: 1 Year From Orig [facility] Mammogram Procedure(s): MM tomosynthesis diagnostic BI Accession Number(s): [id number] cc: Nemo Savage ELEVATOR BUILDER EXAMINATION: MM DIAGNOSTIC DIGITAL BREAST TOMOSYNTHESIS, BILATERAL [...] in OV> 12/17/23 1443 DD/ 1405 TD/TT: Pbx Installer: [facility] IMG BI PROCEDURES Final Resul t * HIV 1/2 ANTIGEN/ANTIBODY,FOURTH GENERATION W/RFL (04/07/2022 9:59 AM EDT) HIV-1/2 ANTIGEN AND ANTIBODIES, 4TH GENERATION W/ REFLEX NON-REACT RAMYA NON-REACT RAMYA [facility] Comment: HIV-1 antigen and HIV-1/HIV-2 [...] ? For additional information please refer to http://education.Seesearch.Confovis/faq/KAG189 (This link is being provided for informational/ educational purposes only.) ? The performance of this assay has not been clinically validated in patients less than 2 years old. ?? 04/07/2022 9:59 AM EDT Joy Delcid GRIEF COUNSELLOR LAB BLOOD ORDERABLES Final Res ult [facility] [address] * (ABNORMAL) HPV mRNA E6/E7 (07/25/2020 10:15 AM EST) HPV nRNA E6/E7 Detected (A) Not Detected [facility] Comment: This test was performed using the APTIMA HPV Assay ([employer] This assay detects E6/E7 viral messenger RNA (mRNA) from 14 high-risk HPV types (16,18,31,33,35,39,45,51,52,56,58,59,66,68). ?? The analytical performance characteristics of this assay have been determined by [employer]. The modifications have not been cleared or approved by the FDA. This assay has been validated pursuant to the CLIA regulations and is used for clinical purposes. 07/25/2020 10:1 5 AM EST us Beverly León [facility] LAB BLOOD ORDERABLES Nevaeh fischer Result [facility] [address] [place] [address] * Pap Smear (07/25/2020) Pap smear Preformed Historical Provider HEALTH MAINTENANCE Final Result from Last 3 Months or Most Recently Relevant to Health Maintenance Insurance [employer] Hazmat Tanker Driver Relationship Specialty Start Date End Date [place]villeNemo jimenez FNP [address] [place] [address] PCP - General Family Medicine 04/14/22 Crystal Vital, VerenaD [address] [place] [address] Pharmacist Internal Medicine 05/16/24
--- OUTSIDE RECORDS SUMMARY | 2024-12-19 15:42 | XMS_ITS | Encounter Summary ---
Author Organization [employer] Address [address] [place] [address] 7 [place] [address] Care Team Providers Care Pot Builder Name Role Phone Nemo Savage BOX COVERING MACHINE OPERATOR Primary Care Provider [phone] Crystal Vital PharmD Unavailable [phone] Reason for Visit * Reason Comments Med Refill Encounter Details Date Type Department Care Team ([facility] Contact Info) Description 04/20/2023 Refill [facility] [address] [place], [place] [phone] Gokul Weinstein AGNP Social History Tobacco Use [...] Description 12/22/2024 1:00 PM EDT Office Visit [facility] OPTOMETRY [address] [place], [place] [phone] Jenny Blanchard OD [address] [place], [place] [phone] 12/27/2024 11:30 AM EDT Medication Management [facility] [address] [place] [phone] Crystal Vital PharmD [address] [place] [address] 02/03/2025 1:00 PM EDT Office Visit [facility] [address] [place] [address] Nemo Savage FNP [address] [place] [address] documented as of this encounter Visit Diagnoses Not on filedocumented in this encounter Additional Health Concerns Assessment Noted Time PHQ-9 Depression Total Score: 21 023 8:54 AM EST documented as of this encounter Care Teams Pot Builder Relationship Specialty Start Date End Date Nemo Savage FNP [address] [place] [address] PCP - General Family Medicine 04/14/22 Crystal Vital, Yesika [address] [place] [phone] Pharmacist Internal Medicine 05/16/24 documented as of this encounter
--- OUTSIDE RECORDS SUMMARY | 2024-12-19 15:42 | XMS_ITS | Encounter Summary ---
Author Organization [employer] Address [address] [facility] 7 [place] [address] Care Team Providers Care Semiconductor Wafer Inspector Name Role Phone Nemo Savage MANAGER FOOD Primary Care Provider [phone] Crystal Vital PharmD Unavailable [phone] Reason for Visit * Reason Comments Med Refill Encounter Details Date Type Department Care Team (Late st Contact Info) Description 11/14/2024 Refill [facility] [address] [place] [address] Crystal Vital, PharmD [address] [place], [place] [phone] Type 2 diabetes mellitus with hyperglycemia, with long-term current use of insulin ([facility]) Social History Tobacco [...] Description 12/22/2024 1:00 PM EDT Office Visit [facility] OPTOMETRY [address] [place] [address] Jenny Blanchard, CARLINE [address] [place] [address] 12/27/2024 11:30 AM EDT Medication Management [facility] [address] [place] [address] Crystal Vital, PharmD [address] [place] [address] 02/03/2025 1:00 PM EDT Office Visit [facility] MED[facility] [address] [place] [address] Nemo Savage FNP [address] [place] [address] documented as of this encounter Goals Goal Patient Goal Type Associated Problems Recent Progress Patient-Stated? Author Hemoglobin A1c < 7.5 Result Component 8.5(10/31/2024 1:39 PM EDT) No Crystal Vital, PharmD documented as of this encounter Visit Diagnoses Diagnosis Type 2 diabetes mellitus with hyperglycemia, with long-term current use of insulin ([facility]) documented in this encounter Additional Health Concerns Assessment Noted Time PHQ-9 Depression Total Score: 8 11/01/19 25 1:04 PM EDT documented as of this encounter Care Teams Semiconductor Wafer Inspector Relationship Specialty Start Date End Date JanetteNemo FNP [address] [place] [address] PCP - General Family Medicine 04/14/22 Crystal Vital, PharmD [address] [place] [address] Pharmacist Internal Medicine 05/16/24 documented as of this encounter
--- OUTSIDE RECORDS SUMMARY | 2024-12-19 15:42 | XMS_ITS | Encounter Summary ---
Author Organization [employer] Address [address] [place] [address] 7 [place] [address] Care Team Providers Care Ceramic Maker Demonstrator Name Role Phone [place] [facility] Primary Care Provider [phone] Crystal Vital PharmD Unavailable [phone] Reason for Visit * Reason Onset Date Comments Prior Authorization 12/15/2024 KASIE Aguirre t: Darci Encounter Details Date Type Department Care Team (Late st Contact Info) Description 12/15/2024 Telephone [facility] [address] [place], [place] [phone] [facility] [address] [place] [address] Prior Authorization (JORGE FERRO Request: Darci) Social History Tobacco Use Types Packs/Day Years [...] encounter Miscellaneous Notes * Telephone Encounter - Radha Swain - 12/15/2024 2:09 PM EDT PA billie Bejarano was generated and sent to provider via FIGS for signature. * Telephone Encounter - Radha Swain - 12/15/2024 2:03 PM EDT ----- Message from [facility] sent at 11/30/2024 1:26 PM EDT ----- Please initate darci FERRO. Thank you! I'll add an addendum to my most recent note for it. documented in this encounter Plan of Treatment Upcoming Encounters Date Type Department Care Team (Late st Contact Info) Description 12/22/2024 1:00 PM EDT Office Visit [facility] OPTOMETRY [address] [place] [address] Jenny Blanchard, OD [address] [place] [address] 12/27/2024 11:30 AM EDT Medication Management [facility] [address] [place] [address] Crystal Vital [place] [address] 02/03/2025 1:00 PM EDT Office Visit [facility] [address] [place] [address] Nemo Savage FNP [address] [place] [address] documented as of this encounter Goals Goal Patient Goal Type Associated Problems Recent Progress Patient-Stated? Author Hemoglobin A1c < 7.5 Result Component 8.5(10/31/2024 1:39 PM EDT) No Crystal Vital PharmD documented as of this encounter Visit Diagnoses Not on filedocumented in this encounter Additional Health Concerns Assessment Noted Time PHQ-9 Depression Total Score: 8 11/01/19 25 1:04 PM EDT documented as of this encounter Care Teams Ceramic Maker Demonstrator Relationship Specialty Start Date End Date Nemo Savage [facility] [address] [place] [address] PCP - General Family Medicine 04/14/22 Crystal Vital PharmD [address] [place] [address] Pharmacist Internal Medicine 05/16/24 documented as of this encounter
--- OUTSIDE RECORDS SUMMARY | 2024-12-19 15:42 | XMS_ITS | Clinical Summary ---
Author Organization [facility] Address [address] [place] [address] Phone Care Team Providers Care Aoc Director Combat Plans Officer Name Role Phone [facility] Primary Care Provider [phone] Allergies Active Allergy Reactions Criticality Noted Date [...] Description 11/15/2024 11:01 AM EDT Anesthesia Event [facility] [place] [facility] [address] [place] [phone] Juan José Emerson DO 11/15/2024 9:16 AM EDT - 11/15/2024 11:59 PM EDT Hospital Encounter [facility] [place] [facility] [address] [place] [phone] Lino Curtis DO Hard, Shannon, CRNA Walsh, Michael, DO Colon cancer screening Discharge Disposition: Home or Self Care from Last 3 Months Surgical History Surgery Date Site/Laterality Comments COLONOSCOPY HYSTERECTOMY SECTION, LOW TRANSVERSE CYST REMOVAL Right buttock Medical History Medical History Date Comments Acquired hypothyroidism CAD (coronary artery disease) Depression Hypertension Fibromyalgia Asthma MORALES on CPAP Diabetes mellitus ([facility] V24, [facility] V28) Migraines Social History Tobacco Use Types Packs/Day [...] age to complete this topic Meningococcal B Vaccine Aged Out No l onger eligible based on patient's age to complete [...] Months Results * COLONOSCOPY Anesthesia - MAC; [facility] END[facility] (11/15/2024 11:14 AM EDT) Anatomical Region [...] care physician. Narrative 11/15/2024 11:14 AM EDT [facility] [place] [facility] GI Patient Name: Vicky Nice Procedure Date: 11/15/2024 10:11 AM Date of : 1965 Age: 59 Gender: Female Note Status: Finalized Attending MD: Lino Curtis DO, [id number] Procedure Date No Time: 11/15/2024 Procedure: ? Colonoscopy Indications: ? Screening for colorectal malignant neoplasm Providers: ? Lino Curtis DO Referring MD: ?Nemo Hamlin Medicines: ? Monitored Anesthesia Care Complications: ? [...] physician, the nurse, the ? anesthesiologist, the almond blancher operator and the certified bench jeweler technician ? in the pre-procedure area in [...] neoplasm ? of colon CPT copyright 2020 [employer]. All rights reserved. The codes documented in this report are preliminary and upon funding analyst review may be revised to meet current compliance requirements. LINO Curtis DO 11/15/2024 11:14:28 AM This report has been signed electronically.Lino Curtis DO Number of Addenda: 0 Note Initiated On: 11/15/2024 10:11 AM Scope Withdrawal Time: 0 hours 7 minutes 24 seconds Scope In: 11:03:11 AM Scope Out: 11:13:27 AM ? Endoscopy Department at [facility] [place] [facility] - [address] [place] [address], ? [place] [address] Procedure Note Lino Curtis DO - 11/15/2024 [facility] [place] [facility] GI Patient Name: Vicky Nice Procedure Date: 11/15/2024 10:11 AM Date of : 1965 Age: 59 Gender: Female Note Status: Finalized Attending MD: Lino Curtis DO, [id number] Procedure Date No Time: 11/15/2024 Procedure: Colonoscopy [...] the physician, the nurse, the anesthesiologist, the almond blancher operator and thetechnician in the pre-procedure area in [...] for malignantneoplasm of colon CPT copyright 2020 [employer]. All rights reserved. The codes documented in this report are preliminary and upon funding analyst reviewmay be revised to meet current compliance requirements. LINO Curtis DO 11/15/2024 11:14:28 AM This report has been signed electronically.Lino Curtis DO Number of Addenda: 0 Note Initiated On: 11/15/2024 10:11 AM Scope Withdrawal Time: 0 hours 7 minutes 24 seconds Scope In: 11:03:11 AM Scope Out: 11:13:27 AM Endoscopy Department at [facility] [place] [facility] - [address] [place] [phone] IMPRESSION: - The examination was otherwise normal [...] Months Insurance MEDICAID - [place] Care Teams Aoc Director Combat Plans Officer Relationship Specialty Start Date End Date [facility] [address] [phone] PCP - General Family Medicine 06/27/24
--- OUTSIDE RECORDS SUMMARY | 2024-12-19 15:42 | XMS_ITS | Encounter Summary ---
Author Organization [employer] Address [address] [place] [address] 7 [place] [address] Care Team Providers Care Yarn Dyer Name Role Phone [facility] Primary Care Provider [phone] Crystal Vital PharmD Unavailable [phone] Reason for Visit * Reason Comments Med Refill Encounter Details Date Type Department Care Team (Late st Contact Info) Description 12/16/2024 Refill [facility]ED[facility] [address] [place], [place] [phone] [facility] [address] [place] [address] Fibromyalgia Social History Tobacco Use Types Packs/Day [...] Description 12/22/2024 1:00 PM EDT Office Visit [facility] OPTOMETRY [address] [place] [address] Jenny Blanchard, CARLINE [address] [place] [address] 12/27/2024 11:30 AM EDT Medication Management [facility] [address] [place] [address] Crystal Vital, PharmD [address] [place] [address] 02/03/2025 1:00 PM EDT Office Visit [facility] [address] [place] [address] [place], Nemo, PARK RECREATION MANAGER [address] [place] [address] documented as of this encounter Goals Goal [...] documented as of this encounter Care Teams Yarn Dyer Relationship Specialty Start Date End Date Janette BERRY [place] [address] [place] [address] PCP - General Family Medicine 04/14/22 Crystal Vital PharmD [address] [place] [address] Pharmacist Internal Medicine 05/16/24 documented as of this encounter
--- OUTSIDE RECORDS SUMMARY | 2024-12-19 15:42 | XMS_ITS | Encounter Summary ---
Author Organization [employer] Address [address] [place] [address] 7 [place] [address] Care Team Providers Care Steam Presser Name Role Phone Nemo Savage SHIPPING AND RECEIVING MATERIAL HANDLER Primary Care Provider [phone] Crystal Vital PharmD Unavailable [phone] Encounter Details Date Type Department Care Team ([facility] Contact Info) Description 10/27/2022 Orders Only [facility] MED & PEDS [address] [place] [address] Neyda Bray LPN Social History Tobacco Use [...] Upcoming Encounters Date Type Department Care Team ([facility] Contact Info) Description 12/22/2024 1:00 PM EDT Office Visit [facility] OPTOMETRY [address] [place], [place] [phone] Jenny Blanchard, OD [address] [place] [address] 12/27/2024 11:30 AM EDT Medication Management [facility] MEDICINE [address] [place] [address] Crystal Vital PharmD [address] [place] [address] 02/03/2025 1:00 PM EDT Office Visit [facility] MEDICINE [address] [place] [address] Nemo Savage FNP [address] [place] [address] documented as of this encounter Visit Diagnoses Not on filedocumented in this encounter Additional Health Concerns Assessment Noted Time PHQ-9 Depression Total Score: 21 023 8:54 AM EST documented as of this encounter Care Teams Steam Presser Relationship Specialty Start Date End Date Nemo Savage FNP [address] [place] [address] PCP - General Family Medicine 04/14/22 Crystal Vital PharmD [address] [place] [address] Pharmacist Internal Medicine 05/16/24 documented as of this encounter
--- OUTSIDE RECORDS SUMMARY | 2024-12-19 15:42 | XMS_ITS | Encounter Summary ---
Author Organization [employer] Address [address] [place] [address] 7 [place] [address] Care Team Providers Care Volunteer Services Specialist Name Role Phone [place] [facility] Primary Care Provider [phone] Crystal Vital PharmD Unavailable [phone] Reason for Visit * Reason Comments Med Refill Encounter Details Date Type Department Care Team (Late st Contact Info) Description 03/22/2024 Refill [facility] [address] [place], [place] [phone] [facility] 230 [place] [address] Type 2 diabetes mellitus with hyperglycemia, with long-term current use of insulin ([facility]) Social History Tobacco Use Types [...] Description 12/22/2024 1:00 PM EDT Office Visit [facility] OPTOMETRY [address] [place] [address] Jenny Blanchard, CARLINE [address] [place] [address] 12/27/2024 11:30 AM EDT Medication Management [facility] MED[facility] [address] [place] [address] Crystal Vital, PharmD [address] [place] [address] 02/03/2025 1:00 PM EDT Office Visit [facility] MED[facility] [address] [place] [address] Nemo Savage FNP 230 [place] [address] documented as of this encounter Goals Goal Patient Goal Type Associated Problems Recent Progress Patient-Stated? Author Hemoglobin A1c < 7.5 Result Component 8.5(10/31/2024 1:39 PM EDT) No Crystal Vital, PharmD documented as of this encounter Visit Diagnoses Diagnosis Type 2 diabetes mellitus with hyperglycemia, with long-term current use of insulin ([facility]) documented in this encounter Additional Health Concerns Assessment Noted Time PHQ-9 Depression Total Score: 9 02/04/20 24 11:53 AM EDT documented as of this encounter Care Teams Volunteer Services Specialist Relationship Specialty Start Date End Date ConyersNemo jimenez FNP [address] [place] [address] PCP - General Family Medicine 04/14/22 Crystal Vital, VerenaD [address] [place] [address] Pharmacist Internal Medicine 05/16/24 documented as of this encounter
== END 2024-12-19 14:09 | disposition home or self-care (01) ==
LOC: HO.MAMMO 14:08
PROVIDERS: PCP Registered Nurse; Visit Provider Registered Nurse
DX: Z12.31 Encounter for screening mammogram for malignant neoplasm of breast (principal)
CPT/HCPCS: 77063; 77067

== ENCOUNTER → 2024-12-19 14:30 | Outpatient (BNV) | payer MEDICAID, SELFPAY | PROVIDERS: PCP Registered Nurse; Visit Provider Internal Medicine | DX: Z12.31 Encounter for screening mammogram for malignant neoplasm of breast (principal) | CPT/HCPCS: 77063; 77067 ==

== ENCOUNTER 2025-03-07 12:19 | Outpatient (REF) | payer MEDICAID, SELFPAY ==
--- NOTE | ~2025-03-07 | XR_ITS ---
Examination: 5 view L-spine x-ray TECHNIQUE: AP, lateral, lateral spot, and bilateral oblique views History low back pain after falling COMPARISON: None FINDINGS: There is mild disc space narrowing in the lower thoracic spine. There is subtle retrolisthesis at L3-4 and L4-5. No fracture is identified. XR/XR lumbar spine 4V min IMPRESSION: No acute abnormality. Electronically signed by: Gio Garcia MD 03/07/2025 02:14 PM EDT
--- NOTE | ~2025-03-07 | XR_ITS ---
EXAMINATION: XR HIP, LEFT CLINICAL INFORMATION: sp fall / left hip + LBP COMPARISON: None available. TECHNIQUE: Two views of the left hip. FINDINGS: No fracture line or deformity is identified. There is no joint space narrowing. Acetabular osteophyte is noted. There are moderate vascular calcifications. XR/XR hip LT min 2V IMPRESSION: No acute abnormality. Electronically signed by: Gio Garcia MD 03/07/2025 02:12 PM EDT
--- OUTSIDE RECORDS SUMMARY | 2025-03-07 13:23 | XMS_ITS | Clinical Summary ---
Author Organization 175 [facility] Address [address] [place] [address] Phone Care Team Providers Care Melt Room Operator Name Role Phone [facility] Primary Care Provider [phone] Allergies Active Allergy Reactions Criticality Noted Date [...] ONCE A WEEK DIRECTED 11/24/19 24 Active Surgical History Surgery Date Site/Laterality Comments COLONOSCOPY HYSTERECTOMY SECTION, LOW TRANSVERSE CYST REMOVAL Right buttock Medical History Medical History Date Comments Acquired hypothyroidism CAD (coronary artery disease) Depression Hypertension Fibromyalgia Asthma MORALES on CPAP Diabetes mellitus ([facility] V24, [facility] V28) Migraines Social History Tobacco Use Types [...] 75 11/15/2024 11:35 AM EDT Temperature 36.1 C (97 F) 11/15/2024 10:10 AM EDT Respiratory Rate 16 [...] - Risk 60-74 years 1-dose series) 2024 Depression Screening 08/17/2024 Diabetes: Annual Urine Albumin-Creatinine Ratio (uACR) 11/15/2024 Hypertension/CHF/CAD Annual BMP Blood Test 11/15/2024 Influenza Vaccine (#1) 2025 , 06/17/2022, 05/10/2018, Additional history exists Diabetes: Blood Sugar Control Test (HGBA1C) 05/03/2025 10/31/2024 DTaP,Tdap,and Td Vaccines (2 - Td [...] Colon cancer screening from Last 3 Months or Most Recently Relevant to Health Maintenance Results * COLONOSCOPY Anesthesia - MAC; [facility] ENDOSCOPY (11/15/2024 11:14 AM EDT) Anatomical Region [...] purposes. - Return to primary care physician. Narrative 11/15/2024 11:14 AM EDT [facility] GI Patient Name: Vicky Nice Procedure Date: 11/15/2024 10:11 AM Date of : 1965 Age: 59 Gender: Female Note Status: Finalized Attending MD: Lino Curtis DO, [id number] Procedure Date No Time: 11/15/2024 Procedure: Colonoscopy Indications: Screening for colorectal malignant neoplasm Providers: Lino Curtis DO Referring MD: Nemo [place] Medicines: Monitored Anesthesia Care Complications: No immediate complications. Estimated blood loss: None. Estimated Blood Loss: Estimated blood loss: none. Procedure: Pre-Anesthesia Assessment: - - Prior to the procedure, a History and Physical was performed, and patient medications and allergies were reviewed. The patient is competent. The risks and benefits of the procedure and the sedation options and risks were discussed with the patient. All questions were answered and informed consent was obtained. Patient identification and proposed procedure were verified by the physician, the nurse, the anesthesiologist, the account development executive and the pharmacy technician assistant in the pre-procedure area in the endoscopy suite. Mental Status Examination: alert and oriented. Airway Examination: normal oropharyngeal airway and neck mobility. Respiratory Examination: clear to auscultation. CV Examination: normal. Prophylactic Antibiotics: The patient does not require prophylactic antibiotics. Prior Anticoagulants: The patient has taken no anticoagulant or antiplatelet agents. ASA Grade Assessment: II - A patient with severe systemic disease. After reviewing the risks and benefits, the patient was deemed in satisfactory condition to undergo the procedure. The anesthesia plan was to use monitored anesthesia care (MAC). Immediately prior to administration of medications, the patient was re-assessed for adequacy to receive sedatives. The heart rate, respiratory rate, oxygen saturations, blood pressure, adequacy of pulmonary ventilation, and response to care were monitored throughout the procedure. The physical status of the patient was re-assessed after the procedure. After I obtained informed consent, the scope was passed under direct vision. Throughout the procedure, the patient's blood pressure, pulse, and oxygen saturations were monitored continuously. The Olympus Pediatric Colonoscope was introduced through the anus and advanced to the cecum, identified by appendiceal orifice and ileocecal valve. The colonoscopy was performed without difficulty. The patient tolerated the procedure well. The quality of the bowel preparation was good. Findings: The perianal and digital rectal examinations were normal. The exam was otherwise without abnormality on direct and retroflexion views. Procedure Code(s): --- Professional --- G0121, Colorectal cancer screening; colonoscopy on individual not meeting criteria for high risk Diagnosis Code(s): --- Professional --- Z12.11, Encounter for screening for malignant neoplasm of colon CPT copyright 2020 [employer]. All rights reserved. The codes documented in this report are preliminary and upon police detective review may be revised to meet current compliance requirements. LINO Curtis DO 11/15/2024 11:14:28 AM This report has been signed electronically.Lino Curtis DO Number of Addenda: 0 Note Initiated On: 11/15/2024 10:11 AM Scope Withdrawal Time: 0 hours 7 minutes 24 seconds Scope In: 11:03:11 AM Scope Out: 11:13:27 AM Endoscopy Department at [facility] - [address] [place] [phone] Procedure Note Lino Curtis DO - 11/15/2024 [facility] GI Patient Name: Vicky Nice Procedure Date: 11/15/2024 10:11 AM Date of : 1965 Age: 59 Gender: Female Note Status: Finalized Attending MD: Lino Curtis DO, [id number] Procedure Date No Time: 11/15/2024 Procedure: Colonoscopy [...] the physician, the nurse, the anesthesiologist, the account development executive and thetechnician in the pre-procedure area in [...] for malignantneoplasm of colon CPT copyright 2020 [employer]. All rights reserved. The codes documented in this report are preliminary and upon police detective reviewmay be revised to meet current compliance requirements. LINO Curtis DO 11/15/2024 11:14:28 AM This report has been signed electronically.Lino Curtis DO Number of Addenda: 0 Note Initiated On: 11/15/2024 10:11 AM Scope Withdrawal Time: 0 hours 7 minutes 24 seconds Scope In: 11:03:11 AM Scope Out: 11:13:27 AM Endoscopy Department at [facility] - [address] [place] [phone] IMPRESSION: - The examination was otherwise normal on direct and retroflexion views. - No specimens collected. Recommendation: - - Discharge patient to home. - Resume previous diet. - Continue present medications. - Repeat colonoscopy in 10 years for screening purposes. - Return to primary care physician. Lino Curtis DO GI~PROCEDURE ORDERABLES Final Re sult from Last 3 Months or Most Recently Relevant to Health Maintenance Insurance MEDICAID - [place] Care Teams Melt Room Operator Relationship Specialty Start Date End Date [facility] [address] [phone] PCP - General Family Medicine 06/27/24
--- OUTSIDE RECORDS SUMMARY | 2025-03-07 13:23 | XMS_ITS | Encounter Summary ---
Author Organization [employer] Address 75 [facility] 7t [place] [address] Care Team Providers Care Transmission Supervisor Name Role Phone [facility] Primary Care Provider [phone] Crystal Vital PharmD Unavailable [phone] Carlos A Faustin RN Unavailable [phone] Maya Spicer Unavailable Reason for Visit * Reason Comments Med Refill Encounter Details Date Type Department Care Team (Late st Contact Info) Description 08/26/2023 Refill [facility] MED & PEDS [address] [place], [place] [phone] [facility] [address] [place] [address] Essential hypertension Social History Tobacco Use Types [...] the past 12 months, has t he [employer], gas, oil or water company threatened to [...] Care Team (Late st Contact Info) Description 03/24/2025 9:45 AM EDT Office Visit [facility] [address] [place] [phone] Nohemi Reeder, VILMA [address] [place] [address] 03/27/2025 2:00 PM EDT Medication Management [facility] [address] [place] [phone] Crystal Vital, PharmD [address] [place] [address] 05/10/2025 2:00 PM EDT Office Visit [facility] [address] [place] [phone] Nemo Savage FNP [address] [place] [address] documented as of this encounter Visit Diagnoses Diagnosis Essential hypertension Unspecified essential hypertension documented in this encounter Additional Health Concerns Assessment Noted Time PHQ-9 Depression Total Score: 8 07/31/20 23 10:25 AM EST documented as of this encounter Care Teams Transmission Supervisor Relationship Specialty Start Date End Date Nemo Savage FNP [address] [place] [address] PCP - General Family Medicine 04/14/22 Crystal Vital PharmD [address] [place] [address] Pharmacist Internal Medicine 05/16/24 Carlos A Faustin, LAYNE [address] [place] [address] Registered Nurse Family Medicine 03/07/25 Maya Spicer 03/07/25 documented as of this encounter
== END 2025-03-07 12:20 | disposition home or self-care (01) ==
LOC: HO.HHCX 12:19
PROVIDERS: PCP Registered Nurse; Visit Provider Internal Medicine
DX: M54.42 Lumbago with sciatica, left side (principal); M54.41 Lumbago with sciatica, right side; S73.102A Unspecified sprain of left hip, initial encounter; W10.1XXA Fall (on)(from) sidewalk curb, initial encounter
CPT/HCPCS: 72110; 73502

== ENCOUNTER → 2025-03-07 12:35 | Outpatient (BNV) | payer MEDICAID, SELFPAY | PROVIDERS: PCP Registered Nurse; Visit Provider Radiology Diagnostic Radiology | DX: M51.34 Other intervertebral disc degeneration, thoracic region (principal); M25.752 Osteophyte, left hip | CPT/HCPCS: 72110; 73502 ==

== ENCOUNTER 2025-03-16 14:08 | Outpatient (REF) | payer MEDICAID, SELFPAY ==
--- NOTE | ~2025-03-16 | US_ITS ---
EXAMINATION: Noninvasive assessment of the bilateral lower extremities with ARTERIAL DUPLEX, ANKLE BRACHIAL INDICES (ABIs), and PULSE VOLUME RECORDINGS (PVRs). CLINICAL INFORMATION: Diabetes type 2. Decreased peripheral pulses. TECHNIQUE: Duplex Doppler techniques with waveform analysis and measurement of velocities in the bilateral common femoral, profunda femoris, superficial femoral, popliteal and tibial arteries were performed. Additionally, ankle pulse volume recordings, ankle pressure measurements and ankle brachial indices were obtained of the lower extremity arterial system bilaterally. The study was performed only at rest. COMPARISON: None FINDINGS: DIRECT DUPLEX DOPPLER FINDINGS: RIGHT LEG: Common femoral artery: 94 cm/s, phasicity: Biphasic. Profunda femoris artery: 55 cm/s, phasicity: Biphasic. Superficial femoral artery (proximal): 92 cm/s, phasicity: Triphasic. Superficial femoral artery (mid): 75 cm/s, phasicity: Triphasic-biphasic Superficial femoral artery (distal): 82 cm/s, phasicity: Triphasic. Popliteal artery: 84 cm/s, phasicity: Biphasic. Posterior tibial artery: 91 cm/s, phasicity: Triphasic. Peroneal artery: 53 cm/s, phasicity: Biphasic. Anterior tibial artery: 93 cm/s, phasicity: Triphasic. Dorsalis pedis artery: 49 cm/s, phasicity:Triphasic. LEFT LEG: Common femoral artery: 91 cm/s, phasicity: Biphasic. Profunda femoris artery: 56 cm/s, phasicity: Biphasic. Superficial femoral artery (proximal): 90 cm/s, phasicity: Triphasic. Superficial femoral artery (mid): 79 cm/s, phasicity: Triphasic-biphasic. Superficial femoral artery (distal): 59 cm/s, phasicity: Triphasic-biphasic. Popliteal artery: 68 cm/s, phasicity: Triphasic. Posterior tibial artery: 88 cm/s, phasicity: Triphasic-biphasic. Peroneal artery: 47 cm/s, phasicity: Biphasic. Anterior tibial artery: 82 cm/s, phasicity: Triphasic. Dorsalis pedis artery: 97 cm/s, phasicity: Triphasic. BRACHIAL PRESSURES: Right: 146 Left: Not documented. ANKLE PRESSURES: Right: PT 158, DP 183 Left: PT 155, DP 158 ANKLE-BRACHIAL INDEX: Right: 1.25 Left: 1.08 ANKLE PVR WAVEFORMS: Right: Not documented. Left: Not documented. US/US arterial duplex BI w/ KELLEY IMPRESSION: Right leg: Mild inflow disease. Left leg: Mild inflow disease. KELLEY Reference: - >1.4 = calcified vessels - 0.9 - 1.4 = normal - no significant arterial disease - 0.7 - 0.89 = mild peripheral arterial disease - 0.51 - 0.69 = moderate peripheral arterial disease - 0.50 = severe peripheral arterial disease - < .30 = critical arterial disease Electronically signed by: Jomar Jon MD 03/16/2025 03:16 PM EDT
--- OUTSIDE RECORDS SUMMARY | 2025-03-16 14:23 | XMS_ITS | Clinical Summary ---
Author Organization 175 [facility] Address 175 [place] [address] Phone Care Team Providers Care Supervisor [employer]ings Name Role Phone [facility] Primary Care Provider [phone] Allergies Active Allergy Reactions Criticality Noted Date [...] Fibromyalgia Asthma MORALES on CPAP Diabetes mellitus ([facility] V24, [facility] V28) Migraines Social History Tobacco Use [...] Maintenance Results * COLONOSCOPY Anesthesia - MAC; [facility] ENDOSCOPY (11/15/2024 11:14 AM EDT) Anatomical Region [...] care physician. Narrative 11/15/2024 11:14 AM EDT [facility] GI Patient Name: Vicky Nice Procedure Date: 11/15/2024 10:11 AM Date of : 1965 Age: 59 Gender: Female Note Status: Finalized Attending MD: Lino Curtis DO, [id number] Procedure Date No Time: 11/15/2024 Procedure: Colonoscopy Indications: Screening for colorectal malignant neoplasm Providers: Lino Curtis DO Referring MD: Nemo [place] Medicines: Monitored Anesthesia Care Complications: No immediate [...] the physician, the nurse, the anesthesiologist, the oil well directional surveyor and the pattern technician in the pre-procedure area in the endoscopy [...] malignant neoplasm of colon CPT copyright 2020 [employer]. All rights reserved. The codes documented in this report are preliminary and upon plate inspector review may be revised to meet current compliance requirements. LINO Curtis DO 11/15/2024 11:14:28 AM This report has been signed electronically.Lino Curtis DO Number of Addenda: 0 Note Initiated On: 11/15/2024 10:11 AM Scope Withdrawal Time: 0 hours 7 minutes 24 seconds Scope In: 11:03:11 AM Scope Out: 11:13:27 AM Endoscopy Department at [facility] - [address] [place] [phone] Procedure Note Lino Curtis DO - 11/15/2024 [facility] GI Patient Name: Vicky Nice Procedure Date: 11/15/2024 10:11 AM Date of : 1965 Age: 59 Gender: Female Note Status: Finalized Attending MD: Lino Curtis DO, [id number] Procedure Date No Time: 11/15/2024 Procedure: Colonoscopy [...] the physician, the nurse, the anesthesiologist, the oil well directional surveyor and thetechnician in the pre-procedure area in [...] for malignantneoplasm of colon CPT copyright 2020 [employer]. All rights reserved. The codes documented in this report are preliminary and upon plate inspector reviewmay be revised to meet current compliance requirements. LINO Curtis DO 11/15/2024 11:14:28 AM This report has been signed electronically.Lino Curtis DO Number of Addenda: 0 Note Initiated On: 11/15/2024 10:11 AM Scope Withdrawal Time: 0 hours 7 minutes 24 seconds Scope In: 11:03:11 AM Scope Out: 11:13:27 AM Endoscopy Department at [facility] - [address] [place] [phone] IMPRESSION: - The examination was otherwise normal [...] Maintenance Insurance MED[place] - [place] Care Teams Supervisor [employer]ges [employer] Buildings Relationship Specialty Start Date End Date [facility] [address] [phone] PCP - General Family Medicine 06/27/24
== END 2025-03-16 14:09 | disposition home or self-care (01) ==
LOC: HO.US 14:08
PROVIDERS: PCP Registered Nurse; Visit Provider Registered Nurse
DX: R60.0 Localized edema (principal); R09.89 Other specified symptoms and signs involving the circulatory and respiratory systems
CPT/HCPCS: 93922; 93925

== ENCOUNTER → 2025-03-16 14:10 | Outpatient (BNV) | payer MEDICAID, SELFPAY | PROVIDERS: PCP Registered Nurse; Visit Provider Radiology Diagnostic Radiology | DX: I70.203 Unspecified atherosclerosis of native arteries of extremities, bilateral legs (principal) | CPT/HCPCS: 93922; 93925 ==

== ENCOUNTER 2025-03-24 10:16 | Outpatient (REF) | payer MEDICAID, SELFPAY ==
--- OUTSIDE RECORDS SUMMARY | 2025-03-24 10:20 | XMS_ITS | Clinical Summary ---
Author Organization 175 [facility] Address [address] [place] [address] Phone Care Team Providers Care Cyber Security Analyst Name Role Phone [facility] Primary Care Provider [phone] Allergies Active Allergy Reactions Criticality Noted Date [...] Fibromyalgia Asthma MORALES on CPAP Diabetes mellitus ([facility] V24, [facility] V28) Migraines Social History Tobacco Use Types [...] Maintenance Results * COLONOSCOPY Anesthesia - MAC; [facility] ENDOSCOPY (11/15/2024 11:14 AM EDT) [...] care physician. Narrative 11/15/2024 11:14 AM EDT [facility] GI Patient Name: Vicky Nice Procedure Date: 11/15/2024 10:11 AM Date of : 1965 Age: 59 Gender: Female Note Status: Finalized Attending MD: Lino Curtis DO, [id number] Procedure Date No Time: 11/15/2024 Procedure: Colonoscopy Indications: Screening for colorectal malignant neoplasm Providers: Lino Curtis DO Referring MD: Nemo Janette Medicines: Monitored Anesthesia Care Complications: No immediate [...] the physician, the nurse, the anesthesiologist, the solar sales and the therapeutic massage technician in the pre-procedure area in the [...] malignant neoplasm of colon CPT copyright 2020 [employer]. All rights reserved. The codes documented in this report are preliminary and upon mysql database developer review may be revised to meet current compliance requirements. LINO Curtis DO 11/15/2024 11:14:28 AM This report has been signed electronically.Lino Curtis DO Number of Addenda: 0 Note Initiated On: 11/15/2024 10:11 AM Scope Withdrawal Time: 0 hours 7 minutes 24 seconds Scope In: 11:03:11 AM Scope Out: 11:13:27 AM Endoscopy Department at [facility] - [address] [place] [phone] Procedure Note Lino Curtis DO - 11/15/2024 [facility] GI Patient Name: Vicky Nice Procedure Date: 11/15/2024 10:11 AM Date of : 1965 Age: 59 Gender: Female Note Status: Finalized Attending MD: Lino Curtis DO, [id number] Procedure Date No Time: 11/15/2024 Procedure: Colonoscopy [...] the physician, the nurse, the anesthesiologist, the solar sales and thetechnician in the pre-procedure area in [...] for malignantneoplasm of colon CPT copyright 2020 [employer]. All rights reserved. The codes documented in this report are preliminary and upon mysql database developer reviewmay be revised to meet current compliance requirements. LINO Curtis DO 11/15/2024 11:14:28 AM This report has been signed electronically.Lino Curtis DO Number of Addenda: 0 Note Initiated On: 11/15/2024 10:11 AM Scope Withdrawal Time: 0 hours 7 minutes 24 seconds Scope In: 11:03:11 AM Scope Out: 11:13:27 AM Endoscopy Department at [facility] - [address] [place] [phone] IMPRESSION: - The examination was otherwise normal [...] Maintenance Insurance MEDICAID - [place] Care Teams Cyber Security Analyst Relationship Specialty Start Date End Date [facility] [address] [phone] PCP - General Family Medicine 06/27/24
--- OUTSIDE RECORDS SUMMARY | 2025-03-24 10:20 | XMS_ITS | Encounter Summary ---
Author Organization [email or web address] Address [address] [facility] 7t [place] [address] Care Team Providers Care Breakdown Man Name Role Phone [employer] Primary Care Provider Crystal Vital PharmD Unavailable Carlos A Faustin RN Unavailable [phone] Maya Spicer Unavailable Reason for Visit * Reason Comments Med Refill Encounter Details Date Type Department Care Team (Late st Contact Info) Description 08/26/2023 Refill [facility] CHC MED & PEDS [address] [place], [place] [phone] [facility] [address] [place] [address] Essential hypertension Social History Tobacco Use Types [...] the past 12 months, has t he [employer], gas, oil or water company threatened to [...] Care Team (Late st Contact Info) Description 03/27/2025 2:00 PM EDT Medication Management [facility] MEDICINE [address] [place] [phone] Crystal Vital, PharmD [address] [place] [address] 05/10/2025 2:00 PM EDT Office Visit [facility] MEDICINE [address] [place] [address] Nemo Savage FNP [address] [place] [address] documented as of this encounter Visit Diagnoses Diagnosis Essential hypertension Unspecified essential hypertension documented in this encounter Additional Health Concerns Assessment Noted Time PHQ-9 Depression Total Score: 8 07/31/20 23 10:25 AM EST documented as of this encounter Care Teams Breakdown Man Relationship Specialty Start Date End Date Nemo Savage FNP [address] [place] [address] PCP - General Family Medicine 04/14/22 Crystal Vital, Yesika [address] [place] [address] Pharmacist Internal Medicine 05/16/24 Carlos A Faustin, LAYNE [address] [place] [address] Registered Nurse Family Medicine 03/07/25 Maya Spicer 03/07/25 documented as of this encounter
[2025-03-24 11:43] LABS: MANUAL DIFF FLAG NO
[2025-03-24 11:52] LABS: Hematocrit 38.0 % (37.0-47.0); Hemoglobin 12.7 g/dl (12.0-16.0); Imm Gran Abs Auto 0.01 X10*3/uL (0.00-0.03); Imm Gran Pct Auto 0.2 % (0.0-0.4); Lymphocytes Absolute Auto 2.2 X10*3/uL (1.2-4.9); Mean Corpuscular HGB Conc 33.4 g/dl (31.0-35.0); Mean Corpuscular Hemoglobin 28.4 pg (27.0-33.0); Mean Corpuscular Volume 85.0 fL (80.0-98.0); NRBC Abs Auto 0.000 X10*3/uL (0.0-0.012); NRBC Pct Auto 0.0 /100WBC (0.0-0.2); Platelet Count 266 X10*3/uL (160-400); Red Blood Count 4.47 X10*6/uL (4.20-5.50); White Blood Count 5.6 X10*3/uL (4.8-10.8)
[2025-03-24 11:53] LABS: INTERNATIONAL NORM RATIO 0.9 (0.9-1.1); Prothrombin Time 9.8 SEC (10.9-12.4)
[2025-03-24 11:56] LABS: Partial Thromboplastin Time 27.6 SEC (26.7-34.1)
[2025-03-24 12:06] LABS: Hemoglobin A1C 222.8900 umol/L; Microalbum/Creatinine Ratio Ur 4.1 ug/mg cr (<30); Total Hemoglobin (HGBA1C) 3448.5926 umol/L
[2025-03-24 12:12] LABS: Alanine Aminotransferase 32 U/L (0-31); Albumin Level 4.3 g/dL (3.5-5.0); Alkaline Phosphatase 113 U/L (39-117); Anion Gap 11 (12-20); Aspartate Amino Transferase 23 U/L (5-31); Blood Urea Nitrogen 13 mg/dL (9-16); Calcium 8.9 mg/dL (8.4-10.2); Carbon Dioxide 30 mmol/L (22-29); Chloride 104 mmol/L (96-108); Estimated Glomerular Filt Rate > 60; Potassium 4.5 mmol/L (3.3-5.1); Sodium 140 mmol/L (135-145); Total Protein 7.6 g/dL (6.5-8.0)
[2025-03-24 12:35] LABS: Thyroid Stimulating Hormone 15.48 uIU/mL (0.32-4.0)
== END 2025-03-24 10:17 | disposition home or self-care (01) ==
LOC: HO.HHCL 10:16
PROVIDERS: PCP Registered Nurse
DX: Z01.818 Encounter for other preprocedural examination (principal); E03.9 Hypothyroidism, unspecified
CPT/HCPCS: 36415; 80053; 82043; 82570; 83036; 84443; 85025; 85610; 85730

== ENCOUNTER 2025-05-09 09:45 | Outpatient (REF) | payer MEDICAID, SELFPAY ==
--- OUTSIDE RECORDS SUMMARY | 2025-05-09 11:41 | XMS_ITS | Encounter Summary ---
Author Organization [employer] Address 75 [facility] 7t [place] [address] Care Team Providers Care Software Applications Developer Name Role Phone [facility] Primary Care Provider [phone] Crystal Vital PharmD Unavailable Carlos A Faustin RN Unavailable [phone] Maya Spicer Unavailable Reason for Visit * Reason Comments Med Refill Encounter Details Date Type Department Care Team (Late st Contact Info) Description 08/26/2023 Refill [facility] CHC MED & PEDS [address] [place], [place] [phone] [facility] [address] [place] [address] Essential hypertension Social History Tobacco Use Types [...] the past 12 months, has t he [employer], gas, oil or water [employer] threatened to shut off services in your [...] Care Team (Late st Contact Info) Description 05/15/2025 10:30 AM EDT Medication Management [facility] MEDICINE [address] [place] [address] Crystal Vital, PharmD [address] [place] [address] 05/29/2025 9:45 AM EDT Office Visit [facility] CH[facility] MED & PEDS [address] [place] [address] [facility] [address] [place] [address] documented as of this encounter Visit Diagnoses Diagnosis Essential hypertension Unspecified essential hypertension documented in this encounter Additional Health Concerns Assessment Noted Time PHQ-9 Depression Total Score: 8 07/31/20 23 10:25 AM EST documented as of this encounter Care Teams Software Applications Developer Relationship Specialty Start Date End Date Nemo Savage FNP [address] [place] [address] PCP - General Family Medicine 04/14/22 Crystal Vital, VerenaD [address] [place] [address] Pharmacist Internal Medicine 05/16/24 Carlos A Faustin, RN [address] [place] [address] Registered Nurse Family Medicine 03/07/25 Maya Spicer 03/07/25 documented as of this encounter
--- OUTSIDE RECORDS SUMMARY | 2025-05-09 11:42 | XMS_ITS | Encounter Summary ---
Author Organization [employer] Address [address] [place] [address] [address] [place] [address] Care Team Providers Care Automatic Outsole Cutter Name Role Phone Nemo Savage PRODUCT DEVELOPMENT DIRECTOR Primary Care Provider [phone] Crystal Vital PharmD Unavailable Carlos A Faustin RN Unavailable [phone] Maya Spicer Unavailable Reason for Referral * Consultation (Routine) - Closed Specialty Diagnoses / Procedures Referred By Contac t Referred To Contact Pharmacy Diagnoses Type 2 diabetes mellitus with hyperglycemia, with long-term current use of insulin (CMS/HCC) Mackenzie Callahan MD [address] [place] [address] Phone: tel: fax: Referral ID Status Reason Start Date Expiration Date V isits Requested Visits Authorized [id number] Closed Consult and Treat 06/10/2024 06/10/2025 6 6 Encounter Details Date Type Department Care Team (Late st Contact Info) Description 06/10/2024 Orders Only [facility] [address] [place], [place] [phone] Mackenzie Callahan MD [address] [place], [place] [phone] Type 2 diabetes mellitus with hyperglycemia, with [...] Description 05/15/2025 10:30 AM EDT Medication Management [facility] [address] [place], [place] [phone] Crystal Vital, PharmD [address] [place] [address] 05/29/2025 9:45 AM EDT Office Visit [facility] [address] [facility] [place] [address] [facility] [address] [place] [address] Scheduled Referrals Name Type Priority Associated Diagnoses Orde r Schedule Referral to Pharmacy CDTM Outpatient Referral Routine Type 2 diabetes mellitus with hyperglycemia, with long-term current use of insulin ([facility]) Ordered: 06/10/2024 documented as of this encounter Goals Goal Patient Goal Type Associated Problems Recent Progress Patient-Stated? Author Hemoglobin A1c < 7.5 Result Component 8.1(03/24/2025 10:27 AM EDT) No Crystal Vital, PharmD documented as of this encounter Visit Diagnoses Diagnosis Type 2 diabetes mellitus with hyperglycemia, with long-term current use of insulin ([facility])- Primary documented in this encounter Additional Health Concerns Assessment Noted Time PHQ-9 Depression Total Score: 9 02/04/20 24 11:53 AM EDT documented as of this encounter Care Teams Automatic Outsole Cutter Relationship Specialty Start Date End Date [facility] [address] [place] [address] PCP - General Family Medicine 04/14/22 Crystal Vital, PharmD [address] [place] [address] Pharmacist Internal Medicine 05/16/24 Carlos A Faustin, RN [address] [place] [id number] Registered Nurse Family Medicine 03/07/25 Maya Spicer 03/07/25 documented as of this encounter
--- OUTSIDE RECORDS SUMMARY | 2025-05-09 11:42 | XMS_ITS | Clinical Summary ---
Author Organization [employer] Address [address] [place] [address] [address] [place] [address] Care Team Providers Care Table Inspector Name Role Phone Nemo Savage Primary Care Provider [phone] Crystal Vital PharmD Unavailable Carlos A Faustin RN Unavailable [phone] Maya Spicer Unavailable Allergies Active Allergy Reactions Criticality Noted [...] by mouth in the morning. 023 Active albuterol (2.5 MG/3ML) 0.083% nebulizer [...] HOURS NEEDED FOR NAUSEA AND VOMITING Active sertraline (Zoloft) 100 MG tablet Take 2 tablets by mouth once daily Active Alcohol Swabs (Alcohol Prep) 70 % pads USE DIRECTED 100 each Active TRUEplus Lancets 33G miscIndications:T ype 2 diabetes mellitus with hyperglycemia, with long-term current use of insulin ([facility]) TEST BLOOD SUGAR FOUR TIMES DAILY 100 each Active diphenhydrAMINE (BENADryl) 25 MG tabletIndications :Rash,Allergic reaction to fruit Take 1 tablet (25 mg) by mouth every 6 (six) hours if needed for itching. 30 tablet Active hydrocortisone 1 % ointmentIndicatio ns:Rash,Allergic reaction to fruit Apply topically 2 times daily. 28 g Active EPINEPHrine (Epipen) 0.3 MG/0.3ML injection syringeIndication s:Acute allergic reaction, initial encounter Inject 0.3 mL (0.3 mg) as directed 1 (one) time if needed for anaphylaxis. Inject into upper leg. Call 911 after use. 1 each 024 2024 Active D3 Super Strength 50 MCG (1999 UT) capsuleIndication s:Vitamin D deficiency TAKE 1 CAPSULE BY MOUTH EVERY MORNING 90 capsule 3 Active pantoprazole (ProtoNix) 40 MG EC tabletIndications :Dyspepsia TAKE 1 TABLET BY MOUTH TWICE DAILY IN THE MORNING AND IN THE EVENING 180 tablet 3 Active atorvastatin (Lipitor) 80 MG tablet TAKE 1 TABLET BY MOUTH EVERY MORNING 90 tablet 3 Active polycarbophil (Fiber-Lax) 625 MG tabletIndications :Chronic idiopathic constipation TAKE 1 TABLET BY MOUTH EVERY MORNING WITH A FULL GLASS OF WATER 90 tablet 3 Active glucose (Glutose) 40 % gel oral gelIndications:Ty pe 2 diabetes mellitus with hyperglycemia, with long-term current use of insulin ([facility]) Take 15 g by mouth if needed for low blood sugar. 45 g 11 Active insulin glargine (Lantus SoloStar) 100 UNIT/ML penIndications:Ty pe 2 diabetes mellitus with hyperglycemia, with long-term current use of insulin ([facility]) Inject subcutaneously 46 units once daily 15 mL 3 Active levothyroxine (Synthroid) 25 MCG tabletIndications :Acquired hypothyroidism Take 1 tablet (25 mcg) by mouth before breakfast. TAKE WITH 200mcg tablet (225mcg total per day) 30 tablet 2025 Active clotrimazole (Lotrimin) 1 % cream APPLY TOPICALLY TO THE AFFECTED AREA(S) TWICE DAILY DIRECTED FOR 28 DAYS Active glucose blood (FreeStyle Precision Noble Test) test stripIndications: Type 2 diabetes mellitus with hyperglycemia, with long-term current use of insulin ([facility]) Test blood sugar every 8 hours 50 each 2025 Active evolocumab (Repatha SureClick) 140 MG/ML injectionIndicati ons:Hypercholeste rolemia with LDL greater than 190 mg/dL Inject 1 mL (140 mg) under the skin every 14 (fourteen) days. 2.1 mL Active ezetimibe (Zetia) 10 MG tabletIndications :Hypercholesterol emia TAKE 1 TABLET BY MOUTH EVERY MORNING 90 tablet 2 Active Aspirin Low Dose 81 MG EC tablet TAKE 1 TABLET BY MOUTH EVERY MORNING 90 tablet 2 Active montelukast (Singulair) 10 MG tabletIndications :Asthma, unspecified asthma severity, unspecified whether complicated, unspecified whether persistent TAKE 1 TABLET BY MOUTH EVERY EVENING 90 tablet 2 Active Pentips Generic Pen Brooks 32G X 4 MM miscIndications:T ype 2 diabetes mellitus with hyperglycemia, with long-term current use of insulin ([facility]) USE DIRECTED TO INJECT INSULIN FOUR TIMES DAILY 100 each Active triamcinolone (Kenalog) 0.025 % creamIndications: Dry skin dermatitis Apply topically 2 times daily. 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 TAKE 1 TABLET BY MOUTH EVERY MORNING BEFORE BREAKFAST 90 tablet 1 025 Active cetirizine (ZyrTEC) 10 MG tabletIndications :Acute allergic reaction, initial encounter TAKE 1 TABLET BY MOUTH EVERY DAY 90 tablet 1 025 Active topiramate (Topamax) 25 MG tabletIndications :Migraine without status migrainosus, not intractable, unspecified migraine type TAKE 1 TABLET BY MOUTH AT BEDTIME 30 tablet 2 025 Active Synjardy 5-1000 MGIndications:Typ e 2 diabetes mellitus with hyperglycemia, with long-term current use of insulin ([facility]) TAKE 1 TABLET BY MOUTH TWICE DAILY IN THE MORNING AND IN THE EVENING WITH MEALS 60 tablet 2 Active meloxicam (Mobic) 15 MG tablet Take 1 tablet (15 mg) by mouth Once per day. 30 tablet 025 2025 Active senna (Senokot) 8.6 MG tabletIndications :Chronic idiopathic constipation TAKE 1 TABLET BY MOUTH AT BEDTIME 90 tablet 3 Active Continuous Glucose Sensor (FreeStyle José 2 Plus Sensor) miscIndications:T ype 2 diabetes mellitus with hyperglycemia, with long-term current use of insulin ([facility]) 1 each every 8 (eight) hours. 2 each Active Tirzepatide (Mounjaro) 10 MG/0.5ML solution auto-injectorIndi cations:Type 2 diabetes mellitus with hyperglycemia, with long-term current use of insulin ([facility]) Inject 10 mg under the skin every 7 (seven) days. 2 mL 3 025 Active gabapentin (Neurontin) 300 MG capsuleIndication s:Fibromyalgia TAKE 1 CAPSULE BY MOUTH THREE TIMES DAILY IN THE MORNING, EVENING, AND BEDTIME 90 capsule 1 025 Active insulin lispro (HumaLOG) 100 UNIT/ML injectionIndicati ons:Type 2 diabetes mellitus with hyperglycemia, with long-term current use of insulin (CMS/[facility]) INJECT THREE TIMES DAILY PER SLIDING SCALE (IF BLOOD SUGAR IS 141-180 = 8 UNITS, 181-220 = 8 UNITS, 221-260 = 10 UNITS, 261-300 = 12 UNITS, > 300 = 14 UNITS) 15 mL 3 025 Active insulin lispro (HumaLOG) 100 UNIT/ML injectionIndicati ons:Type 2 diabetes mellitus with hyperglycemia, with long-term current use of insulin (CMS/[facility]) INJECT THREE TIMES DAILY PER SLIDING SCALE (IF BLOOD SUGAR IS 141-180: 6 UNITS, 181-220: 8 UNITS, 221-260: 10 UNITS, 261-300: 12 UNITS, >300: 14 UNITS) 025 2024 Discontinued gabapentin (Neurontin) 300 MG capsuleIndication s:Fibromyalgia TAKE 1 CAPSULE BY MOUTH THREE TIMES DAILY IN THE MORNING, EVENING, AND BEDTIME 90 capsule 1 025 2024 Discontinued Active Problems Problem Noted Date Diagnosed Date 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 She will take Tylenol as needed for the next 3 days until she has eye surgery. 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 She will continue Tylenol as needed breakthrough pain + diclofenac gel and heat pad on affected area. Refer to PT Acute left-sided low back pain with bilateral sc iatica 03/07/2025 Assessment & Plan (03/07/2025 2:14 PM EDT): See hip sprain above Fall (on)(from) sidewalk curb, initial encounter 03/07/2025 Rash 07/18/2024 Assessment & Plan (07/18/2024 2:34 PM EST): ED precautions reviewed benadryl+ prednisone Hydrocortisone for skink itchiness apply on affected area BID no more than 2 weeks Allergic reaction to fruit 07/18/2024 Bilateral shoulder pain 02/04/2024 Postural dizziness 08/21/2023 Overview (08/21/2023): 1. Followed by Dr. Love at [facility] for similar sx. Last visit 02/2023 with unremarkable echocardiogram and LE venous duplex ultrasound with mild reflux otherwise unremarkable. Plan for stress test with follow up after. EKG with sinus bradycardia Orthostatic vital signs negative although HR persistently bradycardic Migraine without status migrainosus, not intract able 01/27/2023 Overview (04/28/2023): Topiramate 25mg daily Previously followed by [facility] neurology, lost to follow up Assessment & Plan (01/27/2023 12:56 PM EDT): RESTART topiramate 25mg. Reviewed administration, risks, side effects Increase hydration Contact HC if sx worsen or are associated with fever, weakness, position changes, sneezing/coughing/exercise Chronic idiopathic constipation 01/27/2023 Assessment & Plan (01/27/2023 12:57 PM EDT): Senna refilled Asthma 09/04/2022 Overview (01/27/2023): Flovent b.i.d Levalbuterol PRN Singulair Saw pulmonology for persistent dyspnea. PFT's negative for COPD, mild asthma. Discussed stepping down symbicort therapy per last visit note 10/2022 Referred to LDLCT screening d/t smoking hx Assessment & Plan (01/27/2023 10:11 AM EDT): Continue current regimen Follow up as scheduled with pulmonology Healthcare maintenance 07/24/2022 Overview (08/21/2023): Pap: Followed by Kyle. Hx of abnormal pap, reports normal pap earlier in 2021. Records not in chart, will request Mammogram:10/2022 BIRADS-3, likely benign.repeat in an additional 6 months-has upcoming appointment BMD: Routine age 64 CRC: Referral to GI for screening 08/2022 Immunizations: Declines all vaccines today Vision: 03/2023- [facility] HIV: Neg 2021 Hepatitis:Neg 2016 Assessment & Plan (01/27/2023 10:13 AM EDT): Will requests mammogram resuslts Pt provided with GI phone number to [...] covid booster, declines shingles today Vision: 10/2021 [facility] Dental: HIV: Neg 2021 Hepatitis:Neg 2016 Coronary artery disease invo lving [place] [facility] without angina pectoris 07/22/2022 Overview (02/04/2024): Followed by cardiology Hypercholesterolemia 02/09/2019 Overview (09/05/2022): Atorvastatin 80mg Assessment & Plan (03/24/2025 12:05 PM EDT): The 10-year ASCVD risk score (Twin ADORNO, et al., 2019) is: 13.6% Values used to calculate the score: Age: 59 years Sex: Female Is Non- : No Diabetic: Yes Tobacco smoker: No Systolic Blood Pressure: 132 mmHg Is BP treated: Yes HDL Cholesterol: 48 mg/dL Total Cholesterol: 312 mg/dL - On max dose atorvastatin and Zetia with persistent significant ASCVD elevation. Discussed administration, risks, side effects of Repatha and patient agrees to current medication Assessment & Plan (04/29/2023 10:38 AM EDT): Repeat fasting lipid panel today Calculate ASCVD risk pending results Obstructive sleep apnea syndrome 2018 Fibromyalgia 04/29/2018 Overview (09/05/2022): Gabapentin 300mg t.i.d Depression 09/24/2017 Overview (01/27/2023): Well connected with therapy and psychiatry (Dr. Mars). See's therapist weekly Trazodone 50mg Sertraline 200mg Buproprion XL 150mg Assessment & Plan (10/28/2022 12:46 PM EDT): PHQ-9 today 21 Continue current treatment plan per psychiatry and therapy. Pt declines further intervention at this time. Denies SI or thoughts of self harm Acquired hypothyroidism 04/01/2017 Overview (09/04/2022): Levothyroxine 175 mcg Assessment & Plan (04/29/2023 10:39 AM EDT): Repeat TSH today Assessment & Plan (10/28/2022 12:45 PM EDT): Repeat TSH ordered today Essential hypertension 04/01/2017 Overview (08/21/2023): lisinopril 2.5mg HCTZ 12.5mg amlodipine 5mg Followed by [facility] Dr. Love for hx of CP and syncope with negative eval 06/2023-negative echo Assessment & Plan (03/24/2025 12:02 PM EDT): BP elevated above diabetic goal of 130/80. She did not take meds today She denies elevated readings at home Encouraged low sodium diet and medication adherence Labs ordered today Assessment & Plan (07/18/2024 2:33 PM EST): Today elevated she did not took her medications, I advise not to miss any dose and f/u with PCP Assessment & Plan (08/21/2023 6:15 AM EST): Well controlled Continue current regimen Follow up as scheduled with cardiology Assessment & Plan (04/30/2023 10:36 AM EDT): STOP atentolol 12.5mg Follow up as scheduled with cardiology Continue to monitor BP Reviewed ED precautions to include chest pain, shortness of breath, severe headache, sudden vision changes or BP >=180/>=120 mmHg. Contact HC if three or more BP readings >140/90. Assessment & Plan (01/27/2023 10:07 AM EDT): BP well controlled Extensive hx of chest pain and dyspnea with extensive negative evaluation. Has upcoming echocardiogram and venous ultrasounds scheduled through cardiology. Also followed by pulmonology with unremarkable PFT's. Follow up as scheduled with cardiology ED precautions reviewed Assessment & Plan (10/28/2022 12:48 PM EDT): BP slightly elevated in office. Pt did not take medications this morning. Otherwise asx. Pt will continue to monitor and follow up in 1 month or sooner if BP readings persistently >140/90 with medication. Will reach out to nurses to check [...] Metformin 1000mg b.I.d Maintenance: Eye Exam: 03/2023 [facility] Diabetic foot exam:12/2023 RISK: 1 Encouraged regular aerobic exercise for improved glycemic control Encouraged daily foot checks Encouraged lean protein snacks and to avoid foods high in sugar and simple carbohydrates Treatment Goals: A1c goal: <7% FBG goal: <130 2 hour post prandial goal: <180. Assessment & Plan (03/24/2025 12:03 PM EDT): Lab Results Component Value Date HGBA1C 7.9 (A) 02/03/2025 A1c above goal of 7 today Pt ok to proceed with surgery although ideal goal A1c is 7. However surgery specific risk is low Assessment & Plan (08/21/2023 6:23 AM EST): Lab Results Component Value Date HGBA1C 9.3 (A) 04/29/2023 Pt with hypoglycemia with current standard 12 units pre meal. Pt self administering a sliding scale Will standardize sliding scale with the following: BS 150-199=8 units BS 200-249= 10 units Lab Results Component Value Date HGBA1C 10.2 (A) 07/31/2023 A1c increasing INCREASE lantus to 26 units at bedtime Assessment & Plan (04/30/2023 10:42 AM EDT): Lab Results Component Value Date HGBA1C 9.3 (A) 04/29/2023 Pt with hypoglycemia with current standard 12 units pre meal. Pt self administering a sliding scale Will standardize sliding scale with the following: BS 150-199=8 units BS 200-249= 10 units BS 250-300=12 units BS >300=14 units DECREASE evening lantus to 22 units. Encouraged high protein snack before bed to avoid overnight lows Will task RN's to send note to endocrinology re insulin adjustments Pt has glucose tabs. Reviewed instruction for use Follow up as scheduled with endo in 2 weeks Lantus 22 units every evening Assessment & Plan (01/27/2023 10:09 AM EDT): Lab Results Component Value Date HGBA1C 9.2 (A) 01/26/2023 Pt followed closely by [facility] endocrinology Continue current plan as directed Unclear if patient was discontinued glipizide. Will request recent endocrinology note to verify. Assessment & Plan (10/28/2022 12:49 PM EDT): Lab Results Component Value Date HGBA1C 9.7 (A) 10/22/2022 A1c improving from 12% at last visit 07/2022. Continue current regimen per endocrinology. Will request recent notes. Assessment & Plan (09/05/2022 12:42 AM EST): - Increase lantus to 34 units daily - Continue trulicity 4.5mg SQ - Continue glipizide 5mg b.i.d - Continue metformin 1000mg b.i.d - Continue to work with DM educator to improve medication adherence Maintenance: Eye Exam: 10/2021 [facility] Diabetic foot exam:03/2022, RISK: 1 Microalbumin: 03/2022, [...] F/U 1 month Maintenance: Eye Exam: 10/2021 [facility] Diabetic foot exam:03/2022, RISK: 1 Microalbumin: 03/2022, [...] Encounters Date Type Department Care Team Description 05/01/2025 Patient Outreach [address] [address] Nemo Savage [facility] Care Coordination (C3 [facility] Maya Spicer telephone call outreach) 04/21/2025 Refill [facility] [address] [place] [address] Nemo Savage [facility] Type 2 diabetes mellitus with hyperglycemia, with long-term current use of insulin (CMS/HCC) 04/19/2025 Refill [facility] [address] [place] [address] Nemo Savage [facility] Fibromyalgia 04/03/2025 Patient Outreach [address] [address] Nemo Savage [facility] Care Coordination (C3 -[facility] Maya Spicer telephone call outreach) 04/03/2025 Patient Outreach [address] [address] Nemo Savage [facility] Care Management (C3CM- Initial assessment/enrollmen t) 03/27/2025 Travel 03/24/2025 9:45 AM EDT Office Visit [address] [address] Nohemi Reeder CNP Pre-op evaluation (Primary Dx); Essential hypertension; Type 2 diabetes mellitus with hyperglycemia, with long-term current use of insulin (CMS/[facility]); 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; Hypercholesterolemia 03/24/2025 Results Follow-Up [facility] [address] [place] [phone] Nemo Savage FNP TSH 03/24/2025 Travel 03/23/[address] [address] Nohemi Reeder CNP Chart Prep 03/22/2025 Results Follow-Up [facility] [address] [place] [phone] Nemo Savage FNP Vascular US lower extremity arterial duplex bilateral with KELLEY 03/17/2025 Travel 03/14/2025 Patient Outreach [address] [address] Nemo Savage FNP Care Coordination ([facility]3 [facility] Maya Spicer telephone call outreach/) 03/13/2025 Refill [facility] [address] [place] [address] Nemo Savage FNP Chronic idiopathic constipation 03/08/2025 Telephone [facility] [address] [place] [address] Nemo Savage FNP Results 03/07/2025 11:15 AM EDT Office Visit [facility] [address] [place] [address] Vickie Hubbard MD Hip sprain, left, initial encounter (Primary Dx); Acute left-sided low back pain with bilateral sciatica; Fall (on)(from) sidewalk curb, initial encounter 03/07/2025 Travel 03/07/2025 Patient Outreach [facility] [address] [place] [address] Nemo Savage FNP Care Coordination ([facility] Maya Spicer telephone call outreach) 03/07/2025 Telephone [facility] [address] [place] [address] Nemo Savage FNP preop 03/07/2025 Patient Outreach [facility] [address] [place] [address] Nemo Savage FNP Care Coordination ([facility] Maya Spicer chart review) 03/07/2025 Patient Outreach [facility] [address] [place] [address] Nemo Savage FNP Care Coordination (C3CM- chart review) 03/07/2025 Patient Outreach [facility] [address] [place] [address] Nemo Savage FNP 03/06/2025 Telephone [facility] [address] [place] [address] Nemo Savage FNP Nurse Triage 02/27/2025 Refill [facility] [address] [place] [address] Nemo Savage FNP Fibromyalgia 02/18/2025 Refill [facility] [address] [place] [address] Crystal Vital, Yesika Type 2 diabetes mellitus with hyperglycemia, with long-term current use of insulin ([facility]) 02/18/2025 Refill [facility] [address] [place] [address] [facility] Migraine without status migrainosus, not intractable, unspecified migraine type; Fibromyalgia 02/14/2025 Travel 02/14/2025 Refill [facility] [address] [place] [address] [facility] Acute allergic reaction, initial encounter 02/09/2025 Refill [facility] [address] [place], [place] [phone] [facility] Type 2 diabetes mellitus with hyperglycemia, with long-term current use of insulin ([facility]) 02/07/2025 Telephone [facility] [address] [place], [place] [phone] [facility] pre-op notes faxed from Last 3 Months Immunizations Immunization Administration Dates Next Due Influenza injectable quadriv [...] Date Recorded Patient Health Questionnaire-9 Score 8 02/03/2025 Patient Health Questionnaire-9 Score 8 02/03/2025 Last PHQ-9: Questionnaire Data Not on file 0 02/03/2025 Housing Stability Answer Date Recorded What is your housing situation today? I have noemi osborn 02/03/[address] you li ve. Do you have problems with any of the following? None of the above 02/03/2025 Food Insecurity Answer Date Recorded Within the past 12 months, y ou worried that your food would run out before you got money to buy more: Sometimes True 2024 Within the past 12 months,th e food you bought just didn't last and you didn't have enough money to get more: Sometimes True 03/14/2025 Transportation Answer Date Recorded In the past 12 months, has l ack of transportation kept you from medical appts, meetings, work or from getting things needed for daily living? Yes, it has kept me from medical appointments or getting medications. 03/14/2025 Utilities Answer Date Recorded In the past 12 months, has t he electric, gas, oil or water company threatened to shut off services in your home? No 02/03/2025 Depression Answer Date Recorded Patient Health Questionnaire-2 Score 2 02/03/2025 Internet Access Answer Date Recorded Internet Access Q1 Yes 02/03/2025 Internet Access Q2 Not on file 02/03/2025 Comments Unknown Sex and Gender Information Value Date Recorded Sex Assigned at Female 06/16/2022 10:31 AM EDT Legal Sex Female 10:31 AM EDT Gender Identity Female 11/28/2024 11:32 AM EDT Sexual Orientation Straight 11/28/2024 11 :32 AM EDT Last Filed Vital Signs Vital Sign Reading Time Taken Comments Blood Pressure 128/62 03/27/2025 2:09 PM EDT Pulse 75 03/27/2025 2:09 PM EDT Temperature 36.4 C (97.5 F) 03/24/2025 9:43 AM EDT Respiratory Rate 12 03/24/2025 9:43 AM EDT Oxygen Saturation 98% 03/24/2025 9:43 AM EDT Inhaled Oxygen Concentration - - Weight 103 kg (226 lb) 03/24/2025 9:43 AM EDT Height 167.6 cm (5' 6 ) 03/07/2025 11:31 AM EDT Body Mass Index 36.48 03/07/2025 11:31 AM EDT Plan of Treatment Upcoming Encounters Date Type Department Care Team (Late st Contact Info) Description 05/15/2025 10:30 AM EDT Medication Management [facility] [address] [place] [address] Crystal Vital, PharmD [address] [place] [address] 05/29/2025 9:45 AM EDT Office Visit [facility] [address] [place] [address] Maskell, Donalds, USED [employer] [address] [place] [address] Health Maintenance Due Date Last Done Comments CT Colonography 1964 FIT DNA/Cologuard 1964 FIT 1964 FOBT 1965 Sigmoidoscopy 1964 Zoster Vaccines (1 of 2) 2014 Pap Smear 07/25/2023 07/25/2020, 07/25/2020 RSV Patients and Patients Aged 60 years or older (1 - Risk 60-74 years 1-dose series) 2024 COVID-19 Vaccine (2024- season) 2025 04/07/2022, 04/07/2022, 09/04/2021, Additional history exists Influenza Vaccine (#1) 2025 , 06/17/2022, 05/10/2018, Additional history exists Diabetes: Hemoglobin A1C 06/24/20252 025, 02/03/2025, 10/31/2024, Additional history exists Cervical Cancer Screening 07/25/2025 HPV/Cotest 07/25/2025 07/25/2020 Lipid Panel 11/21/2025 11/21/2024, 12/2023, 04/29/2023, Additional history exists Eye Exam 12/22/2025 12/22/2024, 0 03/2025, 12/22/2024, Additional history exists Depression Screening 02/03/2026 02/03/2025, 02/04/20 25 Diabetes: Foot Exam 02/03/2026 02/03/2025, 02/03/2025, 02/03/2025, Additional history exists SDOH Screening 03/14/2026 03/14/2025 Alcohol/Substance Use Screening 03/24/2026 03/24/2025 Diabetes: Urine Protein Screening 03/24/2026 03/24/2025, 11/21/2024, 06/21/2024, Additional history exists Disability Screening 03/24/2026 03/24/2025 Tobacco Screening 03/24/2026 03/24/2025 Mammogram 12/19/2026 12/19/2024, 05/0 09/2023, 10/31/2022, Additional history exists DTaP/Tdap/Td Vaccines (2 - [...] 8.1(03/24/2025 10:27 AM EDT) No Crystal Vital, Yesika Procedures Procedure Name Priority Date/Time Associated Diagnosis Comments ALBUMIN, RANDOM URINE W/CREATININE Routine 03/24/2025 10:27 AM EDT Pre-op evaluation CBC WITH AUTO DIFFERENTIAL Routine 03/24/2025 10:27 AM EDT Pre-op evaluation COMPREHENSIVE METABOLIC PANEL Routine 03/24/2025 10:27 AM EDT Pre-op evaluation HEMOGLOBIN A1C Routine 03/24/2025 10:27 AM EDT Pre-op evaluation PROTHROMBIN TIME-INR Routine 03/24/2025 10:27 AM EDT Pre-op evaluation APTT Routine 03/24/2025 10:27 AM EDT Pre-op evaluation TSH Routine 03/24/2025 10:27 AM EDT 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 VASC US LOWER EXTREMITY ARTERIAL DUPLEX BILATERAL WITH KELLEY Routine 03/16/2025 2:25 PM EDT Bilateral lower extremity edema Decreased pedal pulses XR LUMBAR SPINE COMPLETE 4+ VIEWS Routine 03/07/2025 12:00 PM EDT Hip sprain, left, initial encounter Acute left-sided low back pain with bilateral sciatica Fall (on)(from) sidewalk curb, initial encounter XR HIP 2 OR 3 VIEWS LEFT Routine 03/07/2025 11:55 AM EDT Hip sprain, left, initial encounter BI MAMMOGRAM SCREENING TOMOSYNTHESIS BILATERAL Routine 12/19/2024 2:15 PM EDT LIPID PANEL, STANDARD Routine 11/21/2024 9:18 AM EDT HIV 1/2 ANTIGEN/ANTIBODY, FOURTH GENERATION W/RFL Routine 04/07/2022 9:59 AM EDT HPV MRNA E6/E7 Routine 07/25/2020 10:15 AM EST HM PAP/HPV Routine 07/25/2020 from Last 3 Months or Most Recently Relevant to Health Maintenance Results * Albumin, Random Urine W/Creatinine (03/24/2025 10:27 AM EDT) Creatinine, Urine 309.56 mg/dL [facility] Microalbumin Urine 13.0 mg/L H [facility] Microalbum Creatinine Ratio Ur 4.1 <30 ug/mg cr [facility] Comment:Albumin/Creatinine R atio Reference Ranges: Normal: < 30 ug/mg creatinine Microalbuminuria: 30 - 300 ug/mg creatinineClinical Albuminuria: > 300 ug/mg creatinine Urine (Urine, Random) 03/24/2025 10:27 AM EDT 03/24/2025 11:12 AM EDT Nohemi Reeder [facility] URINE ORDERABLES Nevaeh l Result [facility] [address] [place] [phone] * CBC auto differential (03/24/2025 10:27 AM EDT) White Blood Count 5.6 4.8 - 10.8 X10*3/uL [facility] Red Blood Count 4.47 4.20 - 5.50 X10*6/uL [facility] Hemoglobin 12.7 12.0 - 16.0 g/dl [facility] Hematocrit 38.0 37.0 - 47.0 % [facility] Mean Corpuscular Volume 85.0 80.0 - 98.0 fL [facility] Mean Corpuscular Hemoglobin 28.4 27.0 - 33.0 pg [facility] Mean Corpuscular HGB Conc 33.4 31.0 - 35.0 g/dl [facility] Red Cell Distribution Width 12.5 11.0 - 16.0 % [facility] Platelet Count 266 160 - 400 X10*3/uL [facility] Mean Platelet Volume 11.0 9.4 - 12.3 fL [facility] Neutrophils Percent Auto 49.2 45 - 73 % [facility] Imm Gran Pct Auto 0.2 0.0 - 0.4 % [facility] Lymphocytes Percent Auto 39.1 20 - 40 % [facility] Monocytes Percent Auto 7.0 2 - 11 % [facility] Eosinophils Percent Auto 3.6 0 - 4 % [facility] Basophils Percent Auto 0.9 0 - 2 % [facility] NRBC Pct Auto 0.0 0.0 - 0.2 /100WBC [facility] Neutrophils Absolute Auto 2.7 2.0 - 8.3 x10*3/uL [facility] Imm Gran Abs Auto 0.01 0.00 - 0.03 X10*3/uL [facility] Lymphocytes Absolute Auto 2.2 1.2 - 4.9 X10*3/uL [facility] Monocytes Absolute Auto 0.4 0.1 - 1.2 X10*3/uL [facility] Eosinophils Absolute Auto 0.2 0.0 - 0.4 X10*3/uL [facility] Basophils Absolute Auto 0.1 0.0 - 0.2 X10*3/uL [facility] NRBC Abs Auto 0.000 0.0 - 0.012 X10*3/uL [facility] Blood Venous blood specimen / Unknown 03/24/2025 10:27 AM EDT 03/24/2025 11:37 AM EDT Francisco Javierbrayden Reeder [facility] BLOOD ORDERABLES Nevaeh l Result [facility] [address] [place] [phone] * Partial Thromboplastin Time, Activated (APTT) (03/24/2025 10:27 AM EDT) Partial Thromboplastin Time 27.6 26.7 - 34.1 SEC [facility] Blood Venous blood specimen / Unknown 03/24/2025 10:27 AM EDT 03/24/2025 11:33 AM EDT [facility] BLOOD ORDERABLES Nevaeh l Result Performing Organization Address [facility] Co de Phone Number [facility] [address] [place] [phone] * (ABNORMAL) Prothrombin Time-INR (03/24/2025 10:27 AM EDT) Prothrombin Time 9.8(L) 10.9 - 12.4 SEC [facility] INTERNATIONAL NORM RATIO 0.9 0.9 - 1.1 [facility] Comment:INTERNATIONAL NORMAL IZED RATIO (INR) REFERENCE RANGES Reference RangeFor patients not on anticoagulant therapy: 0.9 - 1.1INR ranges for oral anticoagulanttherapy:For prevention and treatment of venous thrombosis and pulmonary embolism: 2.0 - 3.0For acute myocardial infarction with aspirin therapy: 2.0 - 3.0For acute myocardial infarction without aspirin therapy: 3.0 - 4.0For patients with mechanical prosthetic heart valves: 2.5 - 3.5 Blood Venous blood specimen / Unknown 03/24/2025 10:27 AM EDT 03/24/2025 11:33 AM EDT [facility] BLOOD ORDERABLES Nevaeh l Result Performing Organization Address [facility] de Phone Number [facility] [address] [place] [phone] * (ABNORMAL) TSH (03/24/2025 10:27 AM EDT) Thyroid Stimulating Hormone 15.48(H) 0.32 - 4.0 uIU/mL [facility] Comment:Note: A sustained TS H level above 2.5 uIU/mL may warrant further investigation. TSH 3rd Generation ([facility]) Blood Venous blood specimen / Unknown 03/24/2025 10:27 AM EDT 03/24/2025 11:33 AM EDT [facility] LAB BLOOD ORDERABLES Final Re sult Performing Organization Address City/[facility] Co de Phone Number [facility] [address] [place] [phone] * (ABNORMAL) Hemoglobin A1c (03/24/2025 10:27 AM EDT) Hemoglobin A1c 8.1(H) <6.0 % [facility] Comment:Hemoglobin A1C Refer ence Range Adults: 4.8 - 6.0 % Non diabetic: < 6.0 % Goal: < 7.0 %Additional Action Suggested: > 8.0 %Note: Hemoglobin A1c results are invalid for patients with abnormal amounts of HbF. Blood transfusions may impact the HbA1c concentration in the patient sample. Estimated Average Glucose 186 mg/dL [facility] Comment:eAG = Estimated ave rage glucose which is %A1C expressed asaverage glucose, using the formula of the Y4P-FsmtnunGykpvko Glucose study (ADAG), Diabetes Care, Vol.31,#8,Mar. 2007 Blood Venous blood specimen / Unknown 03/24/2025 10:27 AM EDT 03/24/2025 11:37 AM EDT [facility] BLOOD ORDERABLES Nevaeh l Result Performing Organization Address [facility] Co de Phone Number [facility] [address] [place] [phone] * (ABNORMAL) Comprehensive Metabolic Panel (03/24/2025 10:27 AM EDT) Sodium 140 135 - 145 mmol/L [facility] Potassium 4.5 3.3 - 5.1 mmol/L [facility] Chloride 104 96 - 108 mmol/L [facility] Carbon Dioxide 30(H) 22 - 29 mmol/L [facility] Anion Gap 11(L) 12 - 20 [facility] Urea Nitrogen (BUN) 13 9 - 16 mg/dL [facility] Creatinine, Serum 0.91 0.5 - 1.4 mg/dL [facility] Estimated Glomerular Filt Rate >60 [facility] Comment:Chronic Kidney Disea se: Estimated GFR < 60 mL/min/1.18y2Rwmuin Kidney Disease: Estimated GFR < 15 mL/min/1.73m2 Glucose 183(H) 60 - 115 mg/dL [facility] Calcium 8.9 8.4 - 10.2 mg/dL [facility] Bilirubin, Total 0.2 0.0 - 1.0 mg/dL [facility] Aspartate Amino Transferase 23 5 - 31 U/L [facility] Alanine Aminotransferase 32(H) 0 - 31 U/L [facility] Total Protein 7.6 6.5 - 8.0 g/dL [facility] Albumin Level 4.3 3.5 - 5.0 g/dL [facility] Alkaline Phosphatase 113 39 - 117 U/L [facility] Blood Venous blood specimen / Unknown 03/24/2025 10:27 AM EDT 03/24/2025 11:33 AM EDT [facility] BLOOD ORDERABLES Nevaeh l Result [facility] [address] [place] [phone] * Vascular US lower extremity arterial duplex bilateral with KELLEY (03/16/2025 2:25 PM EDT) 03/16/2025 2:25 PM EDT Narrative [facility] - 03/16/2025 3:19 PM EDT [address] [address] Ultrasound Report Signed Patient: Vicky Stacy MR#: M [id number] : 1965 Acct:[id number] Age/Sex: 59 / F ADM Date: 03/16/25 Loc: . Attending Dr: Nemo SMART Ordering Physician: Nemo Savage Date of Service: 03/16/25 Procedure(s): US arterial duplex BI w/ KELLEY Accession Number(s): [id number] cc: Nemo Savage EXAMINATION: Noninvasive assessment of the bilateral lower extremities with ARTERIAL DUPLEX, ANKLE BRACHIAL INDICES (ABIs), and PULSE VOLUME RECORDINGS (PVRs). CLINICAL INFORMATION: Diabetes type 2. Decreased peripheral pulses. TECHNIQUE: Duplex Doppler techniques with waveform analysis and measurement of velocities in the bilateral common femoral, profunda femoris, superficial femoral, popliteal and tibial arteries were performed. Additionally, ankle pulse volume recordings, ankle pressure measurements and ankle brachial indices were obtained of the lower extremity arterial system bilaterally. The study was performed only at rest. COMPARISON: None FINDINGS: DIRECT DUPLEX DOPPLER FINDINGS: RIGHT LEG: Common femoral artery: 94 cm/s, phasicity: Biphasic. Profunda femoris artery: 55 cm/s, phasicity: Biphasic. Superficial femoral artery (proximal): 92 cm/s, phasicity: Triphasic. Superficial femoral artery (mid): 75 cm/s, phasicity: Triphasic-biphasic Superficial femoral artery (distal): 82 cm/s, phasicity: Triphasic. Popliteal artery: 84 cm/s, phasicity: Biphasic. Posterior tibial artery: 91 cm/s, phasicity: Triphasic. Peroneal artery: 53 cm/s, phasicity: Biphasic. Anterior tibial artery: 93 cm/s, phasicity: Triphasic. Dorsalis pedis artery: 49 cm/s, phasicity:Triphasic. LEFT LEG: Common femoral artery: 91 cm/s, phasicity: Biphasic. Profunda femoris artery: 56 cm/s, phasicity: Biphasic. Superficial femoral artery (proximal): 90 cm/s, phasicity: Triphasic. Superficial femoral artery (mid): 79 cm/s, phasicity: Triphasic-biphasic. Superficial femoral artery (distal): 59 cm/s, phasicity: Triphasic-biphasic. Popliteal artery: 68 cm/s, phasicity: Triphasic. Posterior tibial artery: 88 cm/s, phasicity: Triphasic-biphasic. Peroneal artery: 47 cm/s, phasicity: Biphasic. Anterior tibial artery: 82 cm/s, phasicity: Triphasic. Dorsalis pedis artery: 97 cm/s, phasicity: Triphasic. BRACHIAL PRESSURES: Right: 146 Left: Not documented. ANKLE PRESSURES: Right: PT 158, DP 183 Left: PT 155, DP 158 ANKLE-BRACHIAL INDEX: Right: 1.25 Left: 1.08 ANKLE PVR WAVEFORMS: Right: Not documented. Left: Not documented. US/US arterial duplex BI w/ KELLEY IMPRESSION: Right leg: Mild inflow disease. Left leg: Mild inflow disease. KELLEY Reference: - >1.4 = calcified vessels - 0.9 - 1.4 = normal - no significant arterial disease - 0.7 - 0.89 = mild peripheral arterial disease - 0.51 - 0.69 = moderate peripheral arterial disease - 0.50 = severe peripheral arterial disease - < .30 = critical arterial disease Electronically signed by: Jomar Jon MD 03/16/2025 03:16 PM EDT RP Dictated By: Jomar West MD Signed By: <Electronically signed by Jomar Lee MD in OV> 03/16/25 1516 DD/ 1425 TD/TT: 03/16/25 1451 Phlebotomist Supervisor/Instructor: Procedure Note Donotuseinterpreter, Image - 03/16/2025 [place] [address] Ultrasound Report Signed Patient: Barbara Stacy#: M [id number] : 1965Acct:[id number] Age/Sex: 59 / FADM Date: 03/16/25 Loc: . Attending Dr: Nemo SMART Ordering Physician: Nemo Savage Date of Service: 03/16/25 Procedure(s): US arterial duplex BI w/ KELLEY Accession Number(s): [id number] cc: Nemo Savage EXAMINATION: Noninvasive assessment of the bilateral lower extremities with ARTERIAL DUPLEX, ANKLE BRACHIAL INDICES (ABIs), and PULSE VOLUME RECORDINGS (PVRs). CLINICAL INFORMATION: Diabetes type 2. Decreased peripheral pulses. TECHNIQUE: Duplex Doppler techniques with waveform analysis and measurement of velocities in the bilateral common femoral, profunda femoris, superficial femoral, popliteal and tibial arteries were performed. Additionally, ankle pulse volume recordings, ankle pressure measurements and ankle brachial indices were obtained of the lower extremity arterial system bilaterally. The study was performed only at rest. COMPARISON: None FINDINGS: DIRECT DUPLEX DOPPLER FINDINGS: RIGHT LEG: Common femoral artery: 94 cm/s, phasicity: Biphasic. Profunda femoris artery: 55 cm/s, phasicity: Biphasic. Superficial femoral artery (proximal): 92 cm/s, phasicity: Triphasic. Superficial femoral artery (mid): 75 cm/s, phasicity: Triphasic-biphasic Superficial femoral artery (distal): 82 cm/s, phasicity: Triphasic. Popliteal artery: 84 cm/s, phasicity: Biphasic. Posterior tibial artery: 91 cm/s, phasicity: Triphasic. Peroneal artery: 53 cm/s, phasicity: Biphasic. Anterior tibial artery: 93 cm/s, phasicity: Triphasic. Dorsalis pedis artery: 49 cm/s, phasicity:Triphasic. LEFT LEG: Common femoral artery: 91 cm/s, phasicity: Biphasic. Profunda femoris artery: 56 cm/s, phasicity: Biphasic. Superficial femoral artery (proximal): 90 cm/s, phasicity: Triphasic. Superficial femoral artery (mid): 79 cm/s, phasicity: Triphasic-biphasic. Superficial femoral artery (distal): 59 cm/s, phasicity: Triphasic-biphasic. Popliteal artery: 68 cm/s, phasicity: Triphasic. Posterior tibial artery: 88 cm/s, phasicity: Triphasic-biphasic. Peroneal artery: 47 cm/s, phasicity: Biphasic. Anterior tibial artery: 82 cm/s, phasicity: Triphasic. Dorsalis pedis artery: 97 cm/s, phasicity: Triphasic. BRACHIAL PRESSURES: Right: 146 Left: Not documented. ANKLE PRESSURES: Right: PT 158, DP 183 Left: PT 155, DP 158 ANKLE-BRACHIAL INDEX: Right: 1.25 Left: 1.08 ANKLE PVR WAVEFORMS: Right: Not documented. Left: Not documented. US/US arterial duplex BI w/ KELLEY IMPRESSION: Right leg: Mild inflow disease. Left leg: Mild inflow disease. KELLEY Reference: - >1.4 = calcified vessels - 0.9 - 1.4 = normal - no significant arterial disease - 0.7 - 0.89 = mild peripheral arterial disease - 0.51 - 0.69 = moderate peripheral arterial disease - 0.50 = severe peripheral arterial disease - < .30 = critical arterial disease Electronically signed by: Jomar Jon MD 03/16/2025 03:16 PM EDT RP Dictated By: Jomar West MD Signed By: <Electronically signed by Jomar Lee MDin OV> 03/16/25 1516 DD/ 1425 TD/TT: 03/16/25 1451 Phlebotomist Supervisor/Instructor: [facility] USED [employer]CH[employer]IC CV VASCULAR PROCEDURES Final Result Performing Organization Address City/State/[facility] Co de Phone Number [facility] [address] [place] [phone] * XR Lumbar Spine Complete 4+ Views (03/07/2025 12:00 PM EDT) Anatomical Region Laterality Modality Spine, L-spine Radiographic Daylin ging 03/07/2025 12:0 0 PM EDT Narrative 03/07/2025 2:17 PM EDT [address] [address] XRay Report Signed Patient: Vicky Stacy MR#: M [id number] : 1965 Acct:[id number] Age/Sex: 59 / F ADM Date: 03/07/25 [facility] Dr: Vickie Hubbard MD Ordering Physician: Vickie Hubbard MD Date of Service: 03/07/25 Procedure(s): XR lumbar spine 4V min Accession Number(s): [id number] cc: Vikcie Hubbard MD; [facility] Examination: 5 view L-spine x-ray TECHNIQUE: AP, lateral, lateral spot, and bilateral oblique views History low back pain after falling COMPARISON: None FINDINGS: There is mild disc space narrowing in the lower thoracic spine. There is subtle retrolisthesis at L3-4 and L4-5. No fracture is identified. XR/XR lumbar spine 4V min IMPRESSION: No acute abnormality. Electronically signed by: Gio Garcia MD 03/07/2025 02:14 PM EDT RP Dictated By: Gio Garcia MD Signed By: <Electronically signed by Gio Garcia MD in OV> 03/07/25 1414 DD/ 1200 TD/TT: 03/07/25 1210 Phlebotomist Supervisor/Instructor: Procedure Note Marilou, Image - 03/07/2025 [facility] [address] [place] [address] XRay Report Signed Patient: Vicky Stacy#: M [id number] : 1965Acct:[id number] Age/Sex: 59 / FADM Date: 03/07/25 Loc: HO.HHX Attending Dr: Vickie Hubbard MD Ordering Physician: Vickie Hubbard MD Date of Service: 03/07/25 Procedure(s): XR lumbar spine 4V min Accession Number(s): [id number] cc: Vickie Hubbard MD; [facility] Examination: 5 view L-spine x-ray TECHNIQUE: AP, lateral, lateral spot, and bilateral oblique views History low back pain after falling COMPARISON: None FINDINGS: There is mild disc space narrowing in the lower thoracic spine. There is subtle retrolisthesis at L3-4 and L4-5. No fracture is identified. XR/XR lumbar spine 4V min IMPRESSION: No acute abnormality. Electronically signed by: Gio Garcia MD 03/07/2025 02:14 PM EDT Dictated By: Gio Garcia MD Signed By: <Electronically signed by Gio Garcia MD in OV> 03/07/25 1414 DD/ 1200 TD/TT: 03/07/25 1210 Phlebotomist Supervisor/Instructor: Vickie Hubbard MD IMG XR PROCEDURES Final Result * XR Hip 2 or 3 Views Left (03/07/2025 11:55 AM EDT) Anatomical Region Laterality Modality Lower Extremities, Hip Left Radiograp hic Imaging 03/07/2025 11:5 5 AM EDT Narrative 03/07/2025 2:15 PM EDT [address] [address] XRay Report Signed Patient: Vicky Stacy MR#: M [id number] : 1965 Acct:[id number] Age/Sex: 59 / F ADM Date: 03/07/25 Loc: HO.HHCX Attending Dr: Vickie Hubbard MD Ordering Physician: Vickie Hubbard MD Date of Service: 03/07/25 Procedure(s): XR hip LT min 2V Accession Number(s): [id number] cc: Vickie Hubbard MD; [facility] EXAMINATION: XR HIP, LEFT CLINICAL INFORMATION: sp fall / left hip + LBP COMPARISON: None available. TECHNIQUE: Two views of the left hip. FINDINGS: No fracture line or deformity is identified. There is no joint space narrowing. Acetabular osteophyte is noted. There are moderate vascular calcifications. XR/XR hip LT min 2V IMPRESSION: No acute abnormality. Electronically signed by: Gio Garcia MD 03/07/2025 02:12 PM EDT RP Dictated By: Gio Garcia MD Signed By: <Electronically signed by Gio Garcia MD in OV> 03/07/25 1412 DD/ 1155 TD/TT: 03/07/25 1210 Phlebotomist Supervisor/Instructor: Procedure Note Donotuseinterpreter, Image - 03/07/[address] [address] XRay Report Signed Patient: Vicky StacyMR#: Brandon [id number] : 1965Acct:[id number] Age/Sex: 59 / FADM Date: 03/07/25 Loc: HO.HHCX Attending Dr: Vickie Hubbard MD Ordering Physician: Vickie Hubbard MD Date of Service: 03/07/25 Procedure(s): XR hip LT min 2V Accession Number(s): [id number] cc: Vickie Hubbard MD; Nemo Savage USED [employer]IC EXAMINATION: XR HIP, LEFT CLINICAL INFORMATION: sp fall / left hip + LBP COMPARISON: None available. TECHNIQUE: Two views of the left hip. FINDINGS: No fracture line or deformity is identified. There is no joint space narrowing. Acetabular osteophyte is noted. There are moderate vascular calcifications. XR/XR hip LT min 2V IMPRESSION: No acute abnormality. Electronically signed by: Gio Garcia MD 03/07/2025 02:12 PM EDT Dictated By: Gio Garcia MD Signed By: <Electronically signed by Gio Garcia MD in OV> 03/07/25 1412 DD/ 1155 TD/TT: 03/07/25 1210 Phlebotomist Supervisor/Instructor: Vickie Hubbard MD IMG XR PROCEDURES Final Result * BI Mammogram Screening Tomosynthesis Bilateral (12/19/2024 2:15 PM EDT) Anatomical Region Laterality Modality Breast Bilateral Mammography 12/19/2024 2:15 PM EDT Narrative 12/25/2024 9:33 PM EDT [facility] [address] [place] [address] Mammography Report Signed Patient: Vicky Stacy MR#: M [id number] : 1965 Acct:[id number] Age/Sex: 59 / F ADM Date: 12/19/24 Loc: HO.MAMMO Attending Dr: Nemo Savage USED [employer]CH[employer]IC Ordering Physician: Nemo Savage USED [employer] Results: 2Beni gn Findings Date of Service: 12/19/24 Follow Up: 1 Year From [facility] Mammogram Procedure(s): MM tomosynthesis screening BI Accession Number(s): [id number] cc: Nemo Savage USED [employer] MECH[employer]IC EXAMINATION: MM SCREENING DIGITAL BREAST TOMOSYNTHESIS, BILATERAL CLINICAL INFORMATION: Screening. Asymptomatic. COMPARISON: Mammography: Comparison is made with available priors TECHNIQUE: Digital breast mammography with tomosynthesis is performed in both the craniocaudal and mediolateral oblique views along with computer-aided detection (CAD). FINDINGS: There are scattered areas of fibroglandular density (ACR BI-RADS breast composition Category b). Calcifications in the upper outer left breast are stable. There are no significant masses, abnormal calcifications, or other abnormalities. MM/MM tomosynthesis screening BI IMPRESSION: No mammographic evidence of malignancy. ASSESSMENT: BI-RADS BI-RADS 2 - Benign Findings RECOMMENDATION: Routine annual mammography screening. 1 year F/U This examination should not preclude the clinical evaluation of a suspicious palpable abnormality. This patient's information was entered into a reminder system with a target due date for their next mammogram. Electronically signed by: Alissa Bone DO 12/25/2024 09:30 PM EDT Dictated By: Alissa Bone DO Signed By: <Electronically signed by Alissa Bone DO in OV> 12/25/24 2130 DD/ 1415 TD/TT: 12/19/24 1430 Phlebotomist Supervisor/Instructor: Procedure Note Donotuseinterpreter, Image - 12/25/2024 [facility] [address] [place] [address] Mammography Report Signed Patient: Vicky Stacy#: M [id number] : 1965Acct:[id number] Age/Sex: 59 / FADM Date: 12/19/24 Loc: GABI Attending Dr: Nemo Savage USED [employer] MECH[employer]IC Ordering Physician: Nemo Savage FNPResults: 2Beni gn Findings Date of Service: 12/19/24Follow Up: 1 Year From [facility] Mammogram Procedure(s): MM tomosynthesis screening BI Accession Number(s): [id number] cc: Nemo Savage USED [employer] MECH[employer]IC EXAMINATION: MM SCREENING DIGITAL BREAST TOMOSYNTHESIS, BILATERAL CLINICAL INFORMATION: Screening. Asymptomatic. COMPARISON: Mammography: Comparison is made with available priors TECHNIQUE: Digital breast mammography with tomosynthesis is performed in both the craniocaudal and mediolateral oblique views along with computer-aided detection (CAD). FINDINGS: There are scattered areas of fibroglandular density (ACR BI-RADS breast composition Category b). Calcifications in the upper outer left breast are stable. There are no significant masses, abnormal calcifications, or other abnormalities. MM/MM tomosynthesis screening BI IMPRESSION: No mammographic evidence of malignancy. ASSESSMENT: BI-RADS BI-RADS 2 - Benign Findings RECOMMENDATION: Routine annual mammography screening. 1 year F/U This examination should not preclude the clinical evaluation of a suspicious palpable abnormality. This patient's information was entered into a reminder system with a target due date for their next mammogram. 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 IMG BI PROCEDURES Final Resul t * (ABNORMAL) Lipid Panel, Standard (11/21/2024 9:18 AM EDT) Triglycerides 193(H) <150 mg/dL [facility] Comment:Desirable Triglyceri de: less than 150 mg/dLBorderline High Triglyceride 150-199 mg/dLHigh Triglyceride: 200-499 mg/dLVery High Triglyceride: greater than or equal to 5OO mg/dL Cholesterol 312(H) <200 mg/dL [facility] Comment:Desirable Cholestero l: less than 200 mg/dLBorderline High Cholesterol: 200-239 mg/dLHigh Cholesterol: greater than 239 mg/dL LDL Cholesterol Calculated 226(H) <100 mg/dL [facility] Comment:Desirable LDL: less than 100 mg/dLNear Optimal/Above Optimal LDL: 110- 129 mg/dLBorderline High LDL: 130-159 mg/dLHigh LDL: 160-189 mg/dLVery High LDL: greater than or equal to 190 mg/dL HDL Cholesterol 48 >40 mg/dL [facility] Comment:Desirable HDL: great er than 40 mg/dL Note: This HDL assay may give artificially low results in patients with liver disease. 11/21/2024 9:18 AM EDT 11/21/2024 11:11 AM EDT [facility] LAB BLOOD ORDERABLES Final Re sult [facility] [address] [place] [address] [phone] * HIV 1/2 ANTIGEN/ANTIBODY,FOURTH GENERATION W/RFL (04/07/2022 9:59 AM EDT) HIV-1/2 ANTIGEN AND ANTIBODIES, 4TH GENERATION W/ REFLEX NON-[facility]ACT [facility] Comment: HIV-1 antigen and HIV-1/HIV-2 antibodies were not detected. There is no laboratory evidence of HIV infection. PLEASE NOTE: This information has been disclosed to you from records whose confidentiality may be protected by state law. If your state requires such protection, then the state law prohibits you from making any further disclosure of the information without the specific written consent of the person to whom it pertains, or as otherwise permitted by law. A general authorization for the release of medical or other information is NOT sufficient for this purpose. For additional information please refer to http://education.Odersun.DNage/faq/VZS096 (This link is being provided for informational/ educational purposes only.) The performance of this assay has not been clinically validated in patients less than 2 years old. 04/07/2022 9:59 AM EDT Joy Delcid [employer] LAB BLOOD ORDERABLES Final Res ult [facility] [address] * (ABNORMAL) HPV mRNA E6/E7 (07/25/2020 10:15 AM EST) HPV nRNA E6/E7 Detected (A) Not Detected [facility] Comment: This test was performed using the APTIMA HPV Assay ([employer] This assay detects E6/E7 viral messenger RNA (mRNA) from 14 high-risk HPV types (16,18,31,33,35,39,45,51,52,56,58,59,66,68). The analytical performance characteristics of this assay have been determined by [employer]. The modifications have not been cleared or approved by the FDA. This assay has been validated pursuant to the CLIA regulations and is used for clinical purposes. 07/25/2020 10:1 5 AM EST Beverly MUNSON LAB BLOOD ORDERABLES Nevaeh fischer Result [facility] [address] * Pap Smear (07/25/2020) Pap smear Preformed Historical Provider MD HEALTH MAINTENANCE Final Result from Last 3 Months or Most Recently Relevant to Health Maintenance Insurance Care Teams Table Inspector Relationship Specialty Start Date End Date Nemo Savage, USED CAR MAKE READY MECHANIC [address] [place] [address] PCP - General Family Medicine 04/14/22 Crystal Vital PharmD [address] [place] [address] Pharmacist Internal Medicine 05/16/24 Carlos A Faustin, LAYNE [address] [place] [address] Registered Nurse Family Medicine 03/07/25 Maya Spicer 03/07/25
--- OUTSIDE RECORDS SUMMARY | 2025-05-09 11:42 | XMS_ITS | Encounter Summary ---
Author Organization [employer] Address [address] [place] [address] 7t [place] [address] Care Team Providers Care Assembly Member Name Role Phone [facility] Primary Care Provider [phone] Crystal Vital PharmD Unavailable Carlos A Faustin RN Unavailable [phone] Maya Spicer Unavailable Reason for Visit * Reason Comments Med Refill Encounter Details Date Type Department Care Team (Late st Contact Info) Description 03/22/2024 Refill [facility] MEDICINE [address] [place], [place] [phone] [facility] [address] [place] [address] Type 2 diabetes mellitus with hyperglycemia, with long-term current use of insulin ([facility]) Social History Tobacco [...] the past 12 months, has t he [employer], gas, oil or water [employer] threatened to shut off services in your [...] Description 05/15/2025 10:30 AM EDT Medication Management [facility] MEDICINE [address] [place] [address] Crystal Vital, Yesika [address] [place] [address] 05/29/2025 9:45 AM EDT Office Visit [facility] CHC MED & PEDS [address] [place] [address] [facility] [address] [place] [address] documented as of this encounter Goals Goal Patient Goal Type Associated Problems Recent Progress Patient-Stated? Author Hemoglobin A1c < 7.5 Result Component 8.1(03/24/2025 10:27 AM EDT) No Crystal Vital, PharmD documented as of this encounter Visit Diagnoses Diagnosis Type 2 diabetes mellitus with hyperglycemia, with long-term current use of insulin ([facility]) documented in this encounter Additional Health Concerns Assessment Noted Time PHQ-9 Depression Total Score: 9 02/04/20 24 11:53 AM EDT documented as of this encounter Care Teams Assembly Member Relationship Specialty Start Date End Date Nemo Savage FNP [address] [place] [address] PCP - General Family Medicine 04/14/22 Crystal Vital, VerenaD [address] [place] [address] Pharmacist Internal Medicine 05/16/24 Carlos A Faustin, LAYNE [address] [place] [address] Registered Nurse Family Medicine 03/07/25 Maya Spicer 03/07/25 documented as of this encounter
--- OUTSIDE RECORDS SUMMARY | 2025-05-09 11:42 | XMS_ITS | Encounter Summary ---
Author Organization [employer] Address [address] [facility] 7 [place] [address] Care Team Providers Care Gas Usage Meter Clerk Name Role Phone [facility] Primary Care Provider Crystal Vital PharmD Unavailable Carlos A Faustin RN Unavailable [phone] Maya Spicer Unavailable Reason for Visit * Reason Onset Date Comments Appointment Request 07/16/2023 Encounter Details Date Type Department Care Team (Late st Contact Info) Description 07/16/2023 Telephone [facility] MEDICINE [address] [place], [place] [phone] [facility] [address] [place] [address] Appointment Request Social History Tobacco Use Types [...] EST Tc from Sabrina working with [employer] to schedule a physical appt because pt is overdue. Child Development Instructor did not see anything available. If any questions please contact Sabrina at [phone]. documented in this encounter Plan of Treatment Upcoming Encounters Date Type Department Care Team (Late st Contact Info) Description 05/15/2025 10:30 AM EDT Medication Management [facility] MEDICINE [address] [place] [address] Crystal Vital, PharmD [address] [place] [address] 05/29/2025 9:45 AM EDT Office Visit [facility] CHC MED & PEDS [address] [place] [address] Nemo Savage FNP [address] [place] [address] documented as of this encounter Visit Diagnoses Not on filedocumented in this encounter Additional Health Concerns Assessment Noted Time PHQ-9 Depression Total Score: 21 023 8:54 AM EST documented as of this encounter Care Teams Gas Usage Meter Clerk Relationship Specialty Start Date End Date Nemo Savage CEMENT AND CONCRETE PLANT WORKER [address] [place] [address] PCP - General Family Medicine 04/14/22 Crystal Vital, VerenaD [address] [place] [address] Pharmacist Internal Medicine 05/16/24 Carlos A Faustin, LAYNE [address] [place] [address] Registered Nurse Family Medicine 03/07/25 Maya Spicer 03/07/25 documented as of this encounter
--- OUTSIDE RECORDS SUMMARY | 2025-05-09 11:42 | XMS_ITS ---
Author Organization [employer] Address [address] [place] [address] 7 [place] [address] Care Team Providers Care Piano Maker Name Role Phone Nemo Savage BERRY Primary Care Provider [phone] Crystal Vital PharmD Unavailable Carlos A Faustin RN Unavailable [phone] Maya Spicer Unavailable CM Complex Status:Outreach In Progress (Enrolling) Start date:03/07/2025 Enrollment reason:ADT Feed Overview ED- Patient went to [facility] ED on 03/06/25. . Case Team Name Relationship Phone Carlos A Faustin RN(Responsible Staff) Registered Micah david [phone] Continued Care and Services Coordination
--- OUTSIDE RECORDS SUMMARY | 2025-05-09 11:42 | XMS_ITS | Encounter Summary ---
Author Organization [employer] Address [address] [facility] 7t [place] [address] Care Team Providers Care Steward/Stewardess Dining Room Name Role Phone [facility] Care Provider [phone] Crystal Vital PharmD Unavailable Carlos A Faustin RN Unavailable [phone] Maya Spicer Unavailable Encounter Details Date Type Department Care Team (Late st Contact Info) Description 02/25/2024 Orders Only [facility] MEDICINE 230 [place], [place] [phone] Yolette Brown NP [address] [place], [place] [phone] Social History Tobacco Use Types Packs/Day Years [...] Description 05/15/2025 10:30 AM EDT Medication Management [facility] MEDICINE [address] [place] [address] Crystal Vital PharmD [address] [place] [address] 05/29/2025 9:45 AM EDT Office Visit [facility] CHC MED & PEDS [address] [place] [address] Nemo Savage FNP [address] [place] [address] documented as of this encounter Goals Goal [...] documented as of this encounter Care Teams Steward/Stewardess Dining Room Relationship Specialty Start Date End Date Nemo Savage FNP [address] [place] [address] PCP - General Family Medicine 04/14/22 Crystal Vital, VerenaD [address] [place] [address] Pharmacist Internal Medicine 05/16/24 Carlos A Faustin, LAYNE [address] [place] [address] Registered Nurse Family Medicine 03/07/25 Maya Spicer 03/07/25 documented as of this encounter
--- OUTSIDE RECORDS SUMMARY | 2025-05-09 11:42 | XMS_ITS | Encounter Summary ---
Author Organization [employer] Address [address] [facility] 7 [place] [address] Care Team Providers Care Logistics System Engineer Name Role Phone [facility] Primary Care Provider Crystal Vital PharmD Unavailable Carlos A Faustin RN Unavailable [phone] Maya Spicer Unavailable Reason for Visit * Reason Onset Date Comments Pre-op Visit 01/24/2025 Encounter Details Date Type Department Care Team (Late st Contact Info) Description 01/24/2025 Telephone [facility] MEDICINE [address] [place], [place] [phone] [facility] [address] [place] [address] Pre-op Visit Social History Tobacco Use Types Packs/Day Years [...] encounter Miscellaneous Notes * Telephone Encounter - Carmen Knight - 01/25/2025 9:22 AM EDT Facility agreed to pre op appointment on 02/08/25 at 02:45PM * Telephone Encounter - Lucy Rajan - 01/24/2025 2:37 PM EDT Date of Surgery: 02/21/2025 Surgical procedure being done: cataract surgery left eye Type of anesthesia: MAC Lab needed: No EKG: No Surgeon's name: Arpan Vera Facility name: [facility] Surgeon's office number: [phone] Surgeon's office fax number: [phone] Contact name (person you spoke with): frieda Last office note from surgeon requested: No Send Message to Carmen Knight and Kenji Muller documented in this encounter Plan of Treatment Upcoming Encounters Date Type Department Care Team (Late st Contact Info) Description 05/15/2025 10:30 AM EDT Medication Management [facility] MEDICINE [address] [place] [address] Crystal Vital PharmD [address] [place] [address] 05/29/2025 9:45 AM EDT Office Visit [facility] CHC MED & PEDS [address] [place] [address] [facility] [address] [place] [address] documented as of this encounter Goals Goal Patient Goal Type Associated Problems Recent Progress Patient-Stated? Author Hemoglobin A1c < 7.5 Result Component 8.1(03/24/2025 10:27 AM EDT) No Crystal Vital, Yesika documented as of this encounter Visit Diagnoses Not on filedocumented in this encounter Additional Health Concerns Assessment Noted Time PHQ-9 Depression Total Score: 8 11/01/19 25 1:04 PM EDT documented as of this encounter Care Teams Logistics System Engineer Relationship Specialty Start Date End Date [facility] [address] [place] [address] PCP - General Family Medicine 04/14/22 Crystal Vital, VerenaD 230 [place] [address] Pharmacist Internal Medicine 05/16/24 Carlos A Faustin, RN [address] [place] [address] Registered Nurse Family Medicine 03/07/25 Maya Spicer 03/07/25 documented as of this encounter
--- OUTSIDE RECORDS SUMMARY | 2025-05-09 11:42 | XMS_ITS | Encounter Summary ---
Author Organization [employer] Address [address] [place] [address] 7t [place] [address] Care Team Providers Care Houseperson Name Role Phone Nemo Savage [employer] Primary Care Provider [phone] Crystal Vital PharmD Unavailable Carlos A Faustin RN Unavailable [phone] Maya Spicer Unavailable Reason for Referral * Consultation (Routine) - Pending Review Specialty Diagnoses / Procedures Referred By Jordan diallo Referred To Contact Pharmacy Diagnoses Type 2 diabetes mellitus with hyperglycemia, with long-term current use of insulin (CMS/HCC) Mackenzie Callahan MD [address] [place] [address] Phone: tel: fax: Referral ID Status Reason Start Date Expiration Date Visits Requested Visits Authorized [id number] Pending Review Consult and Treat 12/29/2024 12/29/2025 6 6 Encounter Details Date Type Department Care Team (Late st Contact Info) Description 12/29/2024 Orders Only [facility] MEDICINE [address] [place], [place] [phone] Mackenzie Callahan MD [address] [place], [place] [phone] Type 2 diabetes mellitus with hyperglycemia, with [...] Description 05/15/2025 10:30 AM EDT Medication Management [facility] MEDICINE [address] [place] [address] Crystal Vital, PharmD [address] [place] [address] 05/29/2025 9:45 AM EDT Office Visit [facility] CHC MED & PEDS [address] [place] [address] [facility] [address] [place] [address] Scheduled Referrals Name Type Priority Associated Diagnoses Orde r Schedule Referral to Pharmacy CDTM Outpatient Referral Routine Type 2 diabetes mellitus with hyperglycemia, with long-term current use of insulin ([facility]) Ordered: 12/29/2024 documented as of this encounter Goals Goal Patient Goal Type Associated Problems Recent Progress Patient-Stated? Author Hemoglobin A1c < 7.5 Result Component 8.1(03/24/2025 10:27 AM EDT) No Crystal Vital, PharmD documented as of this encounter Visit Diagnoses Diagnosis Type 2 diabetes mellitus with hyperglycemia, with long-term current use of insulin ([facility])- Primary documented in this encounter Additional Health Concerns Assessment Noted Time PHQ-9 Depression Total Score: 8 11/01/19 25 1:04 PM EDT documented as of this encounter Care Teams Houseperson Relationship Specialty Start Date End Date [facility] [address] [place] [address] PCP - General Family Medicine 04/14/22 Crystal Vital, PharmD [address] [place] [address] Pharmacist Internal Medicine 05/16/24 Carlos A Faustin, LAYNE [address] [place] [address] Registered Nurse Family Medicine 03/07/25 Maya Spicer 03/07/25 documented as of this encounter
--- OUTSIDE RECORDS SUMMARY | 2025-05-09 11:42 | XMS_ITS | Encounter Summary ---
Author Organization [employer] Address [address] [place] [address] 7 [place] [address] Care Team Providers Care Glassblower Name Role Phone JanetteNemo [facility] Primary Care Provider Crystal Vital PharmD Unavailable Carlos A Faustin RN Unavailable [phone] Maya Spicer Unavailable Encounter Details Date Type Department Care Team (Late st Contact Info) Description 07/23/2022 Abstract [facility] MEDICINE 230 [place], [place] [phone] TroyNemo [facility] [address] [place] [address] Social History Tobacco Use Types Packs/Day Years [...] AM EST documented as of this encounter Functional Status * Over the past 2 weeks, how often have you been bothered by any of the following problems? Question Answer Date of Assessment Author Little interest or pleasure in doing things Several days 07/24/2022 10:24 AM Fariba Tomlin [place] Feeling down, depressed, or hopeless Several days 07/24/2022 10:24 AM Fariba Gonzáles [place] Patient Health Questionnaire-2 Score 2 07/24/2022 10:24 AM Fariba Hanson [place] * If you checked off any problems on this questionnaire so far, Question Answer Date of Assessment Author How difficult have these problems made it for you to do your work, take care of things at home, or get along with other people? Somewhat difficult 07/24/2022 10:24 AM Fariba Gonzáles [place] * Over the past 2 weeks, how often have you been bothered by any of the following problems? Question Answer Date of Assessment Author Feeling tired or having little energy Several days 07/24/2022 10:24 AM Fariba Gonzáles [place] Poor appetite or overeating Several days 07/24/2022 10 :24 AM Fariba Cardona [place] Feeling bad about yourself - or that you are a failure or have let yourself or your family down Several days 07/24/2022 10:24 AM Fariba Gonzáles [place] Trouble concentrating on things, such as reading the newspaper or watching television Several days 07/24/2022 10:24 AM Fariba Gonzáles [place] Moving or speaking so slowly that other people could have noticed? Or the opposite - being so fidgety or restless that you have been moving around a lot more than usual. Several days 07/24/2022 10:24 AM Fariba Gonzáles MA Thoughts that you would be better off or hurting yourself in some way Not at all 07/24/2022 10:24 AM Fariba Gonzáles MA documented as of this encounter Plan of Treatment Upcoming Encounters Date Type Department Care Team (Late st Contact Info) Description 05/15/2025 10:30 AM EDT Medication Management [facility] MEDICINE [address] [place] [address] Crystal Vital, PharmD [address] [place] [address] 05/29/2025 9:45 AM EDT Office Visit [facility] CHC MED & PEDS [address] [place] [address] TroyNemo jimenez [facility] [address] [place] [address] documented as of this encounter Visit Diagnoses Not on filedocumented in this encounter Care Teams Glassblower Relationship Specialty Start Date End Date Nemo Savage [facility] [address] [place] [address] PCP - General Family Medicine 04/14/22 Crystal Vital PharmD [address] [place] [address] Pharmacist Internal Medicine 05/16/24 Carlos A Faustin, LAYNE [address] [place] [address] Registered Nurse Family Medicine 03/07/25 Maya Spicer 03/07/25 documented as of this encounter
--- OUTSIDE RECORDS SUMMARY | 2025-05-09 11:42 | XMS_ITS | Encounter Summary ---
Author Organization [employer] Address [address] [place] [address] 7t [place] [address] Care Team Providers Care Environmental Economist Name Role Phone Nemo Savage IMPLEMENTATION ENGINEER Primary Care Provider [phone] Crystal Vital PharmD Unavailable Carlos A Faustin RN Unavailable [phone] Maya Spicer Unavailable Reason for Visit * Reason Comments Med Refill Encounter Details Date Type Department Care Team (Late st Contact Info) Description 04/20/2023 Refill [facility] MEDICINE [address] [place], [place] [phone] Gokul Weinstein AGNP Social History Tobacco Use [...] Description 05/15/2025 10:30 AM EDT Medication Management [facility] MEDICINE [address] [place], [place] [phone] Crystal Vital, PharmD [address] [place] [address] 05/29/2025 9:45 AM EDT Office Visit [facility] CHC MED & PEDS [address] [place] [address] Nemo Savage [facility] [address] [place] [address] documented as of this encounter Visit Diagnoses Not on filedocumented in this encounter Additional Health Concerns Assessment Noted Time PHQ-9 Depression Total Score: 21 023 8:54 AM EST documented as of this encounter Care Teams Environmental Economist Relationship Specialty Start Date End Date JanetteNemo [facility] [address] [place] [address] PCP - General Family Medicine 04/14/22 Crystal Vital, PharmD [address] [place] [address] Pharmacist Internal Medicine 05/16/24 Carlos A Faustin, RN [address] [place] [address] Registered Nurse Family Medicine 03/07/25 Maya Spicer 03/07/25 documented as of this encounter
--- OUTSIDE RECORDS SUMMARY | 2025-05-09 11:42 | XMS_ITS | Encounter Summary ---
Author Organization [employer] Address [address] [place] [address] 7t [place] [address] Care Team Providers Care Manager Social Media Name Role Phone Nemo Savage Primary Care Provider [phone] Crystal Vital PharmD Unavailable [phone] Carlos A Faustin RN Unavailable [phone] Maya Spicer Unavailable Encounter Details Date Type Department Care Team (Late Contact Info) Description 05/01/2023 Orders Only [facility] CHC MED & PEDS [address] [place], [place] [phone] Kirsten Allen LPN Social History Tobacco Use [...] Department Care Team (Late Contact Info) Description 05/15/2025 10:30 AM EDT Medication Management [facility] MEDICINE [address] [place] [address] Crystal Vital PharmD [address] [place] [address] 05/29/2025 9:45 AM EDT Office Visit [facility] CHC MED & PEDS [address] [place] [address] JanetteNemo jimenez [facility] [address] [place] [address] documented as of this encounter Visit Diagnoses Not on filedocumented in this encounter Additional Health Concerns Assessment Noted Time PHQ-9 Depression Total Score: 21 023 8:54 AM EST documented as of this encounter Care Teams Manager Social Media Relationship Specialty Start Date End Date Nemo Savage [facility] [address] [place] [address] PCP - General Family Medicine 04/14/22 Crystal Vital, PharmD [address] [place] [address] Pharmacist Internal Medicine 05/16/24 Carlos A Faustin, RN [address] [place] [address] Registered Nurse Family Medicine 03/07/25 Maya Spicer 03/07/25 documented as of this encounter
--- OUTSIDE RECORDS SUMMARY | 2025-05-09 11:42 | XMS_ITS | Encounter Summary ---
Author Organization [employer] Address [address] [place] [address] 7t [place] [address] Care Team Providers Care Delivery Consultant Name Role Phone Nemo Savage CHIEF RADIATION THERAPIST Primary Care Provider [phone] Crystal Vital PharmD Unavailable Carlos A Faustin RN Unavailable [phone] Maya Spicer Unavailable Reason for Visit * Reason Comments Med Refill Encounter Details Date Type Department Care Team (Late st Contact Info) Description 11/14/2024 Refill [facility] 230 [place], [place] [phone] Crystal Vital, PharmD [address] [place] [address] Type 2 diabetes mellitus with hyperglycemia, with long-term current use of insulin ([facility]) Social History Tobacco Use Types [...] Description 05/15/2025 10:30 AM EDT Medication Management [facility] 230 [place] [address] Crystal Vital PharmD [address] [place] [address] 05/29/2025 9:45 AM EDT Office Visit [facility] 505 [place] [address] [facility] [address] [place] [address] documented as of this encounter Goals Goal Patient Goal Type Associated Problems Recent Progress Patient-Stated? Author Hemoglobin A1c < 7.5 Result Component 8.1(03/24/2025 10:27 AM EDT) No Crystal Vital, PharmD documented as of this encounter Visit Diagnoses Diagnosis Type 2 diabetes mellitus with hyperglycemia, with long-term current use of insulin ([facility]) documented in this encounter Additional Health Concerns Assessment Noted Time PHQ-9 Depression Total Score: 8 11/01/19 25 1:04 PM EDT documented as of this encounter Care Teams Delivery Consultant Relationship Specialty Start Date End Date BaileyNemo jimenez BERRY [address] [place] [address] PCP - General Family Medicine 04/14/22 Crystal Vital, VerenaD [address] [place] [address] Pharmacist Internal Medicine 05/16/24 Carlos A Faustin, LAYNE [address] [place] [address] Registered Nurse Family Medicine 03/07/25 Maya Spicer 03/07/25 documented as of this encounter
--- OUTSIDE RECORDS SUMMARY | 2025-05-09 11:42 | XMS_ITS ---
Author Organization [employer] Address [address] [place] [address] 7 [place] [address] Care Team Providers Care Event Representative Name Role Phone Janette Nemo SMART Primary Care Provider [phone] Crystal Vital PharmD Unavailable Carlos A Faustin RN Unavailable [phone] Maya Spicer Unavailable CHW Complex Status:Enrolled (Active) Start date:03/07/2025 Enrollment date:03/14/2025 Enrollment reason:ADT Feed Overview ED- Patient went to [facility] ED on 03/06/25. . Case Team Name Relationship Phone Maya Spicer(Responsible Staff) Continued Care and Services Coordination
--- OUTSIDE RECORDS SUMMARY | 2025-05-09 11:42 | XMS_ITS | Encounter Summary ---
Author Organization [employer] Address [address] [facility] 7t [place] [address] Care Team Providers Care Senior Sales Consultant Name Role Phone Janette [facility] Primary Care Provider [phone] Crystal Vital PharmD Unavailable [phone] Carlos A Faustin RN Unavailable [phone] Maya Spicer Unavailable Encounter Details Date Type Department Care Team (Latest Contact Info) Description 11/30/2024 Orders Only [facility] 230 [place], [place] [phone] [facility] 230 [place] [address] Hypercholesterolemia with LDL greater than 190 mg/dL [...] the past 12 months, has t he [employer], [employer], oil or water Fare[employer] threatened to shut off services in your [...] Description 05/15/2025 10:30 AM EDT Medication Management [facility] [address] [place] [address] Crystal Vital PharmKatiana [address] [place] [address] 05/29/2025 9:45 AM EDT Office Visit [facility] 505 [place] [address] [facility] 230 [place] [address] documented as of this encounter Goals Goal [...] as of this encounter Care Teams Senior Sales Consultant Relationship Specialty Start Date End Date Nemo Savage, POINTER MACHINE OPERATOR 230 [place] [address] PCP - General Family Medicine 04/14/22 Crystal Vital PharmD 230 [place] [address] Pharmacist Internal Medicine 05/16/24 Carlos A Faustin, LAYNE 505 [place] [address] Registered Nurse Family Medicine 03/07/25 Maya Spicer 03/07/25 documented as of this encounter
--- OUTSIDE RECORDS SUMMARY | 2025-05-09 11:42 | XMS_ITS | Encounter Summary ---
Author Organization [employer] Address [address] [facility] 7t [place] [address] Care Team Providers Care Curb Supervisor Name Role Phone [facility] Primary Care Provider Crystal Vital PharmD Unavailable [phone] Carlos A Faustin RN Unavailable [phone] Maya Spicer Unavailable Reason for Visit * Reason Onset Date Comments Care Coordination 03/24/2025 Encounter Details Date Type Department Care Team (Late st Contact Info) Description 03/24/2025 Results Follow-Up [facility] 230 [place], [place] [phone] [facility] 230 [place] [address] TSH Social History Tobacco Use Types Packs/Day Years [...] AM EDT documented as of this encounter Functional Status * Over the last 2 weeks, how often have you been bothered by any of the following problems? Question Answer Date of Assessment Author Feeling nervous, anxious, or on edge 1 03/2025 9:44 AM EDT Elizabeth Carcamo MA Not being able to stop or co ntrol worrying 2 03/24/2025 9:44 AM EDT Elizabeth Carcamo M A Worrying too much about diff erent things 2 03/24/2025 9:44 AM EDT Elizabeth Carcamo M A Trouble relaxing 1 03/24/2025 9:44 AM EDT Elizabeth Olivia MA Being so restless that it is hard to sit still 2 03/24/2025 9:44 AM EDT Elizabeth Carcamo M A Becoming easily annoyed or irritable 2 03/2025 9:44 AM EDT Elizabeth Carcamo MA Feeling afraid as if somethi ng awful might happen 2 03/24/2025 9:44 AM EDT Elizabeth Carcamo M A GRAEME-7 Total Score 12 03/24/2025 9:44 AM EDT Elizabeth Carcamo MA documented as of this encounter Miscellaneous Notes * Telephone Encounter - Delilah Melchor RN - 03/29/2025 10:24 AM EDT TC placed to pt. And advised of bloodwork from 03/24/25 showing elevated TSH, pt. Confirms she takes 225mcg daily (in medbox), on an empty stomach. Pt. Has rxs for 200+25mcg doses. Advised pt. PCP would like pt. To increase dose and pt. Agrees to plan, will start taking when put into medbox. Pt. Willf/up with PCP at scheduled appt 05/10/25 or sooner prn. Pt. Is also scheduled for next CDTM appt 05/15/25. * Telephone Encounter - Eric Herron RN - 03/24/2025 1:36 PM EDT TC placed to [facility] Endocrinology, Dr. Lowe) [phone] regarding below message. RN inquired if the patient is still an patient at there practice, the FD reported patient No show on 10/27/2023. The office reported they are willing to see the patient again. FD reported they need an new referral for DM and Hypothyroidism and they will contact the patient for an appt once the referral is approved. RN verbalized understanding. * Telephone Encounter - Eric Herron RN - 03/24/2025 1:32 PM EDT ----- Message from [facility] sent at 03/24/2025 1:10 PM EDT ----- Hi! Patient used to be followed by [facility] for there thyroid--can you see if she is still seeing them? If not we should bump up her levothyroxine. Let me know. Thanks! ----- Message ----- From: Interface, Lab Results In Sent: 03/24/2025 12:36 PM EDT To: BERRY Douglas documented in this encounter Plan of Treatment Upcoming Encounters Date Type Department Care Team (Late st Contact Info) Description 05/15/2025 10:30 AM EDT Medication Management [facility] 230 [place] [address] Crystal Vital, PharmD 230 [place] [address] 05/29/2025 9:45 AM EDT Office Visit [facility] 505 [place], [place] [phone] Nemo Savage FNP 230 [place] [address] documented as of this encounter Goals Goal Patient Goal Type Associated Problems Recent Progress Patient-Stated? Author Hemoglobin A1c < 7.5 Result Component 8.1(03/24/2025 10:27 AM EDT) No Crystal Vital, PharmD documented as of this encounter Visit Diagnoses Not on filedocumented in this encounter Additional Health Concerns Assessment Noted Time PHQ-9 Depression Total Score: 8 02/04/20 25 1:07 PM EDT documented as of this encounter Care Teams Curb Supervisor Relationship Specialty Start Date End Date Nemo SavageBERRY 230 [place] [address] PCP - General Family Medicine 04/14/22 Crystal Vital, PharmD [address] [place] [address] Pharmacist Internal Medicine 05/16/24 Carlos A Faustin, LAYNE 505 [place], [place] [phone] Registered Nurse Family Medicine 03/07/25 Maya Spicer 03/07/25 documented as of this encounter
--- OUTSIDE RECORDS SUMMARY | 2025-05-09 11:42 | XMS_ITS | Clinical Summary ---
Author Organization [address] [facility] Address [address] [place] [address] Phone Care Team Providers Care Aviation Support Equipment Repairer Name Role Phone [facility] Primary Care Provider [phone] Allergies Active Allergy Reactions Criticality Noted Date [...] Fibromyalgia Asthma MORALES on CPAP Diabetes mellitus ([facility] V24, [facility] V28) Migraines Social History Tobacco [...] 07/20/2022 Social Influencers of Health Screening 07/20/2022 RSV Immunization Adult Patients (1 - Risk 60-74 years 1-dose series) 2024 Depression Screening 08/17/2024 Diabetes: Annual Urine Albumin-Creatinine Ratio (uACR) 11/15/2024 Hypertension/CHF/CAD Annual BMP Blood Test 11/15/2024 COVID-19 Vaccine ( season) 2025 04/07/2022, 09/04/2021, 08/13/2021 Influenza Vaccine (#1) 2025 , 06/17/2022, 05/10/2018, [...] Status: Finalized Attending MD: Lino Curtis DO, [id number] Procedure Date No Time: 11/15/2024 Procedure: Colonoscopy [...] the physician, the nurse, the anesthesiologist, the stitcher set up operator automatic and the plumbing service technician in the pre-procedure area in the [...] malignant neoplasm of colon CPT copyright 2020 [employer]. All rights reserved. The codes documented in this report are preliminary and upon linux security administrator review may be revised to meet current compliance requirements. LINO Curtis DO 11/15/2024 11:14:28 AM This report has been signed electronically.Lino Curtis DO Number of Addenda: 0 Note Initiated On: 11/15/2024 10:11 AM Scope Withdrawal Time: 0 hours 7 minutes 24 seconds Scope In: 11:03:11 AM Scope Out: 11:13:27 AM Endoscopy Department at [facility] - [address] [place] [id number] Procedure Note Lino Curtis DO - 11/15/2024 [facility] GI Patient Name: Vicky Nice Procedure Date: 11/15/2024 10:11 AM Date of : 1965 Age: 59 Gender: Female Note Status: Finalized Attending MD: Lino Curtis DO, [id number] Procedure Date No Time: 11/15/2024 Procedure: Colonoscopy [...] the physician, the nurse, the anesthesiologist, the stitcher set up operator automatic and thetechnician in the pre-procedure area in [...] for malignantneoplasm of colon CPT copyright 2020 [employer]. All rights reserved. The codes documented in this report are preliminary and upon linux security administrator reviewmay be revised to meet current compliance requirements. LINO Curtis DO 11/15/2024 11:14:28 AM This report has been signed electronically.Lino Curtis DO Number of Addenda: 0 Note Initiated On: 11/15/2024 10:11 AM Scope Withdrawal Time: 0 hours 7 minutes 24 seconds Scope In: 11:03:11 AM Scope Out: 11:13:27 AM Endoscopy Department at [facility] - [address] [place] [phone] IMPRESSION: - The examination was otherwise normal [...] Maintenance Insurance MEDICAID - [place] Care Teams Aviation Support Equipment Repairer Relationship Specialty Start Date End Date [facility] [address] [phone] PCP - General Family Medicine 06/27/24
--- OUTSIDE RECORDS SUMMARY | 2025-05-09 11:42 | XMS_ITS | Encounter Summary ---
Author Organization [employer] Address [address] [place] [address] 7t [place] [address] Care Team Providers Care Air Intercept Controller Name Role Phone [facility] Primary Care Provider Crystal Vital PharmD Unavailable Carlos A Faustin RN Unavailable [phone] Maya Spicer Unavailable Reason for Visit * Reason Onset Date Comments Med Refill 08/01/2022 Encounter Details Date Type Department Care Team (Late st Contact Info) Description 08/01/2022 Telephone [facility] 230 [place], [place] [phone] [facility] 230 [place] [address] Med Refill Social History Tobacco Use Types [...] has trulicity .75mg, 1.5mg or 3mg. PCP OIL DISTRIBUTOR [place] documented in this encounter Plan of Treatment Upcoming Encounters Date Type Department Care Team (Late st Contact Info) Description 05/15/2025 10:30 AM EDT Medication Management [facility] [address] [place] [address] Crystal Vital PharmD 230 [place] [address] 05/29/2025 9:45 AM EDT Office Visit [facility] [address] [place] [address] Nemo Savage FNP 230 [place] [address] documented as of this encounter Visit Diagnoses Not on filedocumented in this encounter Care Teams Air Intercept Controller Relationship Specialty Start Date End Date Nemo Savage FNP [address] [place] [address] PCP - General Family Medicine 04/14/22 Crystal Vital, PharmD [address] [place] [address] Pharmacist Internal Medicine 05/16/24 Carlos A Faustin, RN 505 [place] [address] Registered Nurse Family Medicine 03/07/25 Maya Spicer 03/07/25 documented as of this encounter
--- OUTSIDE RECORDS SUMMARY | 2025-05-09 11:42 | XMS_ITS | Encounter Summary ---
Author Organization [employer] Address [address] [place] [address] 7t [place] [address] Care Team Providers Care Jewelry Appraiser Name Role Phone Nemo Savage DIRECTOR OF STAFF DEVELOPMENT Primary Care Provider [phone] Crystal Vital PharmD Unavailable Carlos A Faustin RN Unavailable [phone] Maya Spicer Unavailable Encounter Details Date Type Department Care Team (Late st Contact Info) Description 10/27/2022 Orders Only [facility] [address] [place] [address] Neyda Bray LPN Social History Tobacco Use [...] Description 05/15/2025 10:30 AM EDT Medication Management [facility] MEDICINE 230 [place] [address] Crystal Vital PharmD [address] [place] [address] 05/29/2025 9:45 AM EDT Office Visit [facility] 505 [place] [address] WishonNemo [facility] [address] [place] [address] documented as of this encounter Visit Diagnoses Not on filedocumented in this encounter Additional Health Concerns Assessment Noted Time PHQ-9 Depression Total Score: 21 023 8:54 AM EST documented as of this encounter Care Teams Jewelry Appraiser Relationship Specialty Start Date End Date JanetteNemo jimenez [facility] 230 [place] [address] PCP - General Family Medicine 04/14/22 Crystal Vital, VerenaD [address] [place] [address] Pharmacist Internal Medicine 05/16/24 Carlos A Faustin, RN [address] [place] [address] Registered Nurse Family Medicine 03/07/25 Maya Spicer 03/07/25 documented as of this encounter
[2025-05-09 13:08] LABS: Thyroid Stimulating Hormone 13.98 uIU/mL (0.32-4.0)
[2025-05-09 13:38] LABS: Free T4 (Free Thyroxine) 0.80 ng/dL (0.71-1.85)
[2025-05-09 13:40] LABS: Cholesterol 173 mg/dL (<200); HDL Cholesterol 45 mg/dL (>40); Triglycerides 119 mg/dL (<150)
== END 2025-05-09 09:46 | disposition home or self-care (01) ==
LOC: HO.HHCL 09:45
PROVIDERS: PCP Registered Nurse; Visit Provider Registered Nurse
DX: Z01.818 Encounter for other preprocedural examination (principal); E78.00 Pure hypercholesterolemia, unspecified; E06.3 Autoimmune thyroiditis
CPT/HCPCS: 36415; 80061; 84439; 84443

== ENCOUNTER 2025-07-04 16:11 | Outpatient (REF) | payer MEDICAID, SELFPAY ==
[2025-07-04 17:19] LABS: Bacterial Vaginosis PCR NEGATIVE (Negative); Candida Group PCR NOT DETECTED (Not Detect); Candida glab krusei PCR NOT DETECTED (Not Detect); Trichomonas vaginalis PCR NOT DETECTED (Not Detect)
[2025-07-04 17:50] LABS: CT PCR NOT DETECTED (Not Detect.); NG PCR NOT DETECTED (Not Detect.)
== END 2025-07-04 16:12 | disposition home or self-care (01) ==
LOC: HO.HHCLNP 16:11
PROVIDERS: Visit Provider Nurse Practitioner Family
DX: R30.0 Dysuria (principal); Z20.2 Contact with and (suspected) exposure to infections with a predominantly sexual mode of transmission
CPT/HCPCS: 81515; 87086; 87491; 87591

== ENCOUNTER 2025-07-27 09:13 | Outpatient (REF) | payer MEDICAID, SELFPAY ==
[2025-07-27 11:39] LABS: Free T4 (Free Thyroxine) 1.60 ng/dL (0.71-1.85); Thyroid Stimulating Hormone 0.14 uIU/mL (0.32-4.0)
== END 2025-07-27 09:14 ==
LOC: HO.HHCL 09:13
PROVIDERS: PCP Registered Nurse
DX: E06.3 Autoimmune thyroiditis (principal)
CPT/HCPCS: 36415; 84439; 84443